=== PATIENT | female | born 1955 | race Caucasian/White ===

== ENCOUNTER 2016-08-08 16:02 | Inpatient (IN) | payer OTHER ==
[~2016-08-08] VITALS: Ht 152.4 cm; Wt 52.0 kg
[2016-08-08 16:06] VITALS: BP 138/76; PULSE 116; RESP 24; TEMP 97.9; O2SAT 95
--- NOTE | 2016-08-08 16:58 | PD ---
HPI Chief Complaint: Abdominal Pain Time Seen by Provider: 16:55 Travel History International Travel<30 days: No Contact w/Intl Traveler<30days: No Traveled to known affect area: No History of Present Illness HPI Patient is a 60-year-old female with a history of alcoholic cirrhosis presenting with worsening ascites. This began approximately one month ago she was seen in our ED previously. Outpatient order was given which her sister paid ashraf for the paracentesis. She has no insurance or PCP/GI and is working on outpatient assistance. She states she has some moderate discomfort on bilateral flanks. She is concerned because she's had shortness of breath as well which is worse with activity and lying flat. She denies any chest pain. She denies any cough or fevers. Denies history of CAD or CHF. She endorses pedal edema as well. She denies any fevers. She states she is not drinking or using Tylenol products. Endorses tobacco use. She has no other healthcare problems or complaints at this time. [facility] Past Medical History Cirrhosis: Yes Past Surgical History Other Surgery: Yes (PARACENTESIS) Social History Alcohol Use: No (stopped 3 months ago-occassional wine) Tobacco Use: Yes (2-3 cig day) Substance Use: No Allergies-Medications (Allergen,Severity, Reaction): Coded Allergies: No Known Allergies (Unverified , 08/08/16) Reported Meds & Prescriptions Reported Meds & Active Scripts Active No Active Prescriptions or Reported Medications Review of Systems Except as stated in HPI: all other systems reviewed are Neg Physical Exam Narrative GENERAL: Well-developed and well-nourished adult female in no acute distress. SKIN: Warm and dry. Good turgor without tenting. HEAD: Normocephalic and atraumatic. EYES: PERRL bilaterally, 5mm. EOMI bilaterally. No injection or icterus present. No proptosis. Lids without edema or erythema. ENT: Buccal mucosa pink and moist. Oropharynx free of erythema, tonsillar hypertrophy, masses, swelling, asymmetry and exudates. Uvula midline and airway patent. NECK: Supple, no midline tenderness, crepitus or step-offs. Trachea midline, no JVD. No cervical or facial lymphadenopathy. CARDIOVASCULAR: Regular rate and rhythm without murmurs, rubs, clicks or gallops. Radial and posterior tibial pulses 2+ bilaterally. 1+ pedal edema bilaterally. Negative bilateral Homans sign. RESPIRATORY: Fine crackles bilateral bases, otherwise clear to auscultation. No distress or use of accessory muscles. Speaks in full sentences. GASTROINTESTINAL: Distended abdomen with positive fluid wave. Caput medusae present. Non-tender.. Normal bowel sounds all 4 quadrants. No masses or organomegaly present. MUSCULOSKELETAL: Patient freely moving all four extremities spontaneously. Extremities without clubbing, cyanosis, or edema. No obvious deformities. NEUROLOGIC: CN II-XII grossly intact. Awake and alert. Motor grossly within normal limits. Normal speech. PSYCHIATRIC: Appropriate mood and affect; insight and judgment normal. Data Data Last Documented VS Vital Signs Date Time Temp Pulse Resp B/P Pulse Ox O2 Delivery O2 Flow Rate FiO2 08/08/16 18:51 103 16 111/66 96 Room Air 08/08/16 16:06 97.9 Orders Direct Bilirubin (08/08/16 16:50) Complete Blood Count With Diff (08/08/16 16:50) Comprehensive Metabolic Panel (08/08/16 16:50) Lipase (08/08/16 16:50) Prothrombin Time / Inr (Pt) (08/08/16 16:50) Act Partial Throm Time (Ptt) (08/08/16 16:50) Urinalysis - C+S If Indicated (08/08/16 16:50) Iv Access Insert/Monitor (08/08/16 16:50) Ecg Monitoring (08/08/16 16:50) Oximetry (08/08/16 16:50) Morphine Inj (Morphine Inj) (08/08/16 17:00) Sodium Chloride 0.9% Flush (Ns Flush) (08/08/16 17:00) Electrocardiogram (08/08/16 16:50) Chest, Single Ap (08/08/16 16:50) B-Type Natriuretic Peptide (08/08/16 16:50) Ammonia (08/08/16 16:50) Labs Laboratory Tests Test 08/08/16 17:10 White Blood Count 8.8 TH/MM3 Red Blood Count 3.98 MIL/MM3 Hemoglobin 13.4 GM/DL Hematocrit 40.1 % Mean Corpuscular Volume 100.7 FL Mean Corpuscular Hemoglobin 33.7 PG Mean Corpuscular Hemoglobin 33.4 % Concent Red Cell Distribution Width 16.1 % Platelet Count 111 TH/MM3 Mean Platelet Volume 9.1 FL Neutrophils (%) (Auto) 64.6 % Lymphocytes (%) (Auto) 17.2 % Monocytes (%) (Auto) 16.5 % Eosinophils (%) (Auto) 1.4 % Basophils (%) (Auto) 0.3 % Neutrophils # (Auto) 5.7 TH/MM3 Lymphocytes # (Auto) 1.5 TH/MM3 Monocytes # (Auto) 1.4 TH/MM3 Eosinophils # (Auto) 0.1 TH/MM3 Basophils # (Auto) 0.0 TH/MM3 CBC Comment DIFF FINAL Differential Comment Prothrombin Time 12.9 SEC Prothromb Time International 1.2 RATIO Ratio Activated Partial 27.1 SEC Thromboplast Time Sodium Level 131 MEQ/L Potassium Level 4.6 MEQ/L Chloride Level 101 MEQ/L Carbon Dioxide Level 16.3 MEQ/L Anion Gap 14 MEQ/L Blood Urea Nitrogen 32 MG/DL Creatinine 2.74 MG/DL Estimat Glomerular Filtration 18 ML/MIN Rate Random Glucose 91 MG/DL Calcium Level 7.7 MG/DL Total Bilirubin 1.6 MG/DL Direct Bilirubin 0.7 MG/DL Aspartate Amino Transf 39 U/L (AST/SGOT) Alanine Aminotransferase 15 U/L (ALT/SGPT) Alkaline Phosphatase 205 U/L Ammonia 55 MCMOL/L Total Protein 6.5 GM/DL Albumin 1.9 GM/DL Lipase 186 U/L [facility] Medical Decision Making Medical Screen Exam Complete: Yes Emergency Medical Condition: Yes Interpretation(s) Laboratory Tests Test 08/08/16 17:10 White Blood Count 8.8 TH/MM3 (4.0-11.0) Red Blood Count 3.98 MIL/MM3 (4.00-5.30) Hemoglobin 13.4 GM/DL (11.6-15.3) Hematocrit 40.1 % (35.0-46.0) Mean Corpuscular Volume 100.7 FL (80.0-100.0) Mean Corpuscular Hemoglobin 33.7 PG (27.0-34.0) Mean Corpuscular Hemoglobin 33.4 % Concent (32.0-36.0) Red Cell Distribution Width 16.1 % (11.6-17.2) Platelet Count 111 TH/MM3 (150-450) Mean Platelet Volume 9.1 FL (7.0-11.0) Neutrophils (%) (Auto) 64.6 % (16.0-70.0) Lymphocytes (%) (Auto) 17.2 % (9.0-44.0) Monocytes (%) (Auto) 16.5 % (0.0-8.0) Eosinophils (%) (Auto) 1.4 % (0.0-4.0) Basophils (%) (Auto) 0.3 % (0.0-2.0) Neutrophils # (Auto) 5.7 TH/MM3 (1.8-7.7) Lymphocytes # (Auto) 1.5 TH/MM3 (1.0-4.8) Monocytes # (Auto) 1.4 TH/MM3 (0-0.9) Eosinophils # (Auto) 0.1 TH/MM3 (0-0.4) Basophils # (Auto) 0.0 TH/MM3 (0-0.2) CBC Comment DIFF FINAL Differential Comment Prothrombin Time 12.9 SEC (9.8-11.6) Prothromb Time International 1.2 RATIO Ratio Activated Partial 27.1 SEC Thromboplast Time (24.3-30.1) Sodium Level 131 MEQ/L (136-145) Potassium Level 4.6 MEQ/L (3.5-5.1) Chloride Level 101 MEQ/L (98-107) Carbon Dioxide Level 16.3 MEQ/L (21.0-32.0) Anion Gap 14 MEQ/L (5-15) Blood Urea Nitrogen 32 MG/DL (7-18) Creatinine 2.74 MG/DL (0.50-1.00) Estimat Glomerular Filtration 18 ML/MIN (>89) Rate Random Glucose 91 MG/DL (74-106) Calcium Level 7.7 MG/DL (8.5-10.1) Total Bilirubin 1.6 MG/DL (0.2-1.0) Direct Bilirubin 0.7 MG/DL (0.0-0.2) Aspartate Amino Transf 39 U/L (15-37) (AST/SGOT) Alanine Aminotransferase 15 U/L (10-53) (ALT/SGPT) Alkaline Phosphatase 205 U/L (45-117) Ammonia 55 MCMOL/L (11-32) Total Protein 6.5 GM/DL (6.4-8.2) Albumin 1.9 GM/DL (3.4-5.0) Lipase 186 U/L (73-393) Last 24 hours Impressions Chest X-Ray 08/08/16 1650 Signed Impressions: Service Date/Time: Monday, August 08, 2016 17:03 - CONCLUSION: Unaerated otherwise negative. Hung Mendoza MD FACR Differential Diagnosis Ascites versus CHF versus cirrhosis versus SBP unlikely Narrative Course Patient is a 60-year-old female history of alcoholism and cirrhosis presenting with some ascites requesting paracentesis. This was recently diagnosed and June and she was able to get one as an outpatient but does not have any funds to pay for additional treatments and currently does not have insurance. This has been progressively worsening over the last 2 weeks. She also has some edema in the legs and dyspnea and MERINO and orthopnea. Mild tachycardia present on exam, find crackles in the bases and 1+ pedal edema bilaterally. Mildly tachypneic without respiratory distress or use of accessory muscles. Patient given morphine for pain and ordered chest x-ray, EKG and labs including BMP, direct bilirubin and ammonia. Chest x-rays under aerated likely due to increased intra-abdominal pressure. She shows platelets 111, MCV 100.7. INR 1.2. Metabolic panel shows bicarbonate 16.3, BUN 32, creatinine 2.74. Anion gap 14. Ammonia 55 about 1.9. Reviewed with Dr. Rubalcava who agrees that this patient has acute renal failure likely secondary to hepatorenal syndrome requiring admission at this time. He also evaluated the patient and agree she is not distress or emergent risk of respiratory failure. Report was given to Dr. Donis who accepted the admission. Diagnosis Primary Impression: Acute renal failure (ARF) Qualified Code: N17.9 - Acute renal failure, unspecified acute renal failure type Additional Impressions: Hepatorenal syndrome Ascites due to alcoholic cirrhosis Admitting Information Admitting Physician Requests: Admit Scripts No Active Prescriptions or Reported Meds Condition: Stable Jaden Rodriguez III Aug 08, 2016 16:58
[2016-08-08] MEDS ORDERED: MORPHINE SULFATE 4 MG/ML INJ IV PUSH ONE (17:00)
[2016-08-08] MEDS ORDERED: SODIUM CHLORIDE 0.9% FLUSH 5 ML FLUSH IVF PRN (17:00)
--- NOTE | 2016-08-08 17:11 | RADRPT ---
EXAM DATE/TIME: 08/08/2016 17:03 [place] COMPARISON: No previous studies available for comparison. INDICATIONS : Shortness of breath. Ascites. MEDICAL HISTORY : Cirrhosis. SURGICAL HISTORY : None. ENCOUNTER: Initial ACUITY: 1 week PAIN SCORE: 5/10 LOCATION: Bilateral chest FINDINGS: Lungs are markedly under aerated but clear. The heart and pulmonary vascularity are normal. The porti on of the bony skeleton visualized is unremarkable. CONCLUSION: Unaerated otherwise negative. Hung Mendoza MD FACR on August 08, 2016 at 17:09 Board Certified Radiologist. This report was verified electronically.
[2016-08-08 17:49] LABS: AUTOMATED NEUTROPHIL # 5.7 TH/MM3 (1.8-7.7); BASOPHIL % 0.3 % (0.0-2.0); EOSINOPHIL # 0.1 TH/MM3 (0-0.4); EOSINOPHIL % 1.4 % (0.0-4.0); HEMATOCRIT 40.1 % (35.0-46.0); HEMO FLAGS DIFF FINAL; LYMPH % 17.2 % (9.0-44.0); LYMPHOCYTE # 1.5 TH/MM3 (1.0-4.8); MEAN CELL VOLUME 100.7 FL (80.0-100.0); MEAN CORPUSCULAR HEMOGLOBIN 33.7 PG (27.0-34.0); MEAN CORPUSCULAR HGB CONC 33.4 % (32.0-36.0); MONO % 16.5 % (0.0-8.0); NEUT % 64.6 % (16.0-70.0); PLATELET COUNT 111 TH/MM3 (150-450); RED BLOOD COUNT 3.98 MIL/MM3 (4.00-5.30); RED CELL DISTRIBUTION WIDTH 16.1 % (11.6-17.2); WHITE BLOOD COUNT 8.8 TH/MM3 (4.0-11.0)
[2016-08-08 17:52] LABS: APTT (PATIENT) 27.1 SEC (24.3-30.1); INTERNATIONAL NORMALIZED RATIO 1.2 RATIO; PROTHROMBIN TIME - PATIENT 12.9 SEC (9.8-11.6)
[2016-08-08 18:03] LABS: ANION GAP 14 MEQ/L (5-15); AST (GOT) 39 U/L (15-37); BICARBONATE 16.3 MEQ/L (21.0-32.0); BLOOD UREA NITROGEN 32 MG/DL (7-18); CHLORIDE 101 MEQ/L (98-107); GLOMERULAR FILTRATION RATE 18 ML/MIN (>89); POTASSIUM 4.6 MEQ/L (3.5-5.1); SODIUM (NA) 131 MEQ/L (136-145)
[2016-08-08 18:05] LABS: ALKALINE PHOSPHATASE 205 U/L (45-117); ALT (GPT) 15 U/L (10-53); TOTAL BILIRUBIN ADULT 1.6 MG/DL (0.2-1.0)
[2016-08-08 18:51] VITALS: BP 111/66; PULSE 103; RESP 16; O2SAT 96
[2016-08-08 19:21] LABS: BACTERIA, URINE OCC /hpf; BLOOD, URINE MOD (NEG); COMMENT (UR) CULTURE INDICATED; CULTURE IF INDICATED CULTURE INDICATED; GLUCOSE,URINE TRACE mg/dL (NEG); KETONE, URINE NEG (NEG); MUCUS URINE FEW /lpf (OCC); NITRITE,URINE NEG (NEG); PH, URINE 5.5 (5.0-8.5); SQUAMOUS EPITHELIAL CELL URINE 1 /hpf (0-5); URINE COLOR YELLOW (YELLW/STRAW)
--- NOTE | 2016-08-08 22:26 | HHI.HP ---
HPI Service Family Medicine Primary Care Physician No Primary Care Physician Admission Diagnosis ARF, ASCITES, HEPATORENAL? Diagnoses: International Travel<30 Days: No Contact w/Intl Traveler<30days: No Known Affected Area: No History of Present Illness Ms. Parker is a 60 y/o F with a PMHx of cirrhosis presenting with ABD discomfort and dyspnea on exertion. She is accompanied by her son who assists with her interview. Patient was diagnosed with cirrhosis related to alcohol consumption in late 2015. She therapeutic paracentesis performed on 07/22/16 for abdominal discomfort due to ascites.Since that paracentesis her status did improve, however over the last week she began to notice her abdomen beginning to increase in size. She began to experience dyspnea on exertion approximately a week ago, however now due to the increased ascitic fluid is experiencing dyspnea at rest. Over this time from she also has experienced increased fatigue , balance issues, as well as decreased urination and bowel movements. She had a nontraumatic fall approximately 1 week ago due to loss of balance without injury. She reports that her baseline she urinates 3 times a day, but now only has trickles of urine. She states her last BM was 1 week ago and that it was nonbloody diarrhea. Of note patient has been taking Aleve up to 4 times per day to assist with pain due to increased abdominal distention. Otherwise she has no complaints and denies any fevers, chills, chest pain, nausea, vomiting, or calf tenderness. She reports that her last drink was approximately 2 months ago. ( Jesús Sharif MD R1) Review of Systems Constitutional: DENIES: Fever Eyes: DENIES: Blurred vision, Eye pain Ears, nose, mouth, throat: DENIES: Tinnitus, Hearing loss Respiratory: COMPLAINS OF: Shortness of breath, DENIES: Cough Cardiovascular: DENIES: Chest pain, Palpitations Gastrointestinal: COMPLAINS OF: Diarrhea, DENIES: Nausea, Vomiting Musculoskeletal: COMPLAINS OF: Stiffness (Leg stiffness) Integumentary: DENIES: Rash Hematologic/lymphatic: DENIES: Lymphadenopathy Immunologic/allergic: DENIES: Urticaria Neurologic: DENIES: Headache Psychiatric: DENIES: Mood changes (Jesús Sharif MD R1) Past Family Social History Past Medical History Alcoholic liver cirrhosis Past Surgical History ABD Paracentesis x1 (07/22/16) (Jesús Sharif MD R1) Allergies: Coded Allergies: No Known Allergies (Unverified , 08/08/16) Family History Mother - Atrial fibrillation, COPD, CHF, Renal Disease Social History Alcohol - no drinks for last 2 months, up to 4 per day at the most during her history Tobacco - pack per week Illicit drugs - none reported Lives in [facility] with her mother in a house. Currently unemployed. No PCP. No insurance currently, applied for patient assistance. (Jesús Sharif MD R1) Physical Exam Vital Signs Vital Signs Date Time Temp Pulse Resp B/P Pulse Ox O2 Delivery O2 Flow Rate FiO2 08/08/16 18:51 103 16 111/66 96 Room Air 08/08/16 16:15 25 08/08/16 16:06 97.9 116 24 138/76 95 Room Air Physical Exam GENERAL: 60 y/o F lying in bed in no acute distress SKIN: Warm and dry. Capillary refill <2 seconds. HEENT: Normocephalic, atraumatic with EOMI. MMM with clear oropharynx. No scleral icterus or injection. CARDIOVASCULAR: RRR with no MGR. Visible JVP. RESPIRATORY: Fine crackles throughout both lung dobson. No increased work of breathing. GASTROINTESTINAL: Nontender distended ABD with caput medusae. Fluid wave positive. Normal BS. No palpable masses. Rebound tenderness negative. Difficult to evaluate organomegaly at this time. MUSCULOSKELETAL: Extremities without cyanosis. Pedal edema 1+. 2+ pulses in all 4 extremities. No calf tenderness. NEUROLOGICAL: Awake and alert. Motor and sensory grossly within normal limits. Muscle strength WNL. Normal speech. Laboratory Laboratory Tests Test 08/08/16 08/08/16 17:10 19:00 White Blood Count 8.8 Red Blood Count 3.98 Hemoglobin 13.4 Hematocrit 40.1 Mean Corpuscular Volume 100.7 Mean Corpuscular Hemoglobin 33.7 Mean Corpuscular Hemoglobin 33.4 Concent Red Cell Distribution Width 16.1 Platelet Count 111 Mean Platelet Volume 9.1 Neutrophils (%) (Auto) 64.6 Lymphocytes (%) (Auto) 17.2 Monocytes (%) (Auto) 16.5 Eosinophils (%) (Auto) 1.4 Basophils (%) (Auto) 0.3 Neutrophils # (Auto) 5.7 Lymphocytes # (Auto) 1.5 Monocytes # (Auto) 1.4 Eosinophils # (Auto) 0.1 Basophils # (Auto) 0.0 CBC Comment DIFF FINAL Differential Comment Prothrombin Time 12.9 Prothromb Time International 1.2 Ratio Activated Partial 27.1 Thromboplast Time Sodium Level 131 Potassium Level 4.6 Chloride Level 101 Carbon Dioxide Level 16.3 Anion Gap 14 Blood Urea Nitrogen 32 Creatinine 2.74 Estimat Glomerular Filtration 18 Rate Random Glucose 91 Calcium Level 7.7 Total Bilirubin 1.6 Direct Bilirubin 0.7 Aspartate Amino Transf 39 (AST/SGOT) Alanine Aminotransferase 15 (ALT/SGPT) Alkaline Phosphatase 205 Ammonia 55 B-Type Natriuretic Peptide 83 Total Protein 6.5 Albumin 1.9 Lipase 186 Urine Color YELLOW Urine Turbidity CLOUDY Urine pH 5.5 Urine Specific [place] 1.017 Urine Protein 30 Urine Glucose (UA) TRACE Urine Ketones NEG Urine Occult Blood MOD Urine Nitrite NEG Urine Bilirubin NEG Urine Urobilinogen LESS THAN 2.0 Urine Leukocyte Esterase LARGE Urine RBC 17 Urine WBC Urine WBC Clumps MANY Urine Squamous Epithelial 1 Cells Urine Bacteria OCC Urine Mucus FEW Microscopic Urinalysis Comment CULTURE INDICATED Date/Time Procedure Status Source Growth 08/08/16 19:00 Urine Culture Received Urine Random Urine Pending (Jesús Sharif MD R1) Result Diagram: 08/08/16170908/08/16 171 Assessment and Plan Assessment and Plan Ms. Parker is a 60 y/o F with a PMHx of cirrhosis presenting with ABD discomfort and dyspnea on exertion. Code Status FULL Discussed Condition With Dr. Rodriguez, ER Physician Dr. Madrid (Jesús Sharif MD R1) Problem List: (1) Hepatorenal syndrome Status: Acute Plan: Patient with alcoholic cirrhosis presenting with increased abdominal distention and dyspnea found to have creatinine of 2.74 (baseline 0.4) likely causing hepatorenal syndrome CXR: Negative exam CBC: WBC 8.8, H/H13.4/40.1, platelets 111 CMP: Sodium 131, BUN 32, creatinine 2.74, GFR 18, calcium 7.7, T bili 1.6, AST 39, ALT 15, alkaline phosphatase 205: LDH 320 Coags: PT 12.9, INR 1.2, PTT 27.1 UA: Cloudy, 30 protein, moderate occult blood, large leukocyte esterase, many white blood cell clots, culture indicated Urine culture: Pending Ammonia: 55 BMP: 83 Albumin 1.9 Lipase: 186 Alcohol: Less than 3 Lasix 40 mg IVP once Monitor strict I/Os Multivitamin, thiamine, and folic acid daily Ultrasound-guided abdominal paracentesis: Pending with fluid evaluation to follow Consult nephrology (2) Acute renal failure (ARF) Status: Acute Plan: Patient with creatinine of 2.74 (baseline 0.4 per chart review) Please see plan as above for hepatorenal syndrome (3) Ascites due to alcoholic cirrhosis Status: Acute Plan: Patient diagnosed with alcoholic cirrhosis presenting with increased abdominal distention due to ascites Please see plan as above for hepatorenal syndrome (4) Nutrition, metabolism, and development symptoms Status: Acute Plan: Fluids: Deferred at this time Electrolytes: Monitor with daily labs Diet: Renal diet (5) No contraindication to deep vein thrombosis (DVT) prophylaxis Status: Acute Plan: Hold heparin prior to paracentesis procedure (Jesús Sharif MD R1) Physician Certification 2 Midnight Certification Type: Admission for Inpatient Services Order for Inpatient Services The services are ordered in accordance with Medicare regulations or non- Medicare payer requirements, as applicable. In the case of services not specified as inpatient-only, they are appropriately provided as inpatient services in accordance with the 2-midnight benchmark. Estimated LOS (days): 3 3 days is the estimated time the patient will need to remain in the hospital, assuming treatment plan goals are met and no additional complications. Post-Hospital Plan: Home (Jesús Sharif MD R1) 2 Midnight Certification Type: Admission for Inpatient Services Post-Hospital Plan: Home (Christiano Roman MD) Problem Qualifiers (1) Acute renal failure (ARF): Qualified Code: N17.9 - Acute renal failure, unspecified acute renal failure type Jesús Sharif MD R1 Aug 08, 2016 22:26 Christiano Roman MD Aug 09, 2016 16:15
[2016-08-08 23:00] VITALS: BP 115/71; PULSE 104; RESP 16; O2SAT 97
[2016-08-09] VITALS (11 sets, daily range): BP systolic 96–128; BP diastolic 54–79; PULSE 86–107; RESP 14–21; TEMP 96.6–98.3; O2SAT 91–100
[2016-08-09] MEDS ORDERED: HEPARIN SODIUM - SQ 10,000 UNITS/ML VIAL SQ SCH
[2016-08-09] MEDS ORDERED: FUROSEMIDE 40 MG/4 ML VIAL IV PUSH ONE
[2016-08-09] MEDS ORDERED: MORPHINE SULFATE 4 MG/ML INJ IV PUSH PRN
[2016-08-09] MEDS: SODIUM CHLORIDE 0.9% FLUSH 5 ML FLUSH FLUSH SCH ×3 (01:07→21:01)
[2016-08-09 01:12] LABS: LDH SERUM 320 U/L (84-246)
[2016-08-09] MEDS ORDERED: NALOXONE HCL 0.4 MG/ML AMP IV PRN ×2 (07:15)
[2016-08-09] MEDS: cefTRIAXone INJ 1,000 MG in SODIUM CHLORIDE 0.9% INJ 100 ML IV SCH ×3 (09:00→21:02)
[2016-08-09] MEDS: FOLIC ACID 1 MG TAB PO SCH (09:03)
[2016-08-09] MEDS: MULTIVITAMIN TAB PO SCH (09:03)
[2016-08-09] MEDS: THIAMINE HCL 100 MG TAB PO SCH (09:03)
[2016-08-09] MEDS: LACTULOSE SYRUP 20 GM/30 ML CUP PO SCH (09:04)
--- NOTE | 2016-08-09 10:07 | EKG ---
Date Performed: 08/08/2016 Time Performed: 17:48:05 PTAGE: 60 years EKG: SINUS TACHYCARDIA LOW QRS VOLTAGE IN PRECORDIAL LEADS ABNORMAL RHYTHM ECG NO PREVIOUS TRACING DOCTOR: Mo Oneal Interpretating Date/Time 08/09/2016 10:03:38
--- NOTE | 2016-08-09 11:30 | PD.RAD ---
Post US Procedure Prog Note Pre Procedure Diagnosis: (1) Hepatorenal syndrome (2) Ascites due to alcoholic cirrhosis Post Procedure Diagnosis: (1) Hepatorenal syndrome (2) Ascites due to alcoholic cirrhosis Procedure Date: Aug 09, 2016 Supervising Radiologist: Yaakov Salomon Anesthesia: Local Plan of Activity Patient to Unit: Nursing Unit Patient Condition: Fair See PACS Report for procedural detail/treatment Drainage Procedure Procedure 1 Imaging Guidance: Ultrasound Side: Right Procedure Type: Paracentesis Procedure: Removal Drainage: Suction Fluid Description: Cloudy, Yellow Yaakov Salomon MD Aug 09, 2016 11:30
--- NOTE | 2016-08-09 11:54 | PD.CONS ---
HPI Service Nephrology Consult Requested By Dr. Sharif Reason for Consult Acute renal failure Primary Care Physician No Primary Care Physician History of Present Illness Patient is a 60-year-old female with history of cirrhosis of the liver, she has previous paracenteses, she was told her cirrhosis due to alcoholism and she admitted to drinking 4 drinks a day along period of time, she has not noticed decreased urine output increasing abdominal girth and decrease in stool and her appetite. Her creatinine is 2.74, this is change her June 2016 labs showed creatinine of 0.4. She was taking Aleve daily bases. Review of Systems Constitutional: COMPLAINS OF: Fatigue Cardiovascular: COMPLAINS OF: Lower Extremity Edema Gastrointestinal: COMPLAINS OF: Abdominal pain, Anorexia Genitourinary: COMPLAINS OF: Urinary frequency Past Family Social History Allergies: Coded Allergies: No Known Allergies (Unverified , 08/08/16) Past Medical History Alcoholic cirrhosis Past Surgical History Paracenteses done Reported Medications Reported Meds & Active Scripts Active No Active Prescriptions or Reported Medications Active Ordered Medications Current Medications Medications (Trade) Dose Ordered Sig/Cosme Route Start Time Stop Time Status Last Admin (NS Flush) 2 ml UNSCH PRN FLUSH 08/09/16 00:00 (NS Flush) 2 ml BID FLUSH 08/09/16 00:00 08/09/16 01:07 (Narcan Inj) 0.4 mg UNSCH PRN IV 08/09/16 00:00 (Morphine Inj) 2 mg Q4HR PRN IV PUSH 08/09/16 00:00 08/09/16 01:50 (Roxicodone) 10 mg Q4H PRN PO 08/09/16 07:15 (Roxicodone) 5 mg Q4H PRN PO 08/09/16 07:15 08/09/16 09:07 (Theragran) 1 tab DAILY PO 08/09/16 09:00 08/09/16 09:03 (Vitamin B1) 100 mg DAILY PO 08/09/16 09:00 08/09/16 09:03 (Folate) 1 mg DAILY PO 08/09/16 09:00 08/09/16 09:03 Lactulose 15 ml 15 ml DAILY PO 08/09/16 09:00 08/09/16 09:04 (Rocephin Inj/NS Inj) 100 ml @ 200 mls/hr Q24H IV 08/09/16 09:00 08/09/16 09:04 Family History Mother has history of heart disease, and renal disease Social History She has history of 4 drinks per day and quit about 2 months ago Smokes cigarettes one pack per week Physical Exam Vital Signs Vital Signs Date Time Temp Pulse Resp B/P Pulse Ox O2 Delivery O2 Flow Rate FiO2 08/09/16 11:25 97.0 93 16 107/63 91 08/09/16 11:12 97.0 93 14 104/58 97 08/09/16 10:09 92 21 08/09/16 09:41 97.0 103 18 119/78 95 08/09/16 08:46 98.3 104 21 114/79 97 08/09/16 05:14 97.8 105 20 108/69 95 08/09/16 01:57 97.8 107 20 128/72 95 08/09/16 01:00 96 08/08/16 23:00 104 16 115/71 97 Room Air 08/08/16 18:51 103 16 111/66 96 Room Air 08/08/16 16:15 25 08/08/16 16:06 97.9 116 24 138/76 95 Room Air Physical Exam GENERAL: Well-nourished, well-developed patient. SKIN: Warm and dry. HEAD: Normocephalic. EYES: No scleral icterus. No injection or drainage. NECK: Supple, trachea midline. No JVD or lymphadenopathy. CARDIOVASCULAR: Regular rate and rhythm without murmurs, gallops, or rubs. RESPIRATORY: Breath sounds equal bilaterally. No accessory muscle use. GASTROINTESTINAL: Abdomen distended. EXTREMITIES: No cyanosis, 1+ edema. NEUROLOGICAL: Awake, alert, and oriented x 3. Non-focal. Laboratory Laboratory Tests Test 08/08/16 08/08/16 08/09/16 17:10 19:00 09:00 White Blood Count 8.8 Red Blood Count 3.98 Hemoglobin 13.4 Hematocrit 40.1 Mean Corpuscular Volume 100.7 Mean Corpuscular Hemoglobin 33.7 Mean Corpuscular Hemoglobin 33.4 Concent Red Cell Distribution Width 16.1 Platelet Count 111 Mean Platelet Volume 9.1 Neutrophils (%) (Auto) 64.6 Lymphocytes (%) (Auto) 17.2 Monocytes (%) (Auto) 16.5 Eosinophils (%) (Auto) 1.4 Basophils (%) (Auto) 0.3 Neutrophils # (Auto) 5.7 Lymphocytes # (Auto) 1.5 Monocytes # (Auto) 1.4 Eosinophils # (Auto) 0.1 Basophils # (Auto) 0.0 CBC Comment DIFF FINAL Differential Comment Prothrombin Time 12.9 Prothromb Time International 1.2 Ratio Activated Partial 27.1 Thromboplast Time Sodium Level 131 Potassium Level 4.6 Chloride Level 101 Carbon Dioxide Level 16.3 Anion Gap 14 Blood Urea Nitrogen 32 Creatinine 2.74 Estimat Glomerular Filtration 18 Rate Random Glucose 91 Calcium Level 7.7 Total Bilirubin 1.6 Direct Bilirubin 0.7 Aspartate Amino Transf 39 (AST/SGOT) Alanine Aminotransferase 15 (ALT/SGPT) Alkaline Phosphatase 205 Ammonia 55 B-Type Natriuretic Peptide 83 Total Protein 6.5 Albumin 1.9 Lipase 186 Lactate Dehydrogenase 320 Ethyl Alcohol Level LESS THAN 3 Urine Color YELLOW Urine Turbidity CLOUDY Urine pH 5.5 Urine Specific [place] 1.017 Urine Protein 30 Urine Glucose (UA) TRACE Urine Ketones NEG Urine Occult Blood MOD Urine Nitrite NEG Urine Bilirubin NEG Urine Urobilinogen LESS THAN 2.0 Urine Leukocyte Esterase LARGE Urine RBC 17 Urine WBC Urine WBC Clumps MANY Urine Squamous Epithelial 1 Cells Urine Bacteria OCC Urine Mucus FEW Microscopic Urinalysis Comment CULTURE INDICATED Salicylates Level LESS THAN 1.7 Date/Time Procedure Status Source Growth 08/08/16 19:00 Urine Culture Received Urine Random Urine Pending Result Diagram: 08/08/16 1710 08/08/16 1710 Imaging Last Impressions Chest X-Ray 08/08/16 1650 Signed Impressions: Service Date/Time: Monday, August 08, 2016 17:03 - CONCLUSION: Unaerated otherwise negative. Hung Mendoza MD FACR Assessment and Plan Problem List: (1) Acute renal failure (ARF) Plan: This is likely due to hepatorenal failure and we will check a urine sodium and creatinine, continue to monitor output use albumin Avoid nephrotoxins/NSAID'S She has large volume paracenteses done replaced with albumin Follow CMP (2) Hepatorenal syndrome Plan: Likely due to advanced cirrhosis (3) Ascites due to alcoholic cirrhosis Plan: Continue to monitor Problem Qualifiers (1) Acute renal failure (ARF): Qualified Code: N17.9 - Acute renal failure, unspecified acute renal failure type Sandro Larios MD Aug 09, 2016 11:54
[2016-08-09] MEDS ORDERED: ALBUMIN HUMAN 25% 75 GM IV ONE (12:00)
--- NOTE | 2016-08-09 12:09 | RADRPT ---
EXAM DATE/TIME: 08/09/2016 09:15 [facility] COMPARISON: US GUIDED ABD PARACENTESIS, July 22, 2016, 10:14. INDICATIONS : Ascites. MEDICAL HISTORY : Ascites. Dyspnea. Cirrhosis. ETOH abuse. Muscle stiffness. SURGICAL HISTORY : Paracentesis. ENCOUNTER: Initial ACUITY: 2 weeks PAIN SCORE: 10/10 LOCATION: Right lower quadrant TECHNIQUE: 1. Ultrasound guidance for abdominal paracentesis. 2. Paracentesis. 36416 cc of clear yellow fluid removed. The risks, benefits, and alternatives to ultrasound guided paracentesis were explained to the patient in detail including the risk of bleeding and infection. Written and verbal informed consent was obt ained. With the patient on the ultrasound table, ultrasound imaging was used to select the most appropriate approach for paracentesis. Overlying skin was prepped and draped in the usual sterile fashion and wi th a local anesthetic, a dermatotomy was made with an 11 blade scalpel. A 6 Iranian [id number] ca theter was introduced into the peritoneal cavity and fluid was collected. The patient tolerated the procedure well and left the ultrasound suite in stable condition. CONCLUSION: Uncomplicated ultrasound guided paracentesis. Yaakov Salomon MD on August 09, 2016 at 12:06 Board Certified Radiologist. This report was verified electronically.
--- NOTE | 2016-08-09 12:59 | RADRPT ---
EXAM DATE/TIME: 08/09/2016 11:53 [facility] COMPARISON: No previous studies available for comparison. INDICATIONS : Hematuria. MEDICAL HISTORY : Ascites. Dyspnea. Cirrhosis. ETOH. Muscle stiffness. SURGICAL HISTORY : Paracentesis. ENCOUNTER: Initial ACUITY: 1 day PAIN SCORE: 4/10 LOCATION: Bilateral flank MEASUREMENTS: RIGHT KIDNEY: 12.2 x 6.2 x 5.8 cm LEFT KIDNEY: 10.9 x 5.1 x 5.2 cm FINDINGS: RIGHT KIDNEY: Renal cortex is normal in thickness and echotexture. No hydronephrosis, stone, or mass. LEFT KIDNEY: Renal cortex is normal in thickness and echotexture. No hydronephrosis, stone, or mass. BLADDER: There is a Reynolds catheter in place. OTHERS: Ascites is seen. CONCLUSION: 1. Normal appearance the kidneys. 2. Reynolds catheter in place. 3. Mild ascites seen. Jaden Simpson MD on August 09, 2016 at 12:55 Board Certified Radiologist. This report was verified electronically.
[2016-08-09] MEDS ORDERED: ALBUMIN HUMAN 25% 25 GM/100 ML BAGP IV SCH (13:00)
--- NOTE | 2016-08-09 14:16 | HHI.FPPN ---
Subjective Remarks No events overnight. Afebrile, vitals are stable. 300 mL of UOP. 13151 cc clear yellow fluid removed via paracentesis this morning. Patient did not have any specific complaints or concerns this morning. Denies fevers, chills, abdominal pain or discomfort, N/V. Objective Vitals Vital Signs Date Time Temp Pulse Resp B/P Pulse Ox O2 Delivery O2 Flow Rate FiO2 08/09/16 11:25 97.0 93 16 107/63 91 08/09/16 11:12 97.0 93 14 104/58 97 08/09/16 10:09 92 21 08/09/16 09:41 97.0 103 18 119/78 95 08/09/16 08:46 98.3 104 21 114/79 97 08/09/16 05:14 97.8 105 20 108/69 95 08/09/16 01:57 97.8 107 20 128/72 95 08/09/16 01:00 96 08/08/16 23:00 104 16 115/71 97 Room Air 08/08/16 18:51 103 16 111/66 96 Room Air 08/08/16 16:15 25 08/08/16 16:06 97.9 116 24 138/76 95 Room Air I/O 08/08/16 08/08/16 08/08/16 08/09/16 08/09/16 08/09/16 07:00 15:00 23:00 07:00 15:00 23:00 Intake Total 120 ml Output Total 300 ml Balance -180 ml Intake IV Total 120 ml Output Urine Total 300 ml # Bowel Movements 0 Result Diagram: 08/08/16170908/08/161709 Objective Remarks GENERAL: Lying in bed in NAD SKIN: Warm and dry. HEENT: Normocephalic, atraumatic. EOMI. MMM with clear oropharynx. No scleral icterus or injection. CARDIOVASCULAR: RRR with no MGR. RESPIRATORY: Fine crackles throughout both lung dobson. No increased work of breathing. GASTROINTESTINAL: Abdomen soft, nontender. Normal BS. No palpable masses. No rebound tenderness. MUSCULOSKELETAL: Extremities without cyanosis. Pedal edema 1+. 2+ pulses in all 4 extremities. No calf tenderness. NEUROLOGICAL: Awake and alert. chemistry quality control technician grossly intact. Motor and sensory grossly within normal limits. Normal speech. A/P Assessment and Plan 60 year old female with h/o cirrhosis presenting with abdominal discomfort and MERINO. Problem List: (1) Hepatorenal syndrome Status: Acute Plan: Patient with alcoholic cirrhosis presenting with increased abdominal distention and dyspnea found to have creatinine of 2.74 (baseline 0.4) likely causing hepatorenal syndrome - Consulted nephrology - Monitor strict I/Os - Abdominal paracentesis removed 36542 cc this morning. Fluid analysis consistent with transudate, likely etiology is cirrhosis - Albumin 25 gm IV q12h - Obtain urine sodium and creatinine - Monitor vital signs closely - Avoid nephrotoxins and NSAIDs - Multivitamin, thiamine, and folic acid daily (2) Acute renal failure (ARF) Status: Acute Plan: Creatinine of 2.74 on admission (baseline 0.4 per chart review) - Plan as above (3) Ascites due to alcoholic cirrhosis Status: Acute Plan: Patient diagnosed with alcoholic cirrhosis presenting with increased abdominal distention due to ascites - Plan as above (4) Abnormal urinalysis Status: Acute Plan: UA showing large LE, negative nitrite, moderate occult blood, many WBC clumps, 1 squamous cell Follow urine culture Will treat with Rocephin 1 gm IV q24h (5) No contraindication to deep vein thrombosis (DVT) prophylaxis Status: Acute Plan: Continue heparin 5000 units subq q12h (6) Nutrition, metabolism, and development symptoms Status: Acute Plan: Fluids: none Electrolytes: continue to monitor Renal diet DVT PPX: Heparin Problem Qualifiers (1) Acute renal failure (ARF): Qualified Code: N17.9 - Acute renal failure, unspecified acute renal failure type Gatito Bejarano MD R1 Aug 09, 2016 14:16
[2016-08-09 15:47] LABS: PERITONEAL HISTIOCYTES 9 %; PERITONEAL LYMPHS 31 %; PERITONEAL MONOS 10 %; PERITONEAL POLYS(SEGS) 50 %; PERITONEAL WBC 145 /MM3 (0-10)
[2016-08-09 16:03] LABS: POTASSIUM 4.1 MEQ/L (3.5-5.1)
--- NOTE | 2016-08-09 16:20 | HHI.FPPN ---
Subjective Remarks Attending note: 60-year-old woman admitted with increasing abdominal girth and discomfort with a history of cirrhosis and ascites presumed to be of an alcohol origin by history. Recently the patient did have a therapeutic paracentesis which has afforded some relief early on. She is specifically requesting to have consideration of the paracentesis for comfort. Please refer to resident history and physical for complete discussion of present illness, past medical history, family history, social history and review of systems. Objective Vitals Vital Signs Date Time Temp Pulse Resp B/P Pulse Ox O2 Delivery O2 Flow Rate FiO2 08/09/16 12:00 96.6 91 18 110/57 100 08/09/16 11:25 97.0 93 16 107/63 91 08/09/16 11:12 97.0 93 14 104/58 97 08/09/16 10:09 92 21 08/09/16 09:41 97.0 103 18 119/78 95 08/09/16 08:46 98.3 104 21 114/79 97 08/09/16 05:14 97.8 105 20 108/69 95 08/09/16 01:57 97.8 107 20 128/72 95 08/09/16 01:00 96 08/08/16 23:00 104 16 115/71 97 Room Air 08/08/16 18:51 103 16 111/66 96 Room Air I/O 08/08/16 08/08/16 08/08/16 08/09/16 08/09/16 08/09/16 07:00 15:00 23:00 07:00 15:00 23:00 Intake Total 120 ml 240 ml Output Total 300 ml Balance -180 ml 240 ml Intake Oral 240 ml IV Total 120 ml Output Urine Total 300 ml # Bowel Movements 0 Result Diagram: 08/08/16 1710 08/09/16 1519 Objective Remarks Vital signs noted, afebrile is status post paracentesis at the time of visit. Gen. appearance: Older than her chronologic age appearing woman with evidence of facial musculature loss, alert, oriented, pleasant in conversation. HEENT: Grossly nonlocalizing, refer to the resident's description. Lungs: Hyperresonant to percussion and diminished breath sounds at the right base otherwise clear Cardiac: S1-S2, no definite S3 or murmurs. Abdomen: Active bowel sounds, surgical bandage right lateral abdomen, some mild nonspecific discomfort on deep palpation in all quadrants, no organomegaly evident no masses Extremities: Evidence of weight loss and atrophy. Neurologic: No asterixis mental status is alert and oriented. Reynolds catheter at bedside notably to be evidence of probable blood with clots and discoloration of urine A/P Assessment and Plan Clinical assessment: 60-year-old woman admitted with increasing abdominal girth, previously diagnosed ascites probably on the basis of alcoholic liver disease who has undergone a therapeutic paracentesis. Significant concern regarding elevated creatinine and possible pending hepatorenal syndrome. Renal consultation. As noted patient was seen and examined. Case reviewed and discussed with resident team. Agree with the plan as discussed with me and documented in the resident note. Evaluation of hematuria in Reynolds catheter, urine culture pending, para Antibiotics Problem List: (1) Hepatorenal syndrome Status: Acute Plan: Patient with alcoholic cirrhosis presenting with increased abdominal distention and dyspnea found to have creatinine of 2.74 (baseline 0.4) likely causing hepatorenal syndrome - Consulted nephrology - Monitor strict I/Os - Abdominal paracentesis removed 67130 cc this morning. Fluid analysis consistent with transudate, likely etiology is cirrhosis - Albumin 25 gm IV q12h - Obtain urine sodium and creatinine - Monitor vital signs closely - Avoid nephrotoxins and NSAIDs - Multivitamin, thiamine, and folic acid daily (2) Acute renal failure (ARF) Status: Acute Plan: Creatinine of 2.74 on admission (baseline 0.4 per chart review) - Plan as above (3) Ascites due to alcoholic cirrhosis Status: Acute Plan: Patient diagnosed with alcoholic cirrhosis presenting with increased abdominal distention due to ascites - Plan as above (4) Abnormal urinalysis Status: Acute Plan: UA showing large LE, negative nitrite, moderate occult blood, many WBC clumps, 1 squamous cell Follow urine culture Will treat with Rocephin 1 gm IV q24h (5) No contraindication to deep vein thrombosis (DVT) prophylaxis Status: Acute Plan: Continue heparin 5000 units subq q12h (6) Nutrition, metabolism, and development symptoms Status: Acute Plan: Fluids: none Electrolytes: continue to monitor Renal diet DVT PPX: Heparin Problem Qualifiers (1) Acute renal failure (ARF): Qualified Code: N17.9 - Acute renal failure, unspecified acute renal failure type Christiano Roman MD Aug 09, 2016 16:20
[2016-08-09] MEDS: HEPARIN SODIUM - SQ 10,000 UNITS/ML VIAL SQ SCH (20:56)
[2016-08-10] VITALS (10 sets, daily range): BP systolic 82–102; BP diastolic 45–62; PULSE 60–97; RESP 16–20; TEMP 97–98.5; O2SAT 94–99
[2016-08-10] MEDS: ALBUMIN HUMAN 25% 25 GM/100 ML BAGP IV SCH ×3 (00:16→23:54)
[2016-08-10 06:04] LABS: HEMATOCRIT 32.6 % (35.0-46.0); MEAN CORPUSCULAR HEMOGLOBIN 33.7 PG (27.0-34.0); MEAN CORPUSCULAR HGB CONC 34.4 % (32.0-36.0); PLATELET COUNT 95 TH/MM3 (150-450); RED BLOOD COUNT 3.33 MIL/MM3 (4.00-5.30); RED CELL DISTRIBUTION WIDTH 15.3 % (11.6-17.2); WHITE BLOOD COUNT 7.4 TH/MM3 (4.0-11.0)
[2016-08-10 06:09] LABS: HEMO FLAGS AUTO DIFF
[2016-08-10 06:44] LABS: BICARBONATE 19.7 MEQ/L (21.0-32.0); CALCIUM-PROTEIN CORRECTED 8.3 MG/DL (8.5-10.1); TOTAL BILIRUBIN ADULT 1.3 MG/DL (0.2-1.0)
[2016-08-10 07:34] LABS: EOSINOPHILS 4 % (0-4); NEUTROPHIL # MANUAL DIFF 5.5 TH/MM3 (1.8-7.7); POLYS (SEG NEUTROPHILS) 74 % (16-70); SCAN/DIFF FINAL DIFF MANUAL; WBC DIFF SAMPLE 100
[2016-08-10 07:35] LABS: BURR CELLS 1+ (NORMAL); PLATELET ESTIMATE SMEAR LOW (NORMAL); PLATELET MORPHOLOGY NORMAL (NORMAL)
[2016-08-10 07:36] LABS: ACANTHOCYTES OCC (NORMAL)
[2016-08-10] MEDS: FOLIC ACID 1 MG TAB PO SCH (08:30)
[2016-08-10] MEDS: SODIUM CHLORIDE 0.9% FLUSH 5 ML FLUSH FLUSH SCH ×2 (08:30→21:00)
[2016-08-10] MEDS: LACTULOSE SYRUP 20 GM/30 ML CUP PO SCH (08:31)
[2016-08-10] MEDS: THIAMINE HCL 100 MG TAB PO SCH (08:31)
[2016-08-10] MEDS: MULTIVITAMIN TAB PO SCH (08:31)
[2016-08-10] MEDS: HEPARIN SODIUM - SQ 10,000 UNITS/ML VIAL SQ SCH (09:00)
--- NOTE | 2016-08-10 11:25 | HHI.FPPN ---
Subjective Remarks No events overnight. BP has ranged 80s-110s/50s-60s over past 24 hours. Patient has been afebrile. This morning she reports a slight increase in abdominal distension. Denies fevers, chills, abdominal pain. Denies dizziness or lightheadedness. Objective Vitals Vital Signs Date Time Temp Pulse Resp B/P Pulse Ox O2 Delivery O2 Flow Rate FiO2 08/10/16 08:05 98.1 89 18 100/49 98 08/10/16 04:25 95/52 08/10/16 04:13 98.1 97 20 83/54 94 08/10/16 00:16 16 08/10/16 00:15 92/58 08/10/16 00:00 97.1 93 20 82/51 96 08/09/16 21:06 16 08/09/16 19:34 97.9 86 20 96/54 96 08/09/16 16:00 97.1 98 18 97/56 97 08/09/16 12:00 96.6 91 18 110/57 100 08/09/16 11:25 97.0 93 16 107/63 91 08/09/16 11:12 97.0 93 14 104/58 97 I/O 08/09/16 08/09/16 08/09/16 08/10/16 08/10/16 08/10/16 07:00 15:00 23:00 07:00 15:00 23:00 Intake Total 120 ml 240 ml Output Total 300 ml 300 ml 450 ml 350 ml Balance -180 ml -60 ml -450 ml -350 ml Intake Oral 240 ml IV Total 120 ml Output Urine Total 300 ml 300 ml 450 ml 350 ml # Bowel Movements 0 Result Diagram: 08/10/16 0541 08/10/16 0541 Objective Remarks GENERAL: Lying in bed in NAD SKIN: Warm and dry. HEENT: Normocephalic, atraumatic. EOMI. MMM with clear oropharynx. No scleral icterus or injection. CARDIOVASCULAR: RRR with no MGR. RESPIRATORY: Bibasilar crackles. No increased work of breathing. GASTROINTESTINAL: Abdomen soft, nontender, slightly increased distension compared to yesterday s/p paracentesis. Normal BS. No palpable masses. No rebound tenderness. MUSCULOSKELETAL: Extremities without cyanosis. Pedal edema 1+. 2+ pulses in all 4 extremities. No calf tenderness. NEUROLOGICAL: Awake and alert. sleeve turner grossly intact. Motor and sensory grossly within normal limits. Normal speech. A/P Assessment and Plan 60 year old female with h/o cirrhosis presenting with abdominal discomfort and MERINO. Admitted with: Problem List: (1) Hepatorenal syndrome Status: Acute Plan: Patient with alcoholic cirrhosis presenting with increased abdominal distension and dyspnea found to have creatinine of 2.74 (baseline 0.4) likely causing hepatorenal syndrome - Consulted nephrology - Monitor strict I/Os - Abdominal paracentesis removed 37800 cc 08/09. Fluid analysis consistent with transudate, likely etiology is cirrhosis - Albumin 25 gm IV q12h - Monitor vital signs closely for worsening hypotension - Avoid nephrotoxins and NSAIDs - Multivitamin, thiamine, and folic acid daily - OOB with assistance (2) Acute renal failure (ARF) Status: Acute Plan: Creatinine of 2.74 on admission (baseline 0.4 per chart review) - Discontinue Reynolds, monitor intake and output - Plan as above (3) Ascites due to alcoholic cirrhosis Status: Acute Plan: Patient diagnosed with alcoholic cirrhosis presenting with increased abdominal distension due to ascites - Plan as above (4) UTI (urinary tract infection) Status: Acute Plan: Urine culture growing Klebsiella pneumoniae > 100,000 cfus Continue Rocephin 1 gm IV q24h Urine appearing clear today in Reynolds bag Discontinue Reynolds (5) No contraindication to deep vein thrombosis (DVT) prophylaxis Status: Acute Plan: Continue heparin 5000 units subq q12h schedule to begin this evening (6) Nutrition, metabolism, and development symptoms Status: Acute Plan: Fluids: none Electrolytes: continue to monitor Renal diet DVT PPX: Heparin Problem Qualifiers (1) Acute renal failure (ARF): Qualified Code: N17.9 - Acute renal failure, unspecified acute renal failure type Gatito Bejarano MD R1 Aug 10, 2016 11:25
[2016-08-10] MEDS: SODIUM CHLORIDE 0.9% FLUSH 5 ML FLUSH FLUSH PRN (13:28)
[2016-08-10] MEDS ORDERED: LACT10SO PO (16:11)
--- NOTE | 2016-08-10 16:11 | HHI.DCPOC ---
Discharge Care Plan Diagnosis: (1) Hepatorenal syndrome (2) Acute renal failure (ARF) (3) Ascites due to alcoholic cirrhosis (4) UTI (urinary tract infection) Goals to Promote Your Health * To prevent worsening of your condition and complications * To maintain your health at the optimal level Directions to Meet Your Goals Take your medications as prescribed Follow your dietary instruction Follow activity as directed Keep your appointments as scheduled Take your immunizations and boosters as scheduled If your symptoms worsen call your PCP, if no PCP go to Urgent Care Center or Emergency Room Smoking is Dangerous to Your Health. Avoid second hand smoke Call the 24-hour hour crisis hotline for domestic abuse at Mihaela Madrid MD R2 Aug 10, 2016 16:11
[2016-08-10] MEDS: cefTRIAXone INJ 1,000 MG in SODIUM CHLORIDE 0.9% INJ 100 ML IV SCH (17:04)
[2016-08-11 03:47] VITALS: BP 109/55; PULSE 87; RESP 18; TEMP 97.6; O2SAT 95
[2016-08-11 07:16] VITALS: BP 97/55; PULSE 88; RESP 18; TEMP 98.2; O2SAT 98
[2016-08-11 07:47] LABS: HEMATOCRIT 29.3 % (35.0-46.0); MEAN CELL VOLUME 98.5 FL (80.0-100.0); MEAN CORPUSCULAR HEMOGLOBIN 33.8 PG (27.0-34.0); MEAN CORPUSCULAR HGB CONC 34.3 % (32.0-36.0); PLATELET COUNT 98 TH/MM3 (150-450); RED BLOOD COUNT 2.98 MIL/MM3 (4.00-5.30); RED CELL DISTRIBUTION WIDTH 15.6 % (11.6-17.2); WHITE BLOOD COUNT 6.9 TH/MM3 (4.0-11.0)
[2016-08-11 07:53] LABS: HEMO FLAGS AUTO DIFF
[2016-08-11] MEDS: SODIUM CHLORIDE 0.9% FLUSH 5 ML FLUSH FLUSH SCH ×2 (08:10→20:39)
[2016-08-11] MEDS: LACTULOSE SYRUP 20 GM/30 ML CUP PO SCH (08:11)
[2016-08-11] MEDS: MULTIVITAMIN TAB PO SCH (08:11)
[2016-08-11] MEDS: FOLIC ACID 1 MG TAB PO SCH (08:11)
[2016-08-11] MEDS: THIAMINE HCL 100 MG TAB PO SCH (08:11)
[2016-08-11 08:13] LABS: BICARBONATE 18.8 MEQ/L (21.0-32.0); CALCIUM-PROTEIN CORRECTED 8.5 MG/DL (8.5-10.1); POTASSIUM 3.3 MEQ/L (3.5-5.1); TOTAL BILIRUBIN ADULT 1.3 MG/DL (0.2-1.0)
[2016-08-11] MEDS ORDERED: HEPARIN SODIUM - SQ 10,000 UNITS/ML VIAL SQ SCH (09:00)
--- NOTE | 2016-08-11 09:13 | PD.CONS ---
HPI History of Present Illness This is a 60 year old female patient who was told that she had liver cirrhosis a few weeks ago, when she came in for worsening abdominal distention and found to have ascites which required a paracentesis. She reports that she was told this was related to ETOH, but has never actually seen a GI physician and has never had any workup for her cirrhosis. She reports that she was drinking 4 beers per day, but stopped in May. She was hospitalized in [place], [place] for abdominal pain back in May, but states her liver cirrhosis was not mentioned at that time. She does not have a primary care physician that she follows with. She states that her abdomen started swelling a few months ago, but got real bad this month to the point that it was causing her abdominal discomfort, described as pressure that radiates to her side and back. She had a paracentesis on 08/09 and reports that this helped her pain. She denies any fever or chills, nausea, vomiting. She does have intermittent constipation and has been taking Ex-Lax at home. She states that this is better now. She has had some black stools at times, but then states she is unsure if it is just dark brown or black. She has not had any Pepto-Bismol. She has been taking Aleve and Ibuprofen for her abdominal pain. She is unable to quantify the amount, although she states she has been "eating as much as I could to get rid of the pain." She reports that her weight is usually 115 and she is currently 114.4. (Nelly Estes) [facility] Past Medical History Denies Past Surgical History Denies (Nelly Estes) Coded Allergies: No Known Allergies (Unverified , 08/08/16) Medications Allergies Coded Allergies Type Severity Reaction Last Updated Verified No Known Allergies 08/08/16 No Active Scripts Medications Dose Route/Sig Days Date Category Aleve and ibuprofen Family History Brother had liver disease/cirrhosis, he did drink ETOH Does not know any other family history Social History She smokes 3-4 cigarettes a day for many years Was drinking 4 beers per day, quit in May No illicit drugs. (Nelly Estes) Review of Systems Constitutional: COMPLAINS OF: Fatigue, DENIES: Fever, Chills Respiratory: DENIES: Cough Cardiovascular: COMPLAINS OF: Lower Extremity Edema, DENIES: Chest pain Gastrointestinal: COMPLAINS OF: Abdominal pain, Constipation, Swelling of Abdomen, DENIES: Black stools, Bloody stools, Diarrhea, Nausea, Vomiting Integumentary: DENIES: Abnormal pigmentation, Rash, Jaundice Hematologic/lymphatic: COMPLAINS OF: Bruising Neurologic: DENIES: Headache Psychiatric: DENIES: Confusion (Nelly Estes) GI Exam Vitals I&O Vital Signs Date Time Temp Pulse Resp B/P Pulse Ox O2 Delivery O2 Flow Rate FiO2 08/11/16 07:16 98.2 88 18 97/55 98 08/11/16 03:47 97.6 87 18 109/55 95 08/10/16 23:48 97.0 84 16 95/58 99 08/10/16 20:30 90/48 08/10/16 19:26 97.3 60 18 86/45 96 08/10/16 17:52 18 08/10/16 15:41 98.5 92 18 102/53 97 08/10/16 11:37 98.4 84 18 94/62 98 I/O 08/10/16 08/10/16 08/10/16 08/11/16 08/11/16 08/11/16 07:00 15:00 23:00 07:00 15:00 23:00 Output Total 350 ml 175 ml 500 ml Balance -350 ml -175 ml -500 ml Output Urine Total 350 ml 175 ml 500 ml # Voids 1 # Bowel Movements 1 Imaging Last Impressions Renal Ultrasound 08/09/16 0000 Signed Impressions: Service Date/Time: Tuesday, August 09, 2016 11:53 - CONCLUSION: 1. Normal appearance the kidneys. 2. Reynolds catheter in place. 3. Mild ascites seen. Jaden Simpson MD Cyst Biopsy Asp-Paracentesis US 08/09/16 0000 Signed Impressions: Service Date/Time: Tuesday, August 09, 2016 09:15 - CONCLUSION: Uncomplicated ultrasound guided paracentesis. Yaakov Salomon MD Chest X-Ray 08/08/16 1650 Signed Impressions: Service Date/Time: Monday, August 08, 2016 17:03 - CONCLUSION: Unaerated otherwise negative. Hung Mendoza MD FACR Laboratory Test 08/11/16 08/11/16 07:20 07:30 Sodium Level 127 MEQ/L Potassium Level 3.3 MEQ/L Chloride Level 96 MEQ/L Carbon Dioxide Level 18.8 MEQ/L Anion Gap 12 MEQ/L Blood Urea Nitrogen 48 MG/DL Creatinine 2.35 MG/DL Estimat Glomerular Filtration 21 ML/MIN Rate Random Glucose 124 MG/DL Calcium Level 7.4 MG/DL Protein Corrected Calcium 8.5 MG/DL Total Bilirubin 1.3 MG/DL Aspartate Amino Transf 20 U/L (AST/SGOT) Alanine Aminotransferase 10 U/L (ALT/SGPT) Alkaline Phosphatase 132 U/L Total Protein 5.1 GM/DL Albumin 2.9 GM/DL White Blood Count 6.9 TH/MM3 Red Blood Count 2.98 MIL/MM3 Hemoglobin 10.1 GM/DL Hematocrit 29.3 % Mean Corpuscular Volume 98.5 FL Mean Corpuscular Hemoglobin 33.8 PG Mean Corpuscular Hemoglobin 34.3 % Concent Red Cell Distribution Width 15.6 % Platelet Count 98 TH/MM3 Mean Platelet Volume 8.7 FL Neutrophils (%) (Auto) % Lymphocytes (%) (Auto) % Monocytes (%) (Auto) % Eosinophils (%) (Auto) % Basophils (%) (Auto) % Neutrophils # (Auto) TH/MM3 Lymphocytes # (Auto) TH/MM3 Monocytes # (Auto) TH/MM3 Eosinophils # (Auto) TH/MM3 Basophils # (Auto) TH/MM3 CBC Comment AUTO DIFF Date/Time Procedure Status Source Growth 08/08/16 19:00 Urine Culture - Final Complete Urine Random Urine Klebsiella Pneumoniae Physical Examination HEENT: Normocephalic; atraumatic; no jaundice. CHEST: CTA CARDIAC: RRR ABDOMEN: Soft, distended with ascites, mild diffuse tenderness; hepatosplenomegaly; bowel sounds are present in all four quadrants. EXTREMITIES: No clubbing, cyanosis, or edema. SKIN: Normal; no rash; no jaundice. SOLVENT RECOVERER: No focal deficits; alert and oriented times three. (Nelly Estes) Assessment and Plan Plan ASSESSMENT: - Liver cirrhosis, new diagnosis. Pt has hx of drinking 4 beers per day, but stopped in May and has never had any liver workup. She denies Any history of hepatitis. She does report that her brother has liver cirrhosis (he does drink ETOH). Meld score 44. She needs liver workup And will need referral to tertiary as outpatient for liver transplant evaluation. She will need to be alcohol free 6 months prior to consideration for transplant - New onset ascites. Status post paracentesis (08/09/16). If she has another paracentesis, she needs to have a cell count, fluid sent for C&S, Cytology for new onset ascites. Albumin, Ceftriaxone. - Melena. Patient reports that she's had black stools for quite some time. She denies any history of known varices or peptic ulcer disease but has never had an EGD. Her hemoglobin has been trending down from 13.4-10.1/29.3 today. Of note she takes ibuprofen/Aleve at home. She is unable to quantify the amount but states that she eats something like candy. Will add PPI and schedule for an EGD with possible band ligation in the am. Recommend holding heparin. - Anemia secondary to acute blood loss. H&H 10.29.3. EGD in a.m. - Coagulopathy/thrombocytopenia. Plt 98,000, PT 12.9, INR 1.2. - Acute renal failure, likely hepatorenal. Per nephrology - Hyponatremia, hypokalemia. Per primary - Hepatic encephalopathy. Ammonia is 55. Patient is alert and oriented however she does have difficulty concentrating. Increase lactulose to 30 mg twice a day PLAN: - Plan for EGD with possible band ligation in a.m. - Obtain consents - 2 g sodium diet - Nothing by mouth after midnight - Recommend holding heparin - Add Protonix 40 mg IV twice a day - Add lactulose 30 L by mouth twice a day - Hepatitis profile - AFP level - DENISE, ASMA, AMA - Ferritin, iron saturation - Ceruloplasmin, Alpha 1 Antitrypsin - CBC, CMP, PT/INR in am - Continue albumin - Defer all diuretics to renal - Complete alcohol cessation - Patient will need referral to tertiary as outpatient for liver transplant evaluation - Supportive care - If repeat paracentesis, make sure fluid is sent for cell count, cytology, and C/S with gram stain - Further recommendations to follow based on results of above - Pt seen and examined by Dr. Serna and myself and this note is written on his behalf (Nelly Estes) Physician Comments Seen and examined with Ms. Meera JORGENSEN, liver butler ordered. Egd planned for tomorrow. ETOH cessation discussed with pt. Will follow, thank you (Loi Serna MD) Nelly Estes Aug 11, 2016 09:13 Loi Serna MD Aug 11, 2016 16:30
[2016-08-11 09:59] LABS: EOSINOPHILS 1 % (0-4); NEUTROPHIL # MANUAL DIFF 5.6 TH/MM3 (1.8-7.7); POLYS (SEG NEUTROPHILS) 81 % (16-70); SCAN/DIFF FINAL DIFF MANUAL; WBC DIFF SAMPLE 100
[2016-08-11 10:00] LABS: PLATELET ESTIMATE SMEAR LOW (NORMAL); PLATELET MORPHOLOGY NORMAL (NORMAL)
--- NOTE | 2016-08-11 10:53 | HHI.FPPN ---
Subjective Remarks No acute events overnight. Vital signs continues to low BP. Patient is otherwise stable and has no complaints. She has been up walking around in the room without issues. She does feel like the fluid is coming back and her abdomen but is better than when she first presented. She is otherwise eating well, having a normal bowel movement and urinating without issues. (Mihaela Padilla MD R2) Objective Vitals Vital Signs Date Time Temp Pulse Resp B/P Pulse Ox O2 Delivery O2 Flow Rate FiO2 08/11/16 07:16 98.2 88 18 97/55 98 08/11/16 03:47 97.6 87 18 109/55 95 08/10/16 23:48 97.0 84 16 95/58 99 08/10/16 20:30 90/48 08/10/16 19:26 97.3 60 18 86/45 96 08/10/16 17:52 18 08/10/16 15:41 98.5 92 18 102/53 97 08/10/16 11:37 98.4 84 18 94/62 98 I/O 08/10/16 08/10/16 08/10/16 08/11/16 08/11/16 08/11/16 07:00 15:00 23:00 07:00 15:00 23:00 Output Total 350 ml 175 ml 500 ml Balance -350 ml -175 ml -500 ml Output Urine Total 350 ml 175 ml 500 ml # Voids 1 # Bowel Movements 1 (Mihaela Madrid MD R2) Result Diagram: 08/11/16 0730 08/11/16 0720 Objective Remarks GENERAL: Lying in bed in NAD SKIN: Warm and dry. CARDIOVASCULAR: RRR with no MGR. RESPIRATORY: Clear to auscultation bilaterally. Good air movement.. No increased work of breathing. GASTROINTESTINAL: Abdomen soft, nontender. No palpable masses. No rebound tenderness. NEUROLOGICAL: Awake and alert. Motor and sensory grossly within normal limits. Normal speech. (Mihaela Madrid MD R2) A/P Assessment and Plan 60 year old female with h/o cirrhosis presenting with abdominal discomfort and MERINO. Admitted with: Discharge Planning Pending clearance from GI sdw Dr. Ashley and Dr. Roman (Mihaela Madrid MD R2) Assessment and Plan 08/11/16 Attending note: Attending note: Patient seen and examined with the resident team. Case reviewed and discussed length with the resident team. I agree with the plan of care as discussed with me and documented in the resident note. (Christiano Roman MD) Problem List: (1) Hepatorenal syndrome Status: Acute Plan: Patient with alcoholic cirrhosis presenting with increased abdominal distension and dyspnea found to have creatinine of 2.74 (baseline previously was 0.4) likely causing hepatorenal syndrome - Consulted nephrology * albumin IV 25 gm IV q12h * okay to discharge with follow up in 2wks as outpatient - Monitor strict I/Os Procedure: Abdominal paracentesis removed 55559 cc 08/09. Fluid analysis consistent with transudate, likely etiology is cirrhosis (2) Ascites due to alcoholic cirrhosis Status: Acute Plan: Patient diagnosed with alcoholic cirrhosis presenting with increased abdominal distension due to ascites -Hepatitis profile ordered GI consulted: * If repeat paracentesis is performed, will need C&S plus cytology for new onset ascites * increased lactulose to 30mg BID * EGD in AM for possible band ligation * Liver work up ordered: AFP, DENISE, ASMA, AMA, ferritin, iron saturation, ceruloplasmin, alpha antitrpsin * Will need referral to tertiary as outpatient for liver transplant evaluation Called lab about specimen, specimens had been saved and they can be used for cell count, cytology and C&S (3) UTI (urinary tract infection) Status: Acute Plan: Urine culture growing Klebsiella pneumoniae, mendoza sensitive Continue Rocephin 1 gm IV q24h (4) Nutrition, metabolism, and development symptoms Status: Acute Plan: Fluids: none Electrolytes: continue to monitor Renal diet DVT PPX: SCDs, will refrain from chemical anticoagulation at this time (Mihaela Madrid MD R2) Mihaela Madrid MD R2 Aug 11, 2016 10:53 Christiano Roman MD Aug 11, 2016 23:22
[2016-08-11] MEDS ORDERED: POTASSIUM CHLORIDE 10 MEQ CAP PO ONE (11:00)
[2016-08-11 11:07] VITALS: BP 99/49; PULSE 81; RESP 18; TEMP 98; O2SAT 99
[2016-08-11] MEDS: PANTOPRAZOLE SODIUM 40 MG VIAL IV PUSH SCH ×2 (11:22→22:16)
[2016-08-11] MEDS: SODIUM CHLORIDE 0.9% FLUSH 5 ML FLUSH FLUSH PRN (11:23)
[2016-08-11 12:08] VITALS: BP_SYST 102; BP_SYST 92; BP_SYST 99; BP_DIAS 47; BP_DIAS 51; PULSE 83
[2016-08-11 12:27] LABS: FERRITIN 215 NG/ML (8-252); TRANSFERRIN IRON PROFILE 55 MG/DL (200-360)
[2016-08-11] MEDS: ALBUMIN HUMAN 25% 25 GM/100 ML BAGP IV SCH (14:01)
[2016-08-11 15:25] VITALS: BP 91/52; PULSE 93; RESP 18; TEMP 98.2; O2SAT 100
[2016-08-11] MEDS: cefTRIAXone INJ 1,000 MG in SODIUM CHLORIDE 0.9% INJ 100 ML IV SCH (16:39)
--- NOTE | 2016-08-11 18:05 | HHI.NPPN ---
Subjective History of Present Illness 60 year old with Ascites, ARF, Cirrhosis UTI Review of Systems General Constitutional: Fatigue Objective Data Data 08/10/16 08/11/16 19:00 07:00 Output Total 175 ml Balance -175 ml Output Urine Total 175 ml # Voids 1 # Bowel Movements 1 Vital Signs Date Time Temp Pulse Resp B/P Pulse Ox O2 Delivery O2 Flow Rate FiO2 08/11/16 15:25 98.2 93 18 91/52 100 08/11/16 12:08 83 92/47 99/51 102/51 08/11/16 11:07 98.0 81 18 99/49 99 08/11/16 07:16 98.2 88 18 97/55 98 08/11/16 03:47 97.6 87 18 109/55 95 08/10/16 23:48 97.0 84 16 95/58 99 08/10/16 20:30 90/48 08/10/16 19:26 97.3 60 18 86/45 96 -: 08/11/16 0730 08/11/16 0720 Physical Exam General Appearance: Pale Neck Neck Exam: Neck Supple Pulmonary Resp Exam: Clear Bilaterally Cardiology CV Exam: Regular, Normal Sinus Rhythm Gastrointestinal/Abdomen GI Exam: Soft, Distended Extremeties Extremities Exam: No Edema Neurologic Neuro Exam: Alert Assessment/Plan Problem List: (1) Acute renal failure (ARF) Plan: The RUSTY improved pre renal factors not hepatorenal syndrome now passing urine UTI treated Klebsiella (2) Ascites due to alcoholic cirrhosis Plan: Continue to monitor (3) UTI (urinary tract infection) Plan: On Ceftriaxone (4) Hyponatremia Plan: due to cirrhosis of liver Problem Qualifiers (1) Acute renal failure (ARF): Qualified Code: N17.9 - Acute renal failure, unspecified acute renal failure type Sandro Larios MD Aug 11, 2016 18:05
[2016-08-11 20:00] VITALS: BP 97/64; PULSE 84; RESP 17; TEMP 96.6; O2SAT 100
[2016-08-11] MEDS ORDERED: LACTULOSE SYRUP 20 GM/30 ML CUP PO SCH (21:00)
[2016-08-12] VITALS (8 sets, daily range): BP systolic 91–100; BP diastolic 46–59; PULSE 77–83; RESP 16–19; TEMP 97–98.7; O2SAT 95–100
[2016-08-12] MEDS: ALBUMIN HUMAN 25% 25 GM/100 ML BAGP IV SCH ×2 (01:24→12:59)
[2016-08-12 05:32] LABS: INTERNATIONAL NORMALIZED RATIO 1.4 RATIO; PROTHROMBIN TIME - PATIENT 15.4 SEC (9.8-11.6)
[2016-08-12 05:47] LABS: AUTOMATED NEUTROPHIL # 2.7 TH/MM3 (1.8-7.7); BASOPHIL % 0.2 % (0.0-2.0); EOSINOPHIL # 0.2 TH/MM3 (0-0.4); EOSINOPHIL % 3.5 % (0.0-4.0); HEMATOCRIT 27.7 % (35.0-46.0); LYMPH % 22.4 % (9.0-44.0); LYMPHOCYTE # 1.1 TH/MM3 (1.0-4.8); MEAN CELL VOLUME 96.7 FL (80.0-100.0); MEAN CORPUSCULAR HGB CONC 35.1 % (32.0-36.0); MONO % 17.2 % (0.0-8.0); NEUT % 56.7 % (16.0-70.0); PLATELET COUNT 94 TH/MM3 (150-450); RED BLOOD COUNT 2.86 MIL/MM3 (4.00-5.30); RED CELL DISTRIBUTION WIDTH 15.7 % (11.6-17.2); WHITE BLOOD COUNT 4.8 TH/MM3 (4.0-11.0)
[2016-08-12 05:52] LABS: ALKALINE PHOSPHATASE 128 U/L (45-117); ALT (GPT) 12 U/L (10-53); ANION GAP 11 MEQ/L (5-15); AST (GOT) 26 U/L (15-37); BICARBONATE 20.1 MEQ/L (21.0-32.0); BLOOD UREA NITROGEN 41 MG/DL (7-18); CHLORIDE 99 MEQ/L (98-107); GLOMERULAR FILTRATION RATE 31 ML/MIN (>89); HEMO FLAGS AUTO DIFF; POTASSIUM 3.3 MEQ/L (3.5-5.1); SODIUM (NA) 130 MEQ/L (136-145); TOTAL BILIRUBIN ADULT 1.6 MG/DL (0.2-1.0)
--- NOTE | 2016-08-12 07:46 | HHI.FPPN ---
Subjective Remarks No acute events overnight. VS continue to show low BP but patient is otherwise asymptomatic. This morning she was complaining of bad diarrhea from the lactulose. Urinating without issue. Is complaining of increasing distention of her abdomen but it is not as bad as when she first presented. Objective Vitals Vital Signs Date Time Temp Pulse Resp B/P Pulse Ox O2 Delivery O2 Flow Rate FiO2 08/12/16 01:46 95 08/12/16 00:00 97.0 80 17 95/52 100 08/11/16 20:00 96.6 84 17 97/64 100 08/11/16 18:00 18 08/11/16 15:25 98.2 93 18 91/52 100 08/11/16 12:08 83 92/47 99/51 102/51 08/11/16 11:07 98.0 81 18 99/49 99 I/O 08/11/16 08/11/16 08/11/16 08/12/16 08/12/16 08/12/16 07:00 15:00 23:00 07:00 15:00 23:00 Intake Total 360 ml 240 ml 0 ml Output Total 500 ml 300 ml Balance -140 ml -60 ml 0 ml Intake Oral 360 ml 240 ml 0 ml IV Total 0 ml 0 ml Output Urine Total 500 ml 300 ml # Voids 1 1 3 # Bowel Movements 1 Result Diagram: 08/12/164 08/12/16423 Objective Remarks GENERAL: Lying in bed in NAD SKIN: Warm and dry. CARDIOVASCULAR: RRR with no MGR. RESPIRATORY: Left basilar fine crackles but good air movement bilaterally. No increased work of breathing. GASTROINTESTINAL: Abdomen soft, nontender. Slightly increased distention since yesterday. No rebound tenderness. NEUROLOGICAL: Awake and alert. Motor and sensory grossly within normal limits. Normal speech. A/P Assessment and Plan 60 year old female with h/o cirrhosis presenting with abdominal discomfort and MERINO. Admitted with: Discharge Planning Pending clearance from GI sdw Dr. Gabi hernandezw Dr. Roman Problem List: (1) Ascites due to alcoholic cirrhosis Status: Acute Plan: Patient diagnosed with alcoholic cirrhosis presenting with increased abdominal distension due to ascites. -MELD score 29, around 20% 3mth mortality risk -INR increasing to 1.4 with low platelets stable around 90s. -Hepatitis profile negative -Will likely need repeat paracentesis tomorrow. -Peritoneal fluid: suggestive of transudative. Cytology C&S pending GI consulted: * increased lactulose to 30mg BID * EGD in AM for possible band ligation * Liver work up ordered: AFP, DENISE, ASMA, AMA, ferritin, iron saturation, ceruloplasmin, alpha antitrpsin * Will need referral to tertiary as outpatient for liver transplant evaluation Medications: * decreased lactulose to 30mg daily, may need to decreased back down to 15ml daily (2) Acute renal failure (ARF) Status: Acute Plan: Patient with alcoholic cirrhosis presenting with increased abdominal distension and dyspnea found to have creatinine of 2.74 (baseline previously was 0.4). Initially thought to be due to hepatorenal syndrome but urine output has improved significantly as well as Cr. Could be related to ascites/third spacing. - Consulted nephrology: * albumin IV 25 gm IV q12h * do not think symptoms are due to hepatorenal syndrome - Monitor strict I/Os Procedure: Abdominal paracentesis removed [id number] cc 08/09. Fluid analysis consistent with transudate, likely etiology is cirrhosis (3) UTI (urinary tract infection) Status: Acute Plan: Urine culture growing Klebsiella pneumoniae, mendoza sensitive Continue Rocephin 1 gm IV q24h (08/09- * Will continue for a total of 5days for possible SBP even though suspicion is low at this time but pt is at high risk (4) Nutrition, metabolism, and development symptoms Status: Acute Plan: Fluids: none Electrolytes: continue to monitor Renal diet DVT PPX: SCDs, will refrain from chemical anticoagulation at this time Problem Qualifiers (1) Acute renal failure (ARF): Qualified Code: N17.9 - Acute renal failure, unspecified acute renal failure type Mihaela Madrid MD R2 Aug 12, 2016 07:46
[2016-08-12] MEDS: SODIUM CHLORIDE 0.9% FLUSH 5 ML FLUSH FLUSH SCH ×2 (07:59→21:02)
[2016-08-12] MEDS: LACTULOSE SYRUP 20 GM/30 ML CUP PO SCH (07:59)
[2016-08-12] MEDS: MULTIVITAMIN TAB PO SCH (07:59)
[2016-08-12] MEDS: THIAMINE HCL 100 MG TAB PO SCH (07:59)
[2016-08-12] MEDS: FOLIC ACID 1 MG TAB PO SCH (07:59)
[2016-08-12 09:11] LABS: BANDS 2 % (0-6); EOSINOPHILS 2 % (0-4); POLYS (SEG NEUTROPHILS) 60 % (16-70); WBC DIFF SAMPLE 100
[2016-08-12 09:12] LABS: PLATELET ESTIMATE SMEAR LOW (NORMAL); PLATELET MORPHOLOGY NORMAL (NORMAL); SCAN/DIFF FINAL DIFF MANUAL
[2016-08-12] MEDS: PANTOPRAZOLE SODIUM 40 MG VIAL IV PUSH SCH ×3 (11:00→22:21)
[2016-08-12] MEDS ORDERED: PROPOFOL 200 MG/20 ML AMP IV ONE (11:58)
--- NOTE | 2016-08-12 13:48 | HHI.NPPN ---
Subjective History of Present Illness 60 year old with Ascites, ARF, Cirrhosis UTI Review of Systems General Constitutional: Fatigue Objective Data Data 08/11/16 08/12/16 19:00 07:00 Intake Total 360 ml 240 ml Output Total 500 ml 300 ml Balance -140 ml -60 ml Intake Oral 360 ml 240 ml IV Total 0 ml Output Urine Total 500 ml 300 ml # Voids 1 3 Vital Signs Date Time Temp Pulse Resp B/P Pulse Ox O2 Delivery O2 Flow Rate FiO2 08/12/16 11:45 98.0 80 17 91/53 96 08/12/16 11:07 97.9 83 19 100/46 97 08/12/16 08:00 97.9 83 19 100/46 97 08/12/16 01:46 95 08/12/16 00:00 97.0 80 17 95/52 100 08/11/16 20:00 96.6 84 17 97/64 100 08/11/16 18:00 18 08/11/16 15:25 98.2 93 18 91/52 100 -: 08/12/16 0424 08/12/16 0424 Physical Exam General Appearance: Pale Neck Neck Exam: Neck Supple Pulmonary Resp Exam: Clear Bilaterally Cardiology CV Exam: Regular, Normal Sinus Rhythm Gastrointestinal/Abdomen GI Exam: Soft, Distended Extremeties Extremities Exam: No Edema Neurologic Neuro Exam: Alert Assessment/Plan Problem List: (1) Acute renal failure (ARF) Plan: The RUSTY improved cr 1.7 k low replace pre renal factors not hepatorenal syndrome now passing urine UTI treated Klebsiella (2) Ascites due to alcoholic cirrhosis Plan: Continue to monitor (3) UTI (urinary tract infection) Plan: On Ceftriaxone (4) Hyponatremia Plan: due to cirrhosis of liver Problem Qualifiers (1) Acute renal failure (ARF): Qualified Code: N17.9 - Acute renal failure, unspecified acute renal failure type Sandro Larios MD Aug 12, 2016 13:48
[2016-08-12] MEDS: cefTRIAXone INJ 1,000 MG in SODIUM CHLORIDE 0.9% INJ 100 ML IV SCH (15:31)
[2016-08-12] MEDS ORDERED: POTASSIUM CHLORIDE 10 MEQ CAP PO ONE (21:00)
[2016-08-13] VITALS: BP 94/49; PULSE 90; RESP 18; TEMP 97.6; O2SAT 100
[2016-08-13] MEDS: ALBUMIN HUMAN 25% 25 GM/100 ML BAGP IV SCH ×2 (01:48→11:30)
[2016-08-13 05:49] LABS: ANION GAP 10 MEQ/L (5-15); AST (GOT) 35 U/L (15-37); BICARBONATE 22.5 MEQ/L (21.0-32.0); BLOOD UREA NITROGEN 31 MG/DL (7-18); CHLORIDE 100 MEQ/L (98-107); GLOMERULAR FILTRATION RATE 44 ML/MIN (>89); POTASSIUM 3.7 MEQ/L (3.5-5.1); SODIUM (NA) 132 MEQ/L (136-145)
[2016-08-13 05:51] LABS: HEMATOCRIT 27.7 % (35.0-46.0); MEAN CELL VOLUME 97.6 FL (80.0-100.0); MEAN CORPUSCULAR HEMOGLOBIN 33.6 PG (27.0-34.0); MEAN CORPUSCULAR HGB CONC 34.4 % (32.0-36.0); PLATELET COUNT 106 TH/MM3 (150-450); RED BLOOD COUNT 2.84 MIL/MM3 (4.00-5.30); REVIEW FLAG FINAL; WHITE BLOOD COUNT 4.2 TH/MM3 (4.0-11.0)
[2016-08-13 05:52] LABS: ALKALINE PHOSPHATASE 118 U/L (45-117); ALT (GPT) 13 U/L (10-53)
[2016-08-13 08:00] VITALS: BP 96/54; PULSE 76; RESP 17; TEMP 96.6; O2SAT 100
[2016-08-13] MEDS: FOLIC ACID 1 MG TAB PO SCH (08:39)
[2016-08-13] MEDS: MULTIVITAMIN TAB PO SCH (08:39)
[2016-08-13] MEDS: THIAMINE HCL 100 MG TAB PO SCH (08:39)
[2016-08-13] MEDS: LACTULOSE SYRUP 20 GM/30 ML CUP PO SCH (08:40)
[2016-08-13] MEDS: SODIUM CHLORIDE 0.9% FLUSH 5 ML FLUSH FLUSH SCH ×2 (08:40→21:23)
[2016-08-13] MEDS: PANTOPRAZOLE SODIUM 40 MG VIAL IV PUSH SCH ×2 (11:29→21:23)
[2016-08-13 12:00] VITALS: BP 103/56; PULSE 83; RESP 18; TEMP 96.4; O2SAT 100
[2016-08-13] MEDS: POTASSIUM CHLORIDE 20 MEQ CONTROLLED RELEASE TAB PO SCH (12:42)
[2016-08-13] MEDS: FUROSEMIDE 40 MG TAB PO SCH (12:42)
--- NOTE | 2016-08-13 12:42 | HHI.FPPN ---
Subjective Remarks No events overnight. Afebrile, vitals are stable. BPs remaining 90s-100s/50s. Patient denies any fevers or chills, denies abdominal pain. Reports she has some abdominal discomfort due to her ascites. Denies any chest pain. Objective Vitals Vital Signs Date Time Temp Pulse Resp B/P Pulse Ox O2 Delivery O2 Flow Rate FiO2 08/13/16 12:00 96.4 83 18 103/56 100 08/13/16 08:15 16 08/13/16 08:00 96.6 76 17 96/54 100 08/13/16 00:00 97.6 90 18 94/49 100 08/12/16 20:00 97.9 77 18 100/59 100 08/12/16 16:03 98.7 79 19 96/51 99 08/12/16 15:50 97.9 83 16 100/46 97 I/O 08/12/16 08/12/16 08/12/16 08/13/16 08/13/16 08/13/16 07:00 15:00 23:00 07:00 15:00 23:00 Intake Total 0 ml 830 ml 480 ml 960 ml Output Total 200 ml 300 ml 1300 ml Balance 0 ml 630 ml 180 ml -340 ml Intake Oral 0 ml 480 ml 480 ml 960 ml IV Total 0 ml 250 ml 0 ml 0 ml Albumin 100 ml Output Urine Total 200 ml 300 ml 1300 ml # Voids 3 # Bowel Movements 0 Result Diagram: 08/13/16 0406 08/13/16 0406 Objective Remarks GENERAL: Lying in bed in NAD SKIN: Warm and dry. CARDIOVASCULAR: RRR with no MGR. RESPIRATORY: Left basilar fine crackles but good air movement bilaterally. No increased work of breathing. GASTROINTESTINAL: Abdomen soft, nontender. Increased distention compared to prior examination. No rebound tenderness. NEUROLOGICAL: Awake and alert. Motor and sensory grossly within normal limits. Normal speech. A/P Assessment and Plan 60 year old female with h/o cirrhosis presenting with abdominal discomfort and MERINO. Admitted with: Discharge Planning Pending clearance from GI Problem List: (1) Ascites due to alcoholic cirrhosis Status: Acute Plan: Patient diagnosed with alcoholic cirrhosis presenting with increased abdominal distension due to ascites. -MELD score 29, around 20% 3mth mortality risk -INR increased to 1.4 with low platelets stable around 90s. -Hepatitis profile negative -Peritoneal fluid: suggestive of transudative. Culture no growth GI consulted: * Lactulose 30mg daily * EGD showing gastritis, gastroparesis * Liver work up ordered: AFP, DENISE, ASMA, AMA, ferritin, iron saturation, ceruloplasmin, alpha antitrpsin * Will need referral to tertiary as outpatient for liver transplant evaluation (2) Acute renal failure (ARF) Status: Acute Plan: Patient with alcoholic cirrhosis presenting with increased abdominal distension and dyspnea found to have creatinine of 2.74 (baseline previously was 0.4). Initially thought to be due to hepatorenal syndrome but urine output has improved significantly as well as Creatinine. Could be related to ascites/ third spacing. - Consulted nephrology: * albumin IV 25 gm IV q12h * do not think symptoms are due to hepatorenal syndrome - Monitor strict I/Os Procedure: Abdominal paracentesis removed [id number] cc 08/09. Fluid analysis consistent with transudate, likely etiology is cirrhosis Creatinine continuing to improve, 1.24 today from 1.70 K+ within normal limits (3) UTI (urinary tract infection) Status: Acute Plan: Urine culture growing Klebsiella pneumoniae, mendoza sensitive Continue Rocephin 1 gm IV q24h (08/09- * Will continue for a total of 5days for possible SBP even though suspicion is low at this time but pt is at high risk (4) Nutrition, metabolism, and development symptoms Status: Acute Plan: Fluids: none Electrolytes: continue to monitor Renal diet DVT PPX: SCDs, will refrain from chemical anticoagulation at this time Problem Qualifiers (1) Acute renal failure (ARF): Qualified Code: N17.9 - Acute renal failure, unspecified acute renal failure type Gatito Bejarano MD R1 Aug 13, 2016 12:42
--- NOTE | 2016-08-13 15:32 | HHI.NPPN ---
Subjective History of Present Illness 60 year old with Ascites, ARF, Cirrhosis UTI Additional Remarks No acute complaints Review of Systems General Constitutional: Fatigue Objective Data Data 08/12/16 08/13/16 19:00 07:00 Intake Total 830 ml 1440 ml Output Total 200 ml 1600 ml Balance 630 ml -160 ml Intake Oral 480 ml 1440 ml IV Total 250 ml 0 ml Albumin 100 ml Output Urine Total 200 ml 1600 ml # Bowel Movements 0 Vital Signs Date Time Temp Pulse Resp B/P Pulse Ox O2 Delivery O2 Flow Rate FiO2 08/13/16 12:00 96.4 83 18 103/56 100 08/13/16 08:15 16 08/13/16 08:00 96.6 76 17 96/54 100 08/13/16 00:00 97.6 90 18 94/49 100 08/12/16 20:00 97.9 77 18 100/59 100 08/12/16 16:03 98.7 79 19 96/51 99 08/12/16 15:50 97.9 83 16 100/46 97 -: 08/13/16 0406 08/13/16 0406 Physical Exam General Appearance: Pale Neck Neck Exam: Neck Supple Pulmonary Resp Exam: Clear Bilaterally Cardiology CV Exam: Regular, Normal Sinus Rhythm Gastrointestinal/Abdomen GI Exam: Soft, Distended Extremeties Extremities Exam: No Edema Neurologic Neuro Exam: Alert Assessment/Plan Problem List: (1) Acute renal failure (ARF) Plan: The RUSTY improved: cr 1.7 -> 1.2 Good UOP, RUSTY apparently pre-renal and not hepatorenal syndrome now passing urine, on lasix 40mg PO daily and supplemental postassium PO daily UTI treated Klebsiella Renal function continues to improve. On albumin IV (2) Ascites due to alcoholic cirrhosis Plan: Continue to monitor - plan for referral for transplant evaluation (3) UTI (urinary tract infection) Plan: On Ceftriaxone (4) Hyponatremia Plan: due to cirrhosis of liver Problem Qualifiers (1) Acute renal failure (ARF): Qualified Code: N17.9 - Acute renal failure, unspecified acute renal failure type (2) UTI (urinary tract infection): Sylvester Pandya MD Aug 13, 2016 15:32
[2016-08-13 16:00] VITALS: BP 98/54; PULSE 87; RESP 17; TEMP 96; O2SAT 100
[2016-08-13] MEDS: cefTRIAXone INJ 1,000 MG in SODIUM CHLORIDE 0.9% INJ 100 ML IV SCH (17:30)
[2016-08-13 20:00] VITALS: BP 92/59; PULSE 90; RESP 20; TEMP 98.5; O2SAT 100
[2016-08-14] VITALS: BP 100/49; PULSE 86; RESP 20; TEMP 97.9; O2SAT 99
[2016-08-14] MEDS: ALBUMIN HUMAN 25% 25 GM/100 ML BAGP IV SCH ×2 (00:39→10:39)
[2016-08-14 04:53] LABS: POTASSIUM 3.6 MEQ/L (3.5-5.1)
[2016-08-14] MEDS: POTASSIUM CHLORIDE 20 MEQ CONTROLLED RELEASE TAB PO SCH (07:14)
[2016-08-14] MEDS: FOLIC ACID 1 MG TAB PO SCH (07:15)
[2016-08-14] MEDS: THIAMINE HCL 100 MG TAB PO SCH (07:15)
[2016-08-14] MEDS: LACTULOSE SYRUP 20 GM/30 ML CUP PO SCH (07:15)
[2016-08-14] MEDS: FUROSEMIDE 40 MG TAB PO SCH (07:15)
[2016-08-14] MEDS: MULTIVITAMIN TAB PO SCH (07:15)
[2016-08-14] MEDS: SODIUM CHLORIDE 0.9% FLUSH 5 ML FLUSH FLUSH SCH ×2 (07:20→23:47)
[2016-08-14 08:00] VITALS: BP 92/50; PULSE 81; RESP 16; TEMP 97.6; O2SAT 100
[2016-08-14] MEDS: PANTOPRAZOLE SODIUM 40 MG VIAL IV PUSH SCH ×2 (10:39→23:47)
[2016-08-14] MEDS ORDERED: IBUPROFEN 400 MG TAB PO SCH (11:15)
[2016-08-14 12:00] VITALS: BP 100/46; PULSE 80; RESP 17; TEMP 97.3; O2SAT 100
--- NOTE | 2016-08-14 13:27 | HHI.NPPN ---
Subjective History of Present Illness 60 year old with Ascites, ARF, Cirrhosis UTI Additional Remarks No acute complaints Review of Systems General Constitutional: Fatigue Objective Data Data 08/13/16 08/14/16 19:00 07:00 Intake Total 720 ml 1540 ml Output Total 600 ml 1200 ml Balance 120 ml 340 ml Intake Oral 720 ml 1440 ml IV Total 100 ml Output Urine Total 600 ml 1200 ml # Bowel Movements 1 Vital Signs Date Time Temp Pulse Resp B/P Pulse Ox O2 Delivery O2 Flow Rate FiO2 08/14/16 12:00 97.3 80 17 100/46 100 08/14/16 08:00 97.6 81 16 92/50 100 08/14/16 00:00 97.9 86 20 100/49 99 08/13/16 23:14 16 08/13/16 20:00 98.5 90 20 92/59 100 08/13/16 16:00 96.0 87 17 98/54 100 -: 08/13/16 0406 08/14/16 0425 Physical Exam General Appearance: Pale Neck Neck Exam: Neck Supple Pulmonary Resp Exam: Clear Bilaterally Cardiology CV Exam: Regular, Normal Sinus Rhythm Gastrointestinal/Abdomen GI Exam: Soft, Distended Extremeties Extremities Exam: No Edema Neurologic Neuro Exam: Alert Assessment/Plan Problem List: (1) Acute renal failure (ARF) Plan: The RUSTY improved: cr 1.7 -> 1.2 -> 1.1 Good UOP, RUSTY apparently pre-renal and not hepatorenal syndrome 1.8L UOP/ 24 hours, on lasix 40mg PO daily and supplemental potassium PO daily UTI treated Klebsiella Renal function continues to improve. On albumin IV RUSTY resolved, will sign off for now. If questions next week, may contact Dr. Larios (2) Ascites due to alcoholic cirrhosis Plan: Continue to monitor - plan for referral for transplant evaluation (3) UTI (urinary tract infection) Plan: On Ceftriaxone (4) Hyponatremia Plan: due to cirrhosis of liver Problem Qualifiers (1) Acute renal failure (ARF): Qualified Code: N17.9 - Acute renal failure, unspecified acute renal failure type (2) UTI (urinary tract infection): Sylvester Pandya MD Aug 14, 2016 13:27
[2016-08-14] MEDS: cefTRIAXone INJ 1,000 MG in SODIUM CHLORIDE 0.9% INJ 100 ML IV SCH (15:33)
--- NOTE | 2016-08-14 15:37 | HHI.FPPN ---
Subjective Remarks No acute events overnight. Vital signs unchanged. This morning patient reports that she continues to get diarrhea from the lactulose. She also complained of increasing abdominal distention but otherwise has no complaints. Objective Vitals Vital Signs Date Time Temp Pulse Resp B/P Pulse Ox O2 Delivery O2 Flow Rate FiO2 08/14/16 12:00 97.3 80 17 100/46 100 08/14/16 08:00 97.6 81 16 92/50 100 08/14/16 00:00 97.9 86 20 100/49 99 08/13/16 23:14 16 08/13/16 20:00 98.5 90 20 92/59 100 08/13/16 16:00 96.0 87 17 98/54 100 I/O 08/13/16 08/13/16 08/13/16 08/14/16 08/14/16 08/14/16 07:00 15:00 23:00 07:00 15:00 23:00 Intake Total 960 ml 720 ml 960 ml 580 ml 480 ml Output Total 1300 ml 600 ml 900 ml 300 ml 500 ml Balance -340 ml 120 ml 60 ml 280 ml -20 ml Intake Oral 960 ml 720 ml 960 ml 480 ml 480 ml IV Total 0 ml 0 ml 100 ml Output Urine Total 1300 ml 600 ml 900 ml 300 ml 500 ml # Bowel Movements 1 0 Result Diagram: 08/13/16 0406 08/14/16 0425 Objective Remarks GEN: Thin lady laying in bed. No acute distress. CV: Regular rate and rhythm without obvious murmurs LUNGS: Clear to auscultation bilaterally. Normal respiratory effort. No wheezes , rales, rhonchi. GI: Significant abdominal distention but nontender to palpation. EXT: No edema. No calf tenderness. NEURO/PSYCH: Awake, alert. Appropriate insight and judgment. Normal speech A/P Assessment and Plan 60 year old female with h/o cirrhosis presenting with abdominal discomfort and MERINO. Admitted with RUSTY and abdominal distention due to ascites Discharge Planning Tomorrow after paracentesis dw Dr. Roman Problem List: (1) Ascites due to alcoholic cirrhosis Status: Acute Plan: Patient diagnosed with alcoholic cirrhosis presenting with increased abdominal distension due to ascites. -MELD score 29, around 20% 3mth mortality risk -INR increased to 1.4 with low platelets stable around 90s. * Repeat coags tomorrow -Hepatitis profile negative -Peritoneal fluid: suggestive of transudative. Culture no growth * 13 L removed on 08/09 * Repeat paracentesis 08/15 GI consulted: * EGD showing gastritis, gastroparesis * Liver work up ordered: AFP, DENISE, ASMA, AMA, ferritin, iron saturation, ceruloplasmin, alpha antitrpsin: Negative * Will need referral to tertiary as outpatient for liver transplant evaluation * Cytology pending * Peritoneal fluid culture, negative (2) Acute renal failure (ARF) Status: Resolved Plan: Patient with alcoholic cirrhosis presenting with increased abdominal distension and dyspnea found to have creatinine of 2.74 (baseline previously was 0.4). Initially thought to be due to hepatorenal syndrome but urine output has improved significantly as well as Creatinine. Could be related to ascites/ third spacing. - Consulted nephrology: * albumin IV 25 gm IV q12h * do not think symptoms are due to hepatorenal syndrome * Signed off 08/14 - Monitor strict I/Os -Creatinine continuing to improve (3) UTI (urinary tract infection) Status: Resolved Plan: Urine culture growing Klebsiella pneumoniae, mendoza sensitive Continue Rocephin 1 gm IV q24h (08/09-08/14) * Continued for a total of 5days for possible SBP even though suspicion is low at this time but pt is at high risk (4) Nutrition, metabolism, and development symptoms Status: Acute Plan: Fluids: none Electrolytes: Unremarkable, continue to monitor Renal diet DVT PPX: SCDs, will refrain from chemical anticoagulation at this time Problem Qualifiers (1) Acute renal failure (ARF): Qualified Code: N17.9 - Acute renal failure, unspecified acute renal failure type (2) UTI (urinary tract infection): Mihaela Madrid MD R2 Aug 14, 2016 15:37
[2016-08-14 15:53] LABS: MITOCHONDRIAL ABS LESS THAN 20.0 U (())
[2016-08-14 16:00] VITALS: BP 89/46; PULSE 79; RESP 17; TEMP 96.2; O2SAT 100
[2016-08-15] VITALS: BP 90/52; PULSE 84; RESP 20; TEMP 97.8; O2SAT 100
[2016-08-15] MEDS: ALBUMIN HUMAN 25% 25 GM/100 ML BAGP IV SCH ×2 (00:44→11:26)
[2016-08-15 04:00] VITALS: BP 91/54; PULSE 83; RESP 20; TEMP 97.9; O2SAT 97
[2016-08-15 05:51] LABS: HEMATOCRIT 28.9 % (35.0-46.0); MEAN CELL VOLUME 97.9 FL (80.0-100.0); MEAN CORPUSCULAR HEMOGLOBIN 33.5 PG (27.0-34.0); MEAN CORPUSCULAR HGB CONC 34.3 % (32.0-36.0); PLATELET COUNT 142 TH/MM3 (150-450); RED BLOOD COUNT 2.95 MIL/MM3 (4.00-5.30); RED CELL DISTRIBUTION WIDTH 16.1 % (11.6-17.2); REVIEW FLAG FINAL; WHITE BLOOD COUNT 6.7 TH/MM3 (4.0-11.0)
[2016-08-15 06:00] LABS: INTERNATIONAL NORMALIZED RATIO 1.3 RATIO; PROTHROMBIN TIME - PATIENT 14.9 SEC (9.8-11.6)
[2016-08-15 06:17] LABS: BICARBONATE 22.7 MEQ/L (21.0-32.0); POTASSIUM 4.1 MEQ/L (3.5-5.1)
[2016-08-15 08:00] VITALS: BP 99/38; PULSE 88; RESP 18; TEMP 97.4; O2SAT 95
[2016-08-15] MEDS: MULTIVITAMIN TAB PO SCH (08:02)
[2016-08-15] MEDS: FUROSEMIDE 40 MG TAB PO SCH (08:02)
[2016-08-15] MEDS: FOLIC ACID 1 MG TAB PO SCH (08:02)
[2016-08-15] MEDS: THIAMINE HCL 100 MG TAB PO SCH (08:03)
[2016-08-15] MEDS: POTASSIUM CHLORIDE 20 MEQ CONTROLLED RELEASE TAB PO SCH (08:03)
[2016-08-15] MEDS: SODIUM CHLORIDE 0.9% FLUSH 5 ML FLUSH FLUSH SCH (08:03)
[2016-08-15] MEDS ORDERED: LACTULOSE SYRUP 20 GM/30 ML CUP PO SCH (09:00)
[2016-08-15] MEDS ORDERED: FURO1TAB60 PO (10:51)
[2016-08-15] MEDS ORDERED: POTA20TA5 PO (10:51)
[2016-08-15] MEDS: PANTOPRAZOLE SODIUM 40 MG VIAL IV PUSH SCH (11:26)
[2016-08-15 12:00] VITALS: BP 100/49; PULSE 85; RESP 20; TEMP 96.7; O2SAT 92
--- NOTE | 2016-08-15 12:03 | HHI.GIFU ---
Subjective Remarks Resting in bed. Going home today. Feeling well. No complaints (Nelly Estes) Objective Vitals I&O Vital Signs Date Time Temp Pulse Resp B/P Pulse Ox O2 Delivery O2 Flow Rate FiO2 08/15/16 08:00 97.4 88 18 99/38 95 08/15/16 04:00 97.9 83 20 91/54 97 08/15/16 02:22 16 08/15/16 00:00 97.8 84 20 90/52 100 08/14/16 16:00 96.2 79 17 89/46 100 08/14/16 12:00 97.3 80 17 100/46 100 I/O 08/14/16 08/14/16 08/14/16 08/15/16 08/15/16 08/15/16 07:00 15:00 23:00 07:00 15:00 23:00 Intake Total 580 ml 480 ml 240 ml 240 ml Output Total 300 ml 500 ml Balance 280 ml -20 ml 240 ml 240 ml Intake Oral 480 ml 480 ml 240 ml 240 ml IV Total 100 ml 0 ml Output Urine Total 300 ml 500 ml # Voids 1 2 # Bowel Movements 0 Laboratory Laboratory Tests Test 08/15/16 05:06 White Blood Count 6.7 Red Blood Count 2.95 Hemoglobin 9.9 Hematocrit 28.9 Mean Corpuscular Volume 97.9 Mean Corpuscular Hemoglobin 33.5 Mean Corpuscular Hemoglobin 34.3 Concent Red Cell Distribution Width 16.1 Platelet Count 142 Mean Platelet Volume 8.2 Prothrombin Time 14.9 Prothromb Time International 1.3 Ratio Sodium Level 135 Potassium Level 4.1 Chloride Level 103 Carbon Dioxide Level 22.7 Anion Gap 9 Blood Urea Nitrogen 19 Creatinine 1.01 Estimat Glomerular Filtration 56 Rate Random Glucose 88 Calcium Level 8.6 Imaging Last Impressions Renal Ultrasound 08/09/16 0000 Signed Impressions: Service Date/Time: Tuesday, August 09, 2016 11:53 - CONCLUSION: 1. Normal appearance the kidneys. 2. Reynolds catheter in place. 3. Mild ascites seen. Jaden Simpson MD Cyst Biopsy Asp-Paracentesis US 08/09/16 0000 Signed Impressions: Service Date/Time: Tuesday, August 09, 2016 09:15 - CONCLUSION: Uncomplicated ultrasound guided paracentesis. Yaakvo Salomon MD Chest X-Ray 08/08/16 1650 Signed Impressions: Service Date/Time: Monday, August 08, 2016 17:03 - CONCLUSION: Unaerated otherwise negative. Hung Mendoza MD FACR Physical Exam HEENT: Normocephalic; atraumatic; no jaundice. CHEST: CTA CARDIAC: RRR ABDOMEN: Soft, distended with ascites, mild diffuse tenderness; hepatosplenomegaly; bowel sounds are present in all four quadrants. EXTREMITIES: No clubbing, cyanosis, or edema. SKIN: Normal; no rash; no jaundice. ASSISTANT REAL ESTATE MANAGER: No focal deficits; alert and oriented times three. (Nelly Estes) Assessment and Plan Plan ASSESSMENT: - Liver cirrhosis, new diagnosis. Pt has hx of drinking 4 beers per day, but stopped in May and has never had any liver workup. She denies Any history of hepatitis. She does report that her brother has liver cirrhosis (he does drink ETOH). Meld score 44. Hepatitis negative, DENISE negative, AMA < 20.0, ASMA negative, Ceruloplasmin 16, Alpha 1 Antitrypsin 173. AFP 2.2. She will need to be alcohol free 6 months prior to consideration for transplant. Will refer as outpatient. - New onset ascites. Status post paracentesis (08/09/16). Lasix, Albumin - Melena. S/P EGD (08/12/16)---> portal hypertensive gastropathy in gastric fundus, erythematous gastritis in gastric antrum, retroflexion views without any abnormalities. - Anemia secondary to acute blood loss. H&H stable, 9.9/28.9. - Coagulopathy/thrombocytopenia. Stable. - Acute renal failure, improving. - Hepatic encephalopathy. Lactulose. A/Ox3. PLAN: - 2 g sodium diet- D/W patient, verbalizes understanding. - 2L fluid restriction- D/W patient, verbalizes understanding - No ETOH- D/W patient verbalizes understanding - Cont. Lasix - Cont. Lactulose - Cont. PPI - Okay to d/c home - FU RAJESH 2 weeks - Will need outpt referral to tertiary for liver transplant- once she has abstained from ETOH x 6 months - Pt seen and examined by Dr. Terry and myself and this note is written on her behalf (Nelly Estes) Nelly Estes Aug 15, 2016 12:03 Sharyn Terry MD Aug 15, 2016 19:28
--- NOTE | 2016-08-15 12:20 | HHI.FPPN ---
Subjective Remarks No events overnight. Remains afebrile. Vitals are stable. Denies any fevers or chills, or abdominal pain. She has been OOB within room to restroom and denies any dizziness or lightheadedness. Denies chest pain or shortness of breath. ( Gatito Bejarano MD R1) Objective Vitals Vital Signs Date Time Temp Pulse Resp B/P Pulse Ox O2 Delivery O2 Flow Rate FiO2 08/15/16 08:00 97.4 88 18 99/38 95 08/15/16 04:00 97.9 83 20 91/54 97 08/15/16 02:22 16 08/15/16 00:00 97.8 84 20 90/52 100 08/14/16 16:00 96.2 79 17 89/46 100 I/O 08/14/16 08/14/16 08/14/16 08/15/16 08/15/16 08/15/16 07:00 15:00 23:00 07:00 15:00 23:00 Intake Total 580 ml 480 ml 240 ml 240 ml Output Total 300 ml 500 ml Balance 280 ml -20 ml 240 ml 240 ml Intake Oral 480 ml 480 ml 240 ml 240 ml IV Total 100 ml 0 ml Output Urine Total 300 ml 500 ml # Voids 1 2 # Bowel Movements 0 (Gatito Bejarano MD R1) Result Diagram: 08/15/16 0506 08/15/16 0506 Objective Remarks GEN: Thin lady lying in bed. No acute distress. CV: Regular rate and rhythm without obvious murmurs LUNGS: Clear to auscultation bilaterally. Normal respiratory effort. No wheezes , rales, rhonchi. GI: Significant abdominal distention but nontender to palpation. EXT: No edema. No calf tenderness. NEURO/PSYCH: Awake, alert. Appropriate insight and judgment. Normal speech ( Gatito Bejarano MD R1) A/P Assessment and Plan 60 year old female with h/o cirrhosis presenting with abdominal discomfort and MERINO. Admitted with RUSTY and abdominal distention due to ascites Discharge Planning Stable for discharge today. Patient has met with CM and has been given a blue card and been counseled extensively to follow up with Dr. Vergara for continued care as an outpatient. She has a support system in place consisting of her mother and daughter. sdw Dr. Roman (Gatito Bejarano MD R1) Assessment and Plan Patient was seen and examined with resident team. Case was discussed and reviewed with the resident team. Physician agrees with plan of care is discussed with me and documented in the resident note. (Christiano Roman MD) Problem List: (1) Ascites due to alcoholic cirrhosis Status: Acute Plan: Patient diagnosed with alcoholic cirrhosis presenting with increased abdominal distension due to ascites. -MELD score 29, around 20% 3mth mortality risk -INR slightly improved to 1.3; plts up to 142,000 -Hepatitis profile negative -Peritoneal fluid: suggestive of transudative. Culture no growth * 13 L removed on 08/09 GI consulted: * EGD showing gastritis, gastroparesis * Liver work up ordered: AFP, DENISE, ASMA, AMA, ferritin, iron saturation, ceruloplasmin, alpha antitrpsin: Negative * Will need referral to tertiary as outpatient for liver transplant evaluation * Cytology pending * Peritoneal fluid culture, negative -Continue Lasix 40 mg po daily with KCl 20 mEq po daily (2) Acute renal failure (ARF) Status: Resolved Plan: Patient with alcoholic cirrhosis presenting with increased abdominal distension and dyspnea found to have creatinine of 2.74 (baseline previously was 0.4). Initially thought to be due to hepatorenal syndrome but urine output has improved significantly as well as Creatinine. Could be related to ascites/ third spacing. - Consulted nephrology: * albumin IV 25 gm IV q12h while inpatient * do not think symptoms are due to hepatorenal syndrome * Signed off 08/14 - Monitor strict I/Os -Creatinine continuing to improve, near normal today (3) UTI (urinary tract infection) Status: Resolved Plan: Urine culture growing Klebsiella pneumoniae, mendoza sensitive Continue Rocephin 1 gm IV q24h (08/09-08/14) * Continued for a total of 5days for possible SBP even though suspicion is low at this time but pt is at high risk (4) Nutrition, metabolism, and development symptoms Status: Acute Plan: Fluids: none Electrolytes: Unremarkable. Will obtain repeat BMP within 1 week as outpatient Renal high-protein diet DVT PPX: SCDs, will refrain from chemical anticoagulation at this time (Gatito Bejarano MD R1) Problem Qualifiers (1) Acute renal failure (ARF): Qualified Code: N17.9 - Acute renal failure, unspecified acute renal failure type (2) UTI (urinary tract infection): Gatito Bejarano MD R1 Aug 15, 2016 12:20 Christiano Roman MD Aug 16, 2016 13:32
--- NOTE | 2016-08-15 16:00 | HHI.DS ---
Discharge Summary Admission Date Aug 08, 2016 at 18:58 Discharge Date: Aug 15, 2016 Admitting Diagnosis ARF, ASCITES, HEPATORENAL? (1) Ascites due to alcoholic cirrhosis Diagnosis: Principal Plan: Patient diagnosed with alcoholic cirrhosis presenting with increased abdominal distension due to ascites. -MELD score 29, around 20% 3mth mortality risk -INR slightly improved to 1.3; plts up to 142,000 -Hepatitis profile negative -Peritoneal fluid: suggestive of transudative. Culture no growth * 13 L removed on 08/09 GI consulted: * EGD showing gastritis, gastroparesis * Liver work up ordered: AFP, DENISE, ASMA, AMA, ferritin, iron saturation, ceruloplasmin, alpha antitrpsin: Negative * Will need referral to tertiary as outpatient for liver transplant evaluation * Cytology pending * Peritoneal fluid culture, negative -Continue Lasix 40 mg po daily with KCl 20 mEq po daily (2) Acute renal failure (ARF) Diagnosis: Principal Plan: Patient with alcoholic cirrhosis presenting with increased abdominal distension and dyspnea found to have creatinine of 2.74 (baseline previously was 0.4). Initially thought to be due to hepatorenal syndrome but urine output has improved significantly as well as Creatinine. Could be related to ascites/ third spacing. - Consulted nephrology: * albumin IV 25 gm IV q12h while inpatient * do not think symptoms are due to hepatorenal syndrome * Signed off 08/14 - Monitor strict I/Os -Creatinine continuing to improve, near normal today (3) UTI (urinary tract infection) Diagnosis: Principal Plan: Urine culture growing Klebsiella pneumoniae, mendoza sensitive Continue Rocephin 1 gm IV q24h (08/09-08/14) * Continued for a total of 5days for possible SBP even though suspicion is low at this time but pt is at high risk (4) Nutrition, metabolism, and development symptoms Diagnosis: Secondary Plan: Fluids: none Electrolytes: Unremarkable. Will obtain repeat BMP within 1 week as outpatient Renal high-protein diet DVT PPX: SCDs, will refrain from chemical anticoagulation at this time Consultants Gastroenterology, nephrology Procedures Ultrasound guided paracentesis Brief History Ms. Parker is a 60 y/o F with a PMHx of cirrhosis presenting with ABD discomfort and dyspnea on exertion. She is accompanied by her son who assists with her interview. Patient was diagnosed with cirrhosis related to alcohol consumption in late 2015. She therapeutic paracentesis performed on 07/22/16 for abdominal discomfort due to ascites.Since that paracentesis her status did improve, however over the last week she began to notice her abdomen beginning to increase in size. She began to experience dyspnea on exertion approximately a week ago, however now due to the increased ascitic fluid is experiencing dyspnea at rest. Over this time from she also has experienced increased fatigue , balance issues, as well as decreased urination and bowel movements. She had a nontraumatic fall approximately 1 week ago due to loss of balance without injury. She reports that her baseline she urinates 3 times a day, but now only has trickles of urine. She states her last BM was 1 week ago and that it was nonbloody diarrhea. Of note patient has been taking Aleve up to 4 times per day to assist with pain due to increased abdominal distention. Otherwise she has no complaints and denies any fevers, chills, chest pain, nausea, vomiting, or calf tenderness. She reports that her last drink was approximately 2 months ago. CBC/BMP: 08/15/16 0506 08/15/16 0506 Significant Findings Laboratory Tests Test 08/13/16 08/14/16 08/15/16 04:06 04:25 05:06 Red Blood Count 2.84 MIL/MM3 2.95 MIL/MM3 (4.00-5.30) (4.00-5.30) Hemoglobin 9.5 GM/DL 9.9 GM/DL (11.6-15.3) (11.6-15.3) Hematocrit 27.7 % 28.9 % (35.0-46.0) (35.0-46.0) Platelet Count 106 TH/MM3 142 TH/MM3 (150-450) (150-450) Sodium Level 132 MEQ/L 135 MEQ/L (136-145) (136-145) Blood Urea Nitrogen 31 MG/DL (7-18) 26 MG/DL (7-18) 19 MG/DL (7-18) Creatinine 1.24 MG/DL 1.12 MG/DL 1.01 MG/DL (0.50-1.00) (0.50-1.00) (0.50-1.00) Estimat Glomerular Filtration 44 ML/MIN (>89) 50 ML/MIN (>89) 56 ML/MIN (>89) Rate Random Glucose 73 MG/DL (74-106) Total Bilirubin 2.0 MG/DL (0.2-1.0) Alkaline Phosphatase 118 U/L (45-117) Total Protein 5.9 GM/DL (6.4-8.2) Carbon Dioxide Level 20.0 MEQ/L (21.0-32.0) Calcium Level 8.3 MG/DL (8.5-10.1) Prothrombin Time 14.9 SEC (9.8-11.6) Imaging Renal US: normal appearance of the kidneys CXR: Underaerated, otherwise negative PE at Discharge GEN: Thin lady lying in bed. No acute distress. CV: Regular rate and rhythm without obvious murmurs LUNGS: Clear to auscultation bilaterally. Normal respiratory effort. No wheezes , rales, rhonchi. GI: Significant abdominal distention but nontender to palpation. EXT: No edema. No calf tenderness. NEURO/PSYCH: Awake, alert. Appropriate insight and judgment. Normal speech Hospital Course Patient underwent abdominal paracentesis, removing 13,000 mL of fluid. Gastroenterology was consulted given patient with new onset ascites, cirrhosis, and with acute renal failure. Hepatitis panel was negative. DENISE negative. Anti- smooth muscle antibody negative. Nephrology was consulted, deemed that patient did not have hepatorenal syndrome. She was given IV albumin to help with diuresis. Her blood pressure was able to tolerate diuresis with Lasix 40 mg po daily. Her creatinine did improve to near normal range by time of discharge. She remained afebrile and without abdominal pain or signs/concerns for SBP throughout hospitalization. She will be able to follow-up with Dr. Vergara in community clinic and follow up with gastroenterology and nephrology. Pt Condition on Discharge: Stable Discharge Disposition: Discharge Home Discharge Instructions DIET: Follow Instructions for: High Protein Diet Activities you can perform: Weight Bearing as Cheryl Follow up Referrals: Gastroenterology - 2 Weeks with Loi Serna MD GI/CRS Colonoscopy - 2 Weeks Nephrology - 2 Weeks with Sandro Larios MD PCP Follow-up - 1 Week with Dianne Vergara MD New Orders: BASIC METABOLIC PROF - 1 Week New Medications: Furosemide (Lasix) 40 Mg Tab 40 MG PO DAILY #30 Ref 1 TAB Lactulose Liq (Lactulose Liq) 10 Gm/15 Ml Soln 15 ML PO DAILY Days 30 ML Potassium Chloride Microencaps (Potassium Chloride Microencaps) 20 Meq Tab 20 MEQ PO DAILY #30 Ref 1 TAB Gatito Bejarano MD R1 Aug 15, 2016 16:00
== END 2016-08-15 15:44 | disposition home or self-care (01) | DRG 433 ==
LOC: NEPA 16:02 → NEDA 18:58 → NEDH 22:59 → NEPHCDU 08-09 01:28 → N07B 08-11 17:56
PROVIDERS: ADMIT Family Medicine; ATTEND Family Medicine
PROC: 0W9G3ZX Drainage of Peritoneal Cavity, Percutaneous Approach, Diagnostic (ICD-10-PCS; principal; 2016-08-09)
PROC: 0DB68ZX Excision of Stomach, Via Natural or Artificial Opening Endoscopic, Diagnostic (ICD-10-PCS; 2016-08-12)
DX: K70.31 Alcoholic cirrhosis of liver with ascites (principal); N17.9 Acute kidney failure, unspecified; D68.9 Coagulation defect, unspecified; K76.6 Portal hypertension; E87.1 Hypo-osmolality and hyponatremia; D62 Acute posthemorrhagic anemia; D69.6 Thrombocytopenia, unspecified; N39.0 Urinary tract infection, site not specified; K92.1 Melena; K72.90 Hepatic failure, unspecified without coma; F10.21 Alcohol dependence, in remission; E87.6 Hypokalemia; K31.89 Other diseases of stomach and duodenum; K29.70 Gastritis, unspecified, without bleeding; B96.1 Klebsiella pneumoniae [K. pneumoniae] as the cause of diseases classified elsewhere; F17.210 Nicotine dependence, cigarettes, uncomplicated
CPT/HCPCS: 49083; 71010; 76775; 80048; 80053; 80074; 80320; 80329; 81001; 82042; 82103; 82105; 82140; 82150; 82248; 82390; 82570; 82728; 82945; 83520; 83540; 83550; 83615; 83690; 83880; 84155; 84157; 84300; 85007; 85025; 85027; 85610; 85730; 86038; 86256; 87070; 87077; 87086; 87186; 87205; 88305; 88312; 89051; 93005; 96374; C1729; C9113; G0480; J0696; J1644; J1940; J2270; P9047

== ENCOUNTER 2016-09-09 07:56 | Day surgery (SDC) | payer MEDICAID, OTHER ==
[~2016-09-09 07:56] MED LIST: FURO1TAB60 PO; LACT10SO PO; POTA20TA5 PO
[2016-09-09 08:14] VITALS: BP 114/68; PULSE 82; RESP 16; TEMP 98; O2SAT 97
[2016-09-09] MEDS ORDERED: ALBUMIN HUMAN 25% 25 GM/100 ML BAGP IV ONE (08:30)
[2016-09-09 10:05] VITALS: BP 95/64; PULSE 81; RESP 16; TEMP 98.6; O2SAT 94
[2016-09-09 10:30] VITALS: BP 98/55; PULSE 87; RESP 16; O2SAT 96
--- NOTE | 2016-09-09 12:26 | RADRPT ---
EXAM DATE/TIME: 09/09/2016 08:20 CORRECTION Corrected on: September 15, 2016; added missing exam form information [facility] COMPARISON: US GUIDED ABD PARACENTESIS, August 09, 2016, 9:15. INDICATIONS : Ascites. MEDICAL HISTORY : Ascites. Dyspnea. Cirrhosis. ETOH. Muscle stiffness. SURGICAL HISTORY : Paracentesis. ENCOUNTER: Subsequent ACUITY: 2 weeks PAIN SCORE: 10/10 LOCATION: Right lower quadrant [place]UID: [place] [address] cc of clear, yellow fluid was removed. Fluid was discarded. Paracentesis was therapeutic only. Post procedure scanning reveals no hematoma or other complication. TECHNIQUE: 1. Ultrasound guidance for abdominal paracentesis. 2. Paracentesis. The risks, benefits, and alternatives to ultrasound guided paracentesis were explained to the patient in detail including the risk of bleeding and infection. Written and verbal informed consent was obt ained. With the patient on the ultrasound table, ultrasound imaging was used to select the most appropriate approach for paracentesis. Overlying skin was prepped and draped in the usual sterile fashion and wi th a local anesthetic, a dermatotomy was made with an 11 blade scalpel. A 6 [place] [id number] ca theter was introduced into the peritoneal cavity and fluid was collected. The patient tolerated the procedure well and left the ultrasound suite in stable condition. CONCLUSION: Uncomplicated ultrasound guided paracentesis. Patient received albumin per protocol. Hung Mendoza MD FACR on September 09, 2016 at 12:24 Board Certified Radiologist. This report was verified electronically. DR Riddle on September 15, 2016 at 13:51 Board Certified Radiologist. This report was verified electronically.
== END 2016-09-09 11:30 | disposition home or self-care (01) ==
LOC: HRAD 07:56 → HRIP 07:57 → HRAD 11:30
PROVIDERS: ATTEND Hospitalist
DX: R18.8 Other ascites (principal)
CPT/HCPCS: 49083; C1729; P9047

== ENCOUNTER → 2016-10-10 | Outpatient (CLI) | payer MEDICAID ==
[2016-10-10 11:33] LABS: HEMATOCRIT 37.5 % (35.0-46.0); MEAN CELL VOLUME 96.6 FL (80.0-100.0); MEAN CORPUSCULAR HEMOGLOBIN 32.8 PG (27.0-34.0); PLATELET COUNT 227 TH/MM3 (150-450); RED BLOOD COUNT 3.88 MIL/MM3 (4.00-5.30); RED CELL DISTRIBUTION WIDTH 16.4 % (11.6-17.2); REVIEW FLAG FINAL; WHITE BLOOD COUNT 6.4 TH/MM3 (4.0-11.0)
[2016-10-10 11:43] LABS: APTT (PATIENT) 28.8 SEC (24.3-30.1); INTERNATIONAL NORMALIZED RATIO 1.1 RATIO; PROTHROMBIN TIME - PATIENT 12.6 SEC (9.8-11.6)
== END ==
LOC: CLAB 11:13
DX: D18.03 Hemangioma of intra-abdominal structures (principal)
CPT/HCPCS: 36415; 85027; 85610; 85730

== ENCOUNTER 2016-10-11 09:46 | Day surgery (SDC) | payer MEDICAID ==
[2016-10-11 10:34] VITALS: BP 120/74; PULSE 75; RESP 18; TEMP 96.8; O2SAT 100
[2016-10-11] MEDS ORDERED: LIDOCAINE HCL 1% PF 30 ML VIAL ONE (11:23)
[2016-10-11 12:40] VITALS: BP 95/53; PULSE 83; RESP 16; TEMP 98.5; O2SAT 100
[2016-10-11] MEDS ORDERED: ALBUMIN HUMAN 25% 75 GM IV ONE (13:00)
[2016-10-11 13:25] VITALS: BP 118/62; PULSE 76; RESP 16; O2SAT 100
--- NOTE | 2016-10-11 13:26 | RADRPT ---
EXAM DATE/TIME: 10/11/2016 10:29 [facility] COMPARISON: US GUIDED ABD PARACENTESIS, September 09, 2016, 8:20. INDICATIONS : Ascites. MEDICAL HISTORY : Ascites. Dyspnea. Cirrhosis. ETOH. Muscle stiffness. SURGICAL HISTORY : Paracentesis. ENCOUNTER: [facility]ela ACUITY: 1 month PAIN SCORE: 4/10 LOCATION: Right lower quadrant [place]UID: [place] [address] cc of clear, yellow fluid was removed. Fluid was discarded. Paracentesis was therapeutic only. Post procedure scanning reveals no hematoma or other complication. TECHNIQUE: 1. Ultrasound guidance for abdominal paracentesis. 2. Paracentesis. The risks, benefits, and alternatives to ultrasound guided paracentesis were explained to the patient in detail including the risk of bleeding and infection. Written and verbal informed consent was obt ained. With the patient on the ultrasound table, ultrasound imaging was used to select the most appropriate approach for paracentesis. Overlying skin was prepped and draped in the usual sterile fashion and wi th a local anesthetic, a dermatotomy was made with an 11 blade scalpel. A 6 Malay [id number] ca theter was introduced into the peritoneal cavity and fluid was collected. The patient tolerated the procedure well and left the ultrasound suite in stable condition. CONCLUSION: Uncomplicated ultrasound guided paracentesis. Akshat Xiong MD on October 11, 2016 at 13:24 Board Certified Radiologist. This report was verified electronically.
== END 2016-10-11 13:30 | disposition home or self-care (01) ==
LOC: HRIP 09:46 → HRAD 09:46
DX: R18.8 Other ascites (principal)
CPT/HCPCS: 49083; 96365; C1729; P9047

== ENCOUNTER 2016-11-04 10:00 | Day surgery (SDC) | payer MEDICAID ==
[2016-11-04 12:10] VITALS: BP 101/58; PULSE 84; RESP 20; TEMP 98.3; O2SAT 100
--- NOTE | 2016-11-04 12:16 | RADRPT ---
EXAM DATE/TIME: 11/04/2016 10:41 [facility] COMPARISON: US GUIDED ABD PARACENTESIS, October 11, 2016, 10:29. INDICATIONS : Ascites. MEDICAL HISTORY : Cirrhosis. Ascites. Dyspnea. ETOH. SURGICAL HISTORY : Paracentesis. ENCOUNTER: Sequela ACUITY: 2 weeks PAIN SCORE: 1/10 LOCATION: Right lower quadrant FLUID: Total volume of 13,400 cc of clear, yellow fluid was removed. Fluid was discarded. Paracentesis was therapeutic only. Post procedure scanning reveals no hematoma or other complication. TECHNIQUE: 1. Ultrasound guidance for abdominal paracentesis. 2. Paracentesis. The risks, benefits, and alternatives to ultrasound guided paracentesis were explained to the patient in detail including the risk of bleeding and infection. Written and verbal informed consent was obt ained. With the patient on the ultrasound table, ultrasound imaging was used to select the most appropriate approach for paracentesis. Overlying skin was prepped and draped in the usual sterile fashion and wi th a local anesthetic, a dermatotomy was made with an 11 blade scalpel. A 6 Wolof Pah-S-drchuazv ca theter was introduced into the peritoneal cavity and fluid was collected. The patient tolerated the procedure well and left the ultrasound suite in stable condition. CONCLUSION: Uncomplicated ultrasound guided paracentesis. Jaden Lozoya MD on November 04, 2016 at 12:14 Board Certified Radiologist. This report was verified electronically.
[2016-11-04 12:25] VITALS: BP 100/58; PULSE 89; RESP 20; O2SAT 100
[2016-11-04 12:49] VITALS: BP 93/53; PULSE 85; RESP 18; O2SAT 100
[2016-11-04] MEDS ORDERED: ALBUMIN HUMAN 25% 75 GM IV ONE (13:00)
== END 2016-11-04 13:05 | disposition home or self-care (01) ==
LOC: HRAD 10:00 → HRIP 10:01 → HRAD 13:05
DX: R18.8 Other ascites (principal)
CPT/HCPCS: 49083; 96365; C1729

== ENCOUNTER 2016-11-24 07:09 | Day surgery (SDC) | payer MEDICAID ==
[2016-11-24 08:06] LABS: BASOPHIL % 0.6 % (0.0-2.0); EOSINOPHIL # 0.1 TH/MM3 (0-0.4); EOSINOPHIL % 3.3 % (0.0-4.0); HEMATOCRIT 34.2 % (35.0-46.0); HEMO FLAGS DIFF FINAL; LYMPH % 19.8 % (9.0-44.0); LYMPHOCYTE # 0.9 TH/MM3 (1.0-4.8); MEAN CELL VOLUME 92.8 FL (80.0-100.0); MEAN CORPUSCULAR HEMOGLOBIN 31.2 PG (27.0-34.0); MEAN CORPUSCULAR HGB CONC 33.6 % (32.0-36.0); MONO % 9.6 % (0.0-8.0); NEUT % 66.7 % (16.0-70.0); PLATELET COUNT 191 TH/MM3 (150-450); RED BLOOD COUNT 3.68 MIL/MM3 (4.00-5.30); RED CELL DISTRIBUTION WIDTH 16.8 % (11.6-17.2); WHITE BLOOD COUNT 4.4 TH/MM3 (4.0-11.0)
[2016-11-24 08:13] LABS: APTT (PATIENT) 28.8 SEC (24.3-30.1); PROTHROMBIN TIME - PATIENT 11.3 SEC (9.8-11.6)
[2016-11-24 08:57] VITALS: BP 108/65; PULSE 66; RESP 18; TEMP 97; O2SAT 94
[2016-11-24 11:11] VITALS: BP 95/52; PULSE 70; RESP 18; TEMP 98; O2SAT 95
[2016-11-24] MEDS ORDERED: ALBUMIN HUMAN 25% 75 GM IV ONE (11:15)
[2016-11-24 11:26] VITALS: BP 103/54; PULSE 73; RESP 17; O2SAT 97
--- NOTE | 2016-11-24 16:37 | RADRPT ---
EXAM DATE/TIME: 11/24/2016 09:02 [facility] COMPARISON: US GUIDED ABD PARACENTESIS, November 04, 2016, 10:41. INDICATIONS : Ascites. MEDICAL HISTORY : Cirrhosis. Ascites. Dyspnea. ETOH abuse. SURGICAL HISTORY : Paracentesis ENCOUNTER: Sequela ACUITY: 2 weeks PAIN SCORE: 0/10 LOCATION: Left lower quadrant [place]: [place] [address] cc of clear, yellow fluid was removed. Fluid was discarded. Paracentesis was therapeutic only. Post procedure scanning reveals no hematoma or other complication. TECHNIQUE: 1. Ultrasound guidance for abdominal paracentesis. 2. Paracentesis. The risks, benefits, and alternatives to ultrasound guided paracentesis were explained to the patient in detail including the risk of bleeding and infection. Written and verbal informed consent was obt ained. With the patient on the ultrasound table, ultrasound imaging was used to select the most appropriate approach for paracentesis. Overlying skin was prepped and draped in the usual sterile fashion and wi th a local anesthetic, a dermatotomy was made with an 11 blade scalpel. A 6 Angolan Kga-E-lytplsno ca theter was introduced into the peritoneal cavity and fluid was collected. The patient tolerated the procedure well and left the ultrasound suite in stable condition. CONCLUSION: Uncomplicated ultrasound guided paracentesis. Jaden Lozoya MD on November 24, 2016 at 16:35 Board Certified Radiologist. This report was verified electronically.
== END 2016-11-24 12:31 | disposition home or self-care (01) ==
LOC: HRAD 07:09 → HRIP 07:44 → HRAD 12:31
DX: R18.8 Other ascites (principal); K74.60 Unspecified cirrhosis of liver; F10.20 Alcohol dependence, uncomplicated; Z79.01 Long term (current) use of anticoagulants; Z01.810 Encounter for preprocedural cardiovascular examination; Z01.818 Encounter for other preprocedural examination
CPT/HCPCS: 36415; 49083; 85025; 85610; 85730; 96365; C1729; P9047; 96366

== ENCOUNTER 2016-12-12 07:25 | Day surgery (SDC) | payer MEDICAID ==
[2016-12-12 08:28] VITALS: BP 132/77; PULSE 71; RESP 14; TEMP 97.8; O2SAT 97
--- NOTE | 2016-12-12 10:19 | RADRPT ---
EXAM DATE/TIME: 12/12/2016 08:27 [facility] COMPARISON: US GUIDED ABD PARACENTESIS, November 24, 2016, 9:02. INDICATIONS : Ascites. MEDICAL HISTORY : Cirrhosis. Ascites. Dyspnea. ETOH abuse. SURGICAL HISTORY : Paracentesis. ENCOUNTER: Sequela ACUITY: 2 weeks PAIN SCORE: 1/10 LOCATION: Left lower quadrant FLUID: Total volume of 8000 cc of clear, yellow fluid was removed. Fluid was discarded. Paracentesis was therapeutic only. Post procedure scanning reveals no hematoma or other complication. TECHNIQUE: 1. Ultrasound guidance for abdominal paracentesis. 2. Paracentesis. The risks, benefits, and alternatives to ultrasound guided paracentesis were explained to the patient in detail including the risk of bleeding and infection. Written and verbal informed consent was obt ained. With the patient on the ultrasound table, ultrasound imaging was used to select the most appropriate approach for paracentesis. Overlying skin was prepped and draped in the usual sterile fashion and wi th a local anesthetic, a dermatotomy was made with an 11 blade scalpel. A 6 Spanish Wnc-U-yaisvedh ca theter was introduced into the peritoneal cavity and fluid was collected. The patient tolerated the procedure well and left the ultrasound suite in stable condition. CONCLUSION: Uncomplicated ultrasound guided paracentesis. Jaden Lozoya MD on December 12, 2016 at 10:17 Board Certified Radiologist. This report was verified electronically.
[2016-12-12 10:20] VITALS: BP 112/71; PULSE 75; RESP 18; TEMP 98.4; O2SAT 98
[2016-12-12 10:30] VITALS: BP 110/59; PULSE 83; RESP 18; O2SAT 98
[2016-12-12] MEDS ORDERED: ALBUMIN HUMAN 25% 50 GM IV ONE (10:30)
[2016-12-12 10:45] VITALS: BP 110/62; PULSE 78; RESP 18; O2SAT 98
== END 2016-12-12 11:15 | disposition home or self-care (01) ==
LOC: HRAD 07:25 → HRIP 07:26 → HRAD 11:15
DX: R18.8 Other ascites (principal)
CPT/HCPCS: 49083; 96365; C1729; P9047

== ENCOUNTER 2016-12-30 08:51 | Day surgery (SDC) | payer MEDICAID ==
[2016-12-30 08:59] LABS: AUTOMATED NEUTROPHIL # 3.3 TH/MM3 (1.8-7.7); BASOPHIL % 0.6 % (0.0-2.0); EOSINOPHIL # 0.1 TH/MM3 (0-0.4); EOSINOPHIL % 1.8 % (0.0-4.0); HEMATOCRIT 36.4 % (35.0-46.0); HEMO FLAGS DIFF FINAL; LYMPH % 20.9 % (9.0-44.0); LYMPHOCYTE # 1.1 TH/MM3 (1.0-4.8); MEAN CELL VOLUME 94.1 FL (80.0-100.0); MEAN CORPUSCULAR HEMOGLOBIN 32.6 PG (27.0-34.0); MEAN CORPUSCULAR HGB CONC 34.7 % (32.0-36.0); MONO % 12.5 % (0.0-8.0); NEUT % 64.2 % (16.0-70.0); PLATELET COUNT 157 TH/MM3 (150-450); RED BLOOD COUNT 3.87 MIL/MM3 (4.00-5.30); RED CELL DISTRIBUTION WIDTH 18.3 % (11.6-17.2); WHITE BLOOD COUNT 5.2 TH/MM3 (4.0-11.0)
[2016-12-30 09:08] LABS: APTT (PATIENT) 27.9 SEC (24.3-30.1); PROTHROMBIN TIME - PATIENT 11.5 SEC (9.8-11.6)
[2016-12-30 10:49] VITALS: BP 126/70; PULSE 67; RESP 18; TEMP 98; O2SAT 100
[2016-12-30] MEDS ORDERED: LIDOCAINE HCL 1% PF 30 ML VIAL ONE (11:42)
[2016-12-30 12:25] VITALS: BP 111/56; PULSE 74; RESP 16; TEMP 98.7; O2SAT 100
[2016-12-30 12:40] VITALS: BP 124/61; PULSE 74; RESP 16; O2SAT 98
[2016-12-30] MEDS ORDERED: ALBUMIN HUMAN 25% 12.5GM-W/25GM FOR 37.5GM IV ONE (12:45)
[2016-12-30] MEDS ORDERED: ALBUMIN HUMAN 25% 25GM-W/12.5GM FOR 37.5GM IV ONE (12:45)
--- NOTE | 2016-12-30 12:50 | RADRPT ---
EXAM DATE/TIME: 12/30/2016 11:10 [facility] COMPARISON: US GUIDED ABD PARACENTESIS, December 12, 2016, 8:27. INDICATIONS : Ascites. MEDICAL HISTORY : Cirrhosis. Ascites. Dyspnea. ETOH abuse. SURGICAL HISTORY : Paracentesis. ENCOUNTER: Sequela ACUITY: 3 weeks PAIN SCORE: 1/10 LOCATION: Right lower quadrant FLUID: Total volume of 5,900 cc of clear, yellow fluid was removed. Fluid was discarded. Paracentesis was therapeutic only. Post procedure scanning reveals no hematoma or other complication. TECHNIQUE: 1. Ultrasound guidance for abdominal paracentesis. 2. Paracentesis. The risks, benefits, and alternatives to ultrasound guided paracentesis were explained to the patient in detail including the risk of bleeding and infection. Written and verbal informed consent was obt ained. With the patient on the ultrasound table, ultrasound imaging was used to select the most appropriate approach for paracentesis. Overlying skin was prepped and draped in the usual sterile fashion and wi th a local anesthetic, a dermatotomy was made with an 11 blade scalpel. A 6 Greek Tkv-R-jibtnnfr ca theter was introduced into the peritoneal cavity and fluid was collected. The patient tolerated the procedure well and left the ultrasound suite in stable condition. CONCLUSION: Uncomplicated ultrasound guided paracentesis. Akshat Xiong MD on December 30, 2016 at 12:48 Board Certified Radiologist. This report was verified electronically.
== END 2016-12-30 13:10 | disposition home or self-care (01) ==
LOC: HRAD 08:51 → HRIP 08:55 → HRAD 13:10
DX: R18.8 Other ascites (principal); K74.60 Unspecified cirrhosis of liver; R06.00 Dyspnea, unspecified; Z01.818 Encounter for other preprocedural examination
CPT/HCPCS: 36415; 49083; 85025; 85610; 85730; 96365; C1729; P9047

== ENCOUNTER 2017-01-18 09:48 | Day surgery (SDC) | payer MEDICAID ==
[2017-01-18 12:10] VITALS: BP 141/75; PULSE 80; RESP 20; TEMP 97.8; O2SAT 99
[2017-01-18] MEDS ORDERED: ALBUMIN HUMAN 25% 25 GM/100 ML BAGP IV ONE (12:25)
[2017-01-18 12:40] VITALS: BP 122/63; PULSE 79; RESP 20; O2SAT 100
[2017-01-18] MEDS ORDERED: ALBUMIN HUMAN 25% 12.5GM-W/25GM FOR 37.5GM IV ONE (12:45)
[2017-01-18] MEDS ORDERED: ALBUMIN HUMAN 25% 25GM-W/12.5GM FOR 37.5GM IV ONE (12:45)
[2017-01-18 13:00] VITALS: BP 122/63; PULSE 81; RESP 20; O2SAT 99
--- NOTE | 2017-01-18 13:58 | RADRPT ---
EXAM DATE/TIME: 01/18/2017 10:39 [facility] COMPARISON: US GUIDED ABD PARACENTESIS, December 30, 2016, 11:10. INDICATIONS : Ascites. MEDICAL HISTORY : Cirrhosis. Ascites. Dyspnea. ETOH abuse. SURGICAL HISTORY : Paracentesis. ENCOUNTER: Subsequent ACUITY: 4 - 6 days PAIN SCORE: 3/10 LOCATION: Right lower quadrant FLUID: Total volume of 5000 cc of clear, yellow fluid was removed. Fluid was discarded. Paracentesis was therapeutic only. Post procedure scanning reveals no hematoma or other complication. TECHNIQUE: 1. Ultrasound guidance for abdominal paracentesis. 2. Paracentesis. The risks, benefits, and alternatives to ultrasound guided paracentesis were explained to the patient in detail including the risk of bleeding and infection. Written and verbal informed consent was obt ained. With the patient on the ultrasound table, ultrasound imaging was used to select the most appropriate approach for paracentesis. Overlying skin was prepped and draped in the usual sterile fashion and wi th a local anesthetic, a dermatotomy was made with an 11 blade scalpel. A 6 Croatian Qpa-Y-bvukqslh ca theter was introduced into the peritoneal cavity and fluid was collected. The patient tolerated the procedure well and left the ultrasound suite in stable condition. CONCLUSION: Uncomplicated ultrasound guided paracentesis. Pj Kirk MD on January 18, 2017 at 13:55 Board Certified Radiologist. This report was verified electronically.
== END 2017-01-18 13:20 | disposition home or self-care (01) ==
LOC: HRAD 09:48
DX: R18.8 Other ascites (principal); K74.60 Unspecified cirrhosis of liver; F10.10 Alcohol abuse, uncomplicated
CPT/HCPCS: 49083; 96365; 96366; C1729; P9047

== ENCOUNTER 2017-02-15 08:42 | Day surgery (SDC) | payer MEDICAID ==
[2017-02-15 08:58] LABS: AUTOMATED NEUTROPHIL # 2.1 TH/MM3 (1.8-7.7); BASOPHIL % 1.1 % (0.0-2.0); EOSINOPHIL # 0.1 TH/MM3 (0-0.4); EOSINOPHIL % 2.9 % (0.0-4.0); HEMATOCRIT 36.5 % (35.0-46.0); LYMPH % 26.1 % (9.0-44.0); LYMPHOCYTE # 0.9 TH/MM3 (1.0-4.8); MEAN CELL VOLUME 99.9 FL (80.0-100.0); MEAN CORPUSCULAR HEMOGLOBIN 33.2 PG (27.0-34.0); MEAN CORPUSCULAR HGB CONC 33.2 % (32.0-36.0); MONO % 12.1 % (0.0-8.0); NEUT % 57.8 % (16.0-70.0); PLATELET COUNT 85 TH/MM3 (150-450); RED BLOOD COUNT 3.66 MIL/MM3 (4.00-5.30); RED CELL DISTRIBUTION WIDTH 15.2 % (11.6-17.2); WHITE BLOOD COUNT 3.6 TH/MM3 (4.0-11.0)
[2017-02-15 09:03] LABS: APTT (PATIENT) 27.9 SEC (24.3-30.1); PROTHROMBIN TIME - PATIENT 11.3 SEC (9.8-11.6)
[2017-02-15 09:08] LABS: HEMO FLAGS AUTO DIFF
[2017-02-15 09:29] VITALS: BP 138/77; PULSE 74; RESP 16; TEMP 98.8; O2SAT 99
[2017-02-15 09:56] LABS: PLATELET ESTIMATE SMEAR LOW (NORMAL); PLATELET MORPHOLOGY NORMAL (NORMAL); SCAN/DIFF AUTO DIFF CONFIRMED
[2017-02-15 10:45] VITALS: BP 125/72; PULSE 76; RESP 16; TEMP 98.6; O2SAT 99
[2017-02-15 11:00] VITALS: BP 123/69; PULSE 72; RESP 16; O2SAT 99
[2017-02-15] MEDS ORDERED: ALBUMIN HUMAN 25% 25 GM/100 ML BAGP IV ONE (11:00)
--- NOTE | 2017-02-15 11:03 | RADRPT ---
EXAM DATE/TIME: 02/15/2017 09:26 [facility] COMPARISON: US GUIDED ABD PARACENTESIS, January 18, 2017, 10:39. INDICATIONS : Ascites. MEDICAL HISTORY : Cirrhosis. Ascites. Dyspnea. ETOH abuse. Renal failure. SURGICAL HISTORY : Paracentesis. ENCOUNTER: Sequela ACUITY: 1 month PAIN SCORE: 0/10 LOCATION: Left lower quadrant FLUID: Total volume of 4,800 cc of clear, yellow fluid was removed. Fluid was discarded. Paracentesis was therapeutic only. Post procedure scanning reveals no hematoma or other complication. TECHNIQUE: 1. Ultrasound guidance for abdominal paracentesis. 2. Paracentesis. The risks, benefits, and alternatives to ultrasound guided paracentesis were explained to the patient in detail including the risk of bleeding and infection. Written and verbal informed consent was obt ained. With the patient on the ultrasound table, ultrasound imaging was used to select the most appropriate approach for paracentesis. Overlying skin was prepped and draped in the usual sterile fashion and wi th a local anesthetic, a dermatotomy was made with an 11 blade scalpel. A 6 Kazakh Zso-V-exdunzfr ca theter was introduced into the peritoneal cavity and fluid was collected. The patient tolerated the procedure well and left the ultrasound suite in stable condition. CONCLUSION: Uncomplicated ultrasound guided paracentesis. Hung Mendoza MD FACR on February 15, 2017 at 11:00 Board Certified Radiologist. This report was verified electronically.
[2017-02-15 11:15] VITALS: BP 122/67; PULSE 75; RESP 16; O2SAT 99
== END 2017-02-15 11:20 | disposition home or self-care (01) ==
LOC: HRAD 08:42 → HRIP 08:58 → HRAD 11:20
DX: R18.8 Other ascites (principal); K74.60 Unspecified cirrhosis of liver; F10.10 Alcohol abuse, uncomplicated; R06.00 Dyspnea, unspecified
CPT/HCPCS: 36415; 49083; 85025; 85610; 85730; C1729

== ENCOUNTER 2017-03-14 09:37 | Day surgery (SDC) | payer MEDICAID ==
[2017-03-14 10:23] VITALS: BP 123/73; PULSE 81; RESP 14; TEMP 98.8; O2SAT 100
[2017-03-14 11:00] VITALS: BP 139/70; PULSE 83; RESP 18; TEMP 99.3; O2SAT 97
[2017-03-14] MEDS ORDERED: LIDOCAINE HCL 1% PF 30 ML VIAL ONE (11:14)
[2017-03-14 11:15] VITALS: BP 124/65; PULSE 84; RESP 18; O2SAT 96
--- NOTE | 2017-03-14 11:51 | RADRPT ---
EXAM DATE/TIME: 03/14/2017 09:57 [facility] COMPARISON: US GUIDED ABD PARACENTESIS, February 15, 2017, 9:26. INDICATIONS : Ascites. MEDICAL HISTORY : Cirrhosis. Renal failure. ETOH abuse. SURGICAL HISTORY : Paracentesis. ENCOUNTER: Sequela ACUITY: 3 weeks PAIN SCORE: 2/10 LOCATION: Right lower quadrant FLUID: Total volume of 4150 cc of clear, yellow fluid was removed. Fluid was discarded. Paracentesis was therapeutic only. Post procedure scanning reveals no hematoma or other complication. TECHNIQUE: 1. Ultrasound guidance for abdominal paracentesis. 2. Paracentesis. The risks, benefits, and alternatives to ultrasound guided paracentesis were explained to the patient in detail including the risk of bleeding and infection. Written and verbal informed consent was obt ained. With the patient on the ultrasound table, ultrasound imaging was used to select the most appropriate approach for paracentesis. Overlying skin was prepped and draped in the usual sterile fashion and wi th a local anesthetic, a dermatotomy was made with an 11 blade scalpel. A 6 Saudi Arabian Vvq-O-ijwzkwtq ca theter was introduced into the peritoneal cavity and fluid was collected. The patient tolerated the procedure well and left the ultrasound suite in stable condition. CONCLUSION: Uncomplicated ultrasound guided paracentesis. Pito Hammond MD on March 14, 2017 at 11:49 Board Certified Radiologist. This report was verified electronically.
== END 2017-03-14 11:40 | disposition home or self-care (01) ==
LOC: HRAD 09:37 → HRIP 09:39 → HRAD 11:40
DX: R18.8 Other ascites (principal); K74.60 Unspecified cirrhosis of liver; N19 Unspecified kidney failure; F10.10 Alcohol abuse, uncomplicated
CPT/HCPCS: 49083; C1729

== ENCOUNTER 2017-04-18 08:25 | Day surgery (SDC) | payer MEDICAID ==
[2017-04-18 08:54] LABS: AUTOMATED NEUTROPHIL # 2.3 TH/MM3 (1.8-7.7); BASOPHIL % 0.6 % (0.0-2.0); EOSINOPHIL # 0.1 TH/MM3 (0-0.4); HEMATOCRIT 41.3 % (35.0-46.0); LYMPH % 22.2 % (9.0-44.0); LYMPHOCYTE # 0.8 TH/MM3 (1.0-4.8); MEAN CELL VOLUME 102.8 FL (80.0-100.0); MEAN CORPUSCULAR HEMOGLOBIN 34.4 PG (27.0-34.0); MEAN CORPUSCULAR HGB CONC 33.4 % (32.0-36.0); MONO % 13.9 % (0.0-8.0); NEUT % 60.3 % (16.0-70.0); PLATELET COUNT 81 TH/MM3 (150-450); RED BLOOD COUNT 4.01 MIL/MM3 (4.00-5.30); RED CELL DISTRIBUTION WIDTH 15.7 % (11.6-17.2); WHITE BLOOD COUNT 3.8 TH/MM3 (4.0-11.0)
[2017-04-18 09:06] LABS: APTT (PATIENT) 27.5 SEC (24.3-30.1); INTERNATIONAL NORMALIZED RATIO 1.1 RATIO; PROTHROMBIN TIME - PATIENT 12.4 SEC (9.8-11.6)
[2017-04-18 09:20] LABS: HEMO FLAGS AUTO DIFF
[2017-04-18 09:46] LABS: SCAN/DIFF AUTO DIFF CONFIRMED
[2017-04-18 11:06] VITALS: BP 130/70; PULSE 69; RESP 17; TEMP 98.4; O2SAT 100
[2017-04-18] MEDS ORDERED: LIDOCAINE HCL 1% 20 ML VIAL ONE (11:17)
[2017-04-18 11:22] VITALS: BP 141/72; PULSE 72; RESP 18; O2SAT 100
--- NOTE | 2017-04-18 13:40 | RADRPT ---
EXAM DATE/TIME: 04/18/2017 10:04 [facility] COMPARISON: US GUIDED ABD PARACENTESIS, March 14, 2017, 9:57. INDICATIONS : Ascites. MEDICAL HISTORY : Cirrhosis. Renal failure. ETOH abuse. SURGICAL HISTORY : Paracentesis ENCOUNTER: Sequela ACUITY: 1 month PAIN SCORE: LOCATION: Left lower quadrant FLUID: Total volume of 3800 cc of clear, yellow fluid was removed. Fluid was discarded. Paracentesis was therapeutic only. Post procedure scanning reveals no hematoma or other complication. TECHNIQUE: 1. Ultrasound guidance for abdominal paracentesis. 2. Paracentesis. The risks, benefits, and alternatives to ultrasound guided paracentesis were explained to the patient in detail including the risk of bleeding and infection. Written and verbal informed consent was obt ained. With the patient on the ultrasound table, ultrasound imaging was used to select the most appropriate approach for paracentesis. Overlying skin was prepped and draped in the usual sterile fashion and wi th a local anesthetic, a dermatotomy was made with an 11 blade scalpel. A 6 Turkmen Vyo-H-qoqhjwpt ca theter was introduced into the peritoneal cavity and fluid was collected. The patient tolerated the procedure well and left the ultrasound suite in stable condition. CONCLUSION: Uncomplicated ultrasound guided paracentesis. Pito Hammond MD on April 18, 2017 at 13:38 Board Certified Radiologist. This report was verified electronically.
== END 2017-04-18 11:40 | disposition home or self-care (01) ==
LOC: HRAD 08:25 → HRIP 08:28 → HRAD 11:40
DX: K70.31 Alcoholic cirrhosis of liver with ascites (principal); F10.10 Alcohol abuse, uncomplicated; N18.9 Chronic kidney disease, unspecified
CPT/HCPCS: 36415; 49083; 85025; 85610; 85730; C1729

== ENCOUNTER 2017-05-17 07:44 | Day surgery (SDC) | payer MEDICAID ==
[2017-05-17 08:08] VITALS: BP 123/66; PULSE 79; RESP 14; TEMP 98.7; O2SAT 96
[2017-05-17 09:00] VITALS: BP 133/71; PULSE 76; PULSE 78; RESP 20; TEMP 98.7; O2SAT 98
[2017-05-17] MEDS ORDERED: LIDOCAINE HCL 1% 20 ML VIAL ONE (09:03)
[2017-05-17 09:15] VITALS: BP 133/70; PULSE 75; RESP 20; TEMP 98.7; O2SAT 98
--- NOTE | 2017-05-17 09:16 | RADRPT ---
EXAM DATE/TIME: 05/17/2017 08:07 [facility] COMPARISON: US GUIDED ABD PARACENTESIS, April 18, 2017, 10:04. INDICATIONS : Ascites. MEDICAL HISTORY : Cirrhosis. Renal failure. ETOH abuse. SURGICAL HISTORY : Paracentesis. ENCOUNTER: Sequela ACUITY: 1 month PAIN SCORE: 0/10 LOCATION: Right lower quadrant FLUID: Total volume of 3,100 cc of clear, yellow fluid was removed. Fluid was discarded. Paracentesis was therapeutic only. Post procedure scanning reveals no hematoma or other complication. TECHNIQUE: 1. Ultrasound guidance for abdominal paracentesis. 2. Paracentesis. The risks, benefits, and alternatives to ultrasound guided paracentesis were explained to the patient in detail including the risk of bleeding and infection. Written and verbal informed consent was obt ained. With the patient on the ultrasound table, ultrasound imaging was used to select the most appropriate approach for paracentesis. Overlying skin was prepped and draped in the usual sterile fashion and wi th a local anesthetic, a dermatotomy was made with an 11 blade scalpel. A 6 Grenadian Soz-Z-pwqllree ca theter was introduced into the peritoneal cavity and fluid was collected. The patient tolerated the procedure well and left the ultrasound suite in stable condition. CONCLUSION: Uncomplicated ultrasound guided paracentesis. Pito Hammond MD on May 17, 2017 at 9:14 Board Certified Radiologist. This report was verified electronically.
== END 2017-05-17 09:25 | disposition home or self-care (01) ==
LOC: HRAD 07:44 → HRIP 07:45 → HRAD 09:25
DX: R18.8 Other ascites (principal)
CPT/HCPCS: 49083; C1729

== ENCOUNTER 2017-08-29 08:54 | Day surgery (SDC) | payer MEDICAID ==
[2017-08-29 09:20] LABS: HEMATOCRIT 32.1 % (35.0-46.0); HEMOGLOBIN 11.1 GM/DL (11.6-15.3); MEAN CELL VOLUME 107.2 FL (80.0-100.0); MEAN CORPUSCULAR HGB CONC 34.6 % (32.0-36.0); MEAN PLATELET VOLUME 8.2 FL (7.0-11.0); PLATELET COUNT 66 TH/MM3 (150-450); RED CELL DISTRIBUTION WIDTH 14.7 % (11.6-17.2); WHITE BLOOD COUNT 4.3 TH/MM3 (4.0-11.0)
[2017-08-29 09:23] LABS: INTERNATIONAL NORMALIZED RATIO 1.1 RATIO; PROTHROMBIN TIME - PATIENT 10.9 SEC (9.8-11.6)
--- NOTE | 2017-08-29 11:04 | RADRPT ---
EXAM DATE/TIME: 08/29/2017 09:55 [facility] COMPARISON: US GUIDED ABD PARACENTESIS, May 17, 2017, 8:07. INDICATIONS : Ascites. MEDICAL HISTORY : Cirrhosis. Renal failure. ETOH abuse. Ascites. SURGICAL HISTORY : Paracentesis. ENCOUNTER: Sequela ACUITY: 1 day PAIN SCORE: 0/10 LOCATION: Left lower quadrant FLUID: Total volume of cc of fluid was removed. Fluid was discarded. Paracentesis was therapeutic only. Post procedure scanning reveals no hematoma or other complication. TECHNIQUE: 1. Ultrasound guidance for abdominal paracentesis. 2. Paracentesis. The risks, benefits, and alternatives to ultrasound guided paracentesis were explained to the patient in detail including the risk of bleeding and infection. Written and verbal informed consent was obt ained. With the patient on the ultrasound table, ultrasound imaging was used to select the most appropriate approach for paracentesis. Overlying skin was prepped and draped in the usual sterile fashion and wi th a local anesthetic, a dermatotomy was made with an 11 blade scalpel. A 6 [place]ine[place] Bbt-G-icjecwjn ca theter was introduced into the peritoneal cavity and fluid was collected. The patient tolerated the procedure well and left the ultrasound suite in stable condition. CONCLUSION: Uncomplicated ultrasound guided paracentesis. Pito Hammond MD on August 29, 2017 at 11:02 Board Certified Radiologist. This report was verified electronically.
[2017-08-29 11:05] VITALS: BP 153/80; PULSE 85; RESP 18; TEMP 98.9; O2SAT 99
[2017-08-29] MEDS ORDERED: LIDOCAINE HCL 1% 20 ML VIAL ONE (11:05)
[2017-08-29 11:20] VITALS: BP 160/79; PULSE 76; RESP 18; O2SAT 99
== END 2017-08-29 11:37 | disposition home or self-care (01) ==
LOC: HRAD 08:54 → HRIP 09:02 → HRAD 11:37
DX: R18.8 Other ascites (principal); K74.60 Unspecified cirrhosis of liver; N19 Unspecified kidney failure; F10.10 Alcohol abuse, uncomplicated
CPT/HCPCS: 36415; 49083; 85027; 85610; 85730; C1729

== ENCOUNTER 2017-09-15 09:25 | Day surgery (SDC) | payer MEDICAID ==
[2017-09-15 09:50] VITALS: BP 143/85; PULSE 87; RESP 18; TEMP 98; O2SAT 99
[2017-09-15 11:05] VITALS: BP 109/62; PULSE 68; RESP 16; TEMP 97.6; O2SAT 96
[2017-09-15 11:20] VITALS: BP 111/60; PULSE 63; RESP 16; O2SAT 96
[2017-09-15] MEDS ORDERED: LIDOCAINE HCL 1% 20 ML VIAL ONE (12:48)
--- NOTE | 2017-09-15 14:17 | RADRPT ---
EXAM DATE/TIME: 09/15/2017 09:55 [facility] COMPARISON: US GUIDED ABD PARACENTESIS, August 29, 2017, 9:55. INDICATIONS : Ascites. MEDICAL HISTORY : Cirrhosis. Renal failure. ETOH abuse. Ascites. SURGICAL HISTORY : Paracentesis. ENCOUNTER: Subsequent ACUITY: 2 weeks PAIN SCORE: 0/10 LOCATION: Left lower quadrant FLUID: Total volume of 2,500 cc of cloudy, red fluid was removed. Fluid was discarded. Paracentesis was therapeutic only. Post procedure scanning reveals no hematoma or other complication. TECHNIQUE: 1. Ultrasound guidance for abdominal paracentesis. 2. Paracentesis. The risks, benefits, and alternatives to ultrasound guided paracentesis were explained to the patient in detail including the risk of bleeding and infection. Written and verbal informed consent was obt ained. With the patient on the ultrasound table, ultrasound imaging was used to select the most appropriate approach for paracentesis. Overlying skin was prepped and draped in the usual sterile fashion and wi th a local anesthetic, a dermatotomy was made with an 11 blade scalpel. A 6 Occitan Blq-J-cxnjzejw ca theter was introduced into the peritoneal cavity and fluid was collected. The patient tolerated the procedure well and left the ultrasound suite in stable condition. CONCLUSION: Uncomplicated ultrasound guided paracentesis. Sylvester Mendoza MD on September 15, 2017 at 14:15 Board Certified Radiologist. This report was verified electronically.
== END 2017-09-15 12:30 | disposition home or self-care (01) ==
LOC: HRAD 09:25 → HRIP 09:30 → HRAD 12:30
DX: R18.8 Other ascites (principal); K74.60 Unspecified cirrhosis of liver; F10.10 Alcohol abuse, uncomplicated; N19 Unspecified kidney failure
CPT/HCPCS: 49083; C1729

== ENCOUNTER 2018-07-06 19:31 | Observation (INO) ==
[2018-07-06 20:34] LABS: Baso # (Auto) 0.1 th/mm3 (0.0-0.2); Baso % (Auto) 2.2 % (0.0-2.0); Eos # (Auto) 0.1 th/mm3 (0.0-0.4); Eos % (Auto) 2.9 % (0.0-4.0); Hematocrit 32.2 % (35.0-46.0); Mean Corpuscular Hemoglobin 36.3 pg (27.0-34.0); Mean Corpuscular Volume 106.6 fL (80.0-100.0); Mean Platelet Volume 8.6 fL (7.0-11.0); Mono # (Auto) 0.5 th/mm3 (0.0-0.9); Mono % (Auto) 13.4 % (0.0-8.0); Neut # (Auto) 2.1 th/mm3 (1.8-7.7); Neut % (Auto) 56.5 % (16.0-70.0); Platelet Count 39 th/mm3 (150-450); Red Blood Count 3.02 mil/mm3 (4.00-5.30); White Blood Count 3.8 th/mm3 (4.0-11.0)
--- NOTE | 2018-07-06 20:40 | CT ---
EXAM DATE: 07/06/2018 8:37 PM EST AGE/SEX: 62 years / Female INDICATIONS: Fall yesterday, Laceration left forehead CLINICAL DATA: This is the patient's initial encounter. Patient reports that signs and symptoms have been present for 1 day and indicates a pain score of 4/10. MEDICAL/SURGICAL HISTORY: . Liver Failure None. RADIATION DOSE: 48.40 CTDI (mGy) COMPARISON: No prior exams available for comparison. TECHNIQUE: CT of the head without contrast. Using automated exposure control and adjustment of the mA and/or kV according to patient size, radiation dose was kept as low as reasonably achievable to ob tain optimal diagnostic quality images. DICOM format image data is available electronically for revi ew and comparison. FINDINGS: Cerebrum: Mild diffuse cerebral atrophy. The ventricles are normal for degree of atrophy. No evidenc e of midline shift, mass lesion, hemorrhage or acute infarction. No extraaxial fluid collections are seen. Posterior Fossa: The cerebellum and brainstem are intact. The 4th ventricle is midline. The cerebe llopontine angle is unremarkable. Extracranial: The visualized portion of the orbits is intact. Very small soft tissue hematoma in the left anterior scalp region. Skull: The calvaria is intact. No evidence of skull fracture. CONCLUSION: 1. No acute intracranial abnormality. . Electronically signed by: Pito Hammond MD Board Certified Radiologist 07/06/2018 8:39 PM [facility]
[2018-07-06 20:43] LABS: INR 1.1 Ratio; Prothrombin Time 11.3 sec (9.8-11.6)
[2018-07-06 20:46] LABS: Bacteria,Urine Many /hpf; Bilirubin,Urine Negative (Negative); Clarity,Urine Hazy (Clear); Glucose,Urine (UA) Negative (Negative); Hyaline Casts,Urine 1 /lpf (0-3); Leukocyte Esterase,Urine Negative (Negative); Mucus,Urine Few /lpf (Occasional); Nitrite,Urine Positive (Negative); Specific Gravity,Urine 1.019 (1.002-1.035); Squamous Epithelial Cell,Urine 2 /hpf (0-5)
[2018-07-06 20:52] LABS: Color,Urine Yellow (Yellw/Straw)
[2018-07-06 20:59] LABS: Albumin 2.9 g/dL (3.4-5.0); Anion Gap 9 meq/L (5-15); Aspartate Aminotransferase 90 U/L (15-37); Blood Urea Nitrogen 14 mg/dL (7-18); Calcium 8.4 mg/dL (8.5-10.1); Carbon Dioxide 24.5 meq/L (21.0-32.0); Chloride 113 meq/L (98-107); Glomerular Filtration Rate Greater Than 89 mL/min (>89); Glucose,Random 117 mg/dL (74-106); Magnesium 1.9 mg/dL (1.5-2.5); Potassium 3.6 meq/L (3.5-5.1); Sodium 146 meq/L (136-145)
[2018-07-06 21:02] LABS: Alanine Aminotransferase 24 U/L (10-53); Alkaline Phosphatase 318 U/L (45-117); Total Protein 7.6 g/dL (6.4-8.2)
[2018-07-06 21:10] LABS: Platelet Morphology Normal (Normal)
--- NOTE | 2018-07-06 21:24 | ED ---
HPI General Chief complaint: Weakness Stated complaint: Weakness Time Seen by Provider: 07/06/18 19:43 Source: patient Mode of arrival: ambulatory Limitations: no limitations History of Present Illness HPI Narrative: 62 yo F c/o weakness with fall today with forehead contusion. Generalized weakness over past few days reported. Pt denies EtOH tonight however has a hx of cirrhosis. No LOC reported. No CP/SOB reported. Weakness is constant. Forehead cephalgia contusion, mild, worse with palpation. Related Data Home Medications Medication Instructions Recorded Confirmed No Known Home Medications 07/06/18 07/06/18 Allergies Allergy/AdvReac Type Severity Reaction Status Date / Time No Known Allergies Allergy Uncoded 01/18/17 12:32 Review of Systems ROS: all other systems reviewed are negative Constitutional Denies fever(s) [facility] Medical History Medical History Liver failure (Acute) Surgical History Surgical History No history of previous surgery (Acute) Social History Social History Smoking Status: Current some day smoker Tobacco Type: Cigarettes How Often Do You Have a Drink Containing Alcohol: Never Recent Travel in [facility] within the Last 8 Weeks: No Recent Out of Country Travel within the Last 8 Weeks: No Immunization History Tetanus Immunization: Unsure Exam Narrative Exam Narrative: GENERAL: 62-year-old female thin no acute distress SKIN: Focused skin assessment warm/dry. HEAD: Forehead contusion present on left with dried blood/superficial linear abrasion. EYES: Pupils equal and round. No scleral icterus. No injection or drainage. There is ecchymosis about the lower right eye. ENT: No nasal bleeding or discharge. Mucous membranes pink and moist. NECK: Trachea midline. No JVD. CARDIOVASCULAR: Regular rate and rhythm. No murmur appreciated. RESPIRATORY: No accessory muscle use. Clear to auscultation. Breath sounds equal bilaterally. GASTROINTESTINAL: Abdomen soft, non-tender, nondistended. Hepatic and splenic margins not palpable. MUSCULOSKELETAL: Proximal atrophy noted in the arms and legs bilaterally. NEUROLOGICAL: Awake and alert. No obvious cranial nerve deficits. Motor grossly within normal limits. Normal speech. PSYCHIATRIC: EtOH on breath Course Initial Documented Vital Signs Temperature 98.7 F 07/06/18 19:44 Pulse Rate 81 07/06/18 19:44 Respiratory Rate 16 07/06/18 19:44 Blood Pressure 126/74 07/06/18 19:44 Pulse Oximetry 97 12/14/18 19:44 Last Documented Vital Signs Temperature 98.7 F 07/06/18 19:44 Pulse Rate 81 07/06/18 19:44 Respiratory Rate 16 07/06/18 19:44 Blood Pressure 126/74 07/06/18 19:44 Pulse Oximetry 97 07/06/18 19:44 Medical Decision Making MDM Narrative Medical decision making narrative: UA: UTI present Head CT shows no ICH Platelet 39,000 Pt with head trauma, thrombocytopenia. Platelet transfusion started in ED Rocephin started d/w Dr [place] for [facility] Medical Screen Exam Complete: Yes Emergency Medical Condition: Yes Lab Data Lab results reviewed: Yes I reviewed the patient's lab results. Result diagrams: 07/06/18 20:15 07/06/18 20:15 Lab Results 07/06/18 07/06/18 07/06/18 Range/Units 20:15 20:15 20:15 WBC 3.8 L (4.0-11.0) th/mm3 RBC 3.02 L (4.00-5.30) mil/mm3 Hgb 11.0 L (11.6-15.3) gm/dL Hct 32.2 L (35.0-46.0) % MCV 106.6 H (80.0-100.0) fL MCH 36.3 H (27.0-34.0) pg MCHC 34.0 (32.0-36.0) % RDW 16.0 (11.6-17.2) % Plt Count 39 L (150-450) th/mm3 MPV 8.6 (7.0-11.0) fL Prelim Diff (Auto) Slide review pending Neut % (Auto) 56.5 (16.0-70.0) % Lymph % (Auto) 25.0 (9.0-44.0) % [place] % (Auto) 13.4 H (0.0-8.0) % Eos % (Auto) 2.9 (0.0-4.0) % Baso % (Auto) 2.2 H (0.0-2.0) % Neut # (Auto) 2.1 (1.8-7.7) th/mm3 Lymph # (Auto) 1.0 (1.0-4.8) th/mm3 [place] # (Auto) 0.5 (0.0-0.9) th/mm3 Eos # (Auto) 0.1 (0.0-0.4) th/mm3 Baso # (Auto) 0.1 (0.0-0.2) th/mm3 WBC Differential . Diff Scan Auto diff confirmed Differential Comment . Platelet Estimate Low L (Normal) Platelet Morphology Normal (Normal) PT 11.3 (9.8-11.6) sec INR 1.1 Ratio Sodium 146 H (136-145) meq/L Potassium 3.6 (3.5-5.1) meq/L Chloride 113 H (98-107) meq/L Carbon Dioxide 24.5 (21.0-32.0) meq/L Anion Gap 9 (5-15) meq/L BUN 14 (7-18) mg/dL Creatinine 0.62 (0.50-1.00) mg/dL Estimated GFR Greater than 89 (>89) mL/min Random Glucose 117 H (74-106) mg/dL Calcium 8.4 L (8.5-10.1) mg/dL Magnesium 1.9 (1.5-2.5) mg/dL Total Bilirubin 1.7 H (0.2-1.0) mg/dL AST 90 H (15-37) U/L ALT 24 (10-53) U/L Alkaline Phosphatase 318 H (45-117) U/L Total Protein 7.6 (6.4-8.2) g/dL Albumin 2.9 L (3.4-5.0) g/dL Urine Color (Yellw/Straw) Urine Clarity (Clear) Urine pH (5.0-8.5) Ur Specific [place] (1.002-1.035) Urine Protein (Neg-Trace) mg/dL Urine Glucose (UA) (Negative) mg/dL Urine Ketones (Negative) mg/dL Urine Occult Blood (Negative) Urine Nitrate (Negative) Urine Bilirubin (Negative) Urine Urobilinogen (Less than 2) mg/dL Ur Leukocyte Esterase (Negative) Urine WBC (0-5) /hpf Ur Squamous Epith Cells (0-5) /hpf Urine Bacteria (None) /hpf Hyaline Casts (0-3) /lpf Urine Mucus (Occasional) /lpf Micro UA Comment Ur Microscopic Review Urine Culture Comments 07/06/ Range/Units 20:15 WBC (4.0-11.0) th/mm3 RBC (4.00-5.30) mil/mm3 Hgb (11.6-15.3) gm/dL Hct (35.0-46.0) % MCV (80.0-100.0) fL MCH (27.0-34.0) pg MCHC (32.0-36.0) % RDW (11.6-17.2) % Plt Count (150-450) th/mm3 MPV (7.0-11.0) fL Prelim Diff (Auto) Neut % (Auto) (16.0-70.0) % Lymph % (Auto) (9.0-44.0) % [place] % (Auto) (0.0-8.0) % Eos % (Auto) (0.0-4.0) % Baso % (Auto) (0.0-2.0) % Neut # (Auto) (1.8-7.7) th/mm3 Lymph # (Auto) (1.0-4.8) th/mm3 [place] # (Auto) (0.0-0.9) th/mm3 Eos # (Auto) (0.0-0.4) th/mm3 Baso # (Auto) (0.0-0.2) th/mm3 WBC Differential Diff Scan Differential Comment Platelet Estimate (Normal) Platelet Morphology (Normal) PT (9.8-11.6) sec INR Ratio Sodium (136-145) meq/L Potassium (3.5-5.1) meq/L Chloride (98-107) meq/L Carbon Dioxide (21.0-32.0) meq/L Anion Gap (5-15) meq/L BUN (7-18) mg/dL Creatinine (0.50-1.00) mg/dL Estimated GFR (>89) mL/min Random Glucose (74-106) mg/dL Calcium (8.5-10.1) mg/dL Magnesium (1.5-2.5) mg/dL Total Bilirubin (0.2-1.0) mg/dL AST (15-37) U/L ALT (10-53) U/L Alkaline Phosphatase (45-117) U/L Total Protein (6.4-8.2) g/dL Albumin (3.4-5.0) g/dL Urine Color Yellow (Yellw/Straw) Urine Clarity Hazy H (Clear) Urine pH 6.0 (5.0-8.5) Ur Specific [place] 1.019 (1.002-1.035) Urine Protein Negative (Neg-Trace) mg/dL Urine Glucose (UA) Negative (Negative) mg/dL Urine Ketones Negative (Negative) mg/dL Urine Occult Blood Negative (Negative) Urine Nitrate Positive H (Negative) Urine Bilirubin Negative (Negative) Urine Urobilinogen Less than 2 (Less than 2) mg/dL Ur Leukocyte Esterase Negative (Negative) Urine WBC 2 (0-5) /hpf Ur Squamous Epith Cells 2 (0-5) /hpf Urine Bacteria Many H (None) /hpf Hyaline Casts 1 (0-3) /lpf Urine Mucus Few H (Occasional) /lpf Micro UA Comment Culture indicated Ur Microscopic Review Not Reportable Urine Culture Comments Culture indicated Imaging Data Radiologist's impression: Head CT 07/06/18 19:53 CONCLUSION: 1. No acute intracranial abnormality. . Discharge Plan Discharge Disposition Patient Disposition: ED Admit(ED Internal Use Only) Discharge Order Discharge Orders: ED Use Only Admit Order (Routine); Ordered 07/06/18 Ordered By: Sylvester Mendez Physicians Team ED Provider: Sylvester Mendez Rxs /Orders / Referrals /Forms Prescriptions: No Action No Known Home Medications RF: 0 Status ED Status: With Doctor
[2018-07-06] MEDS ORDERED: Bisacodyl 10 MG Supp RECTAL PRN (21:57)
[2018-07-06] MEDS ORDERED: Haloperidol Inj 5 MG/ML Ampul IV.PUSH PRN (22:03)
[2018-07-06] MEDS: Sodium Chloride 0.45 % Inj 1,000 ML IV.CONT SCH (22:53)
[2018-07-06 23:21] LABS: Alcohol 369 mg/dL (0-5)
[2018-07-07] MEDS: Acetaminophen 325 MG Tablet PO PRN ×3 (02:38→22:57)
[2018-07-07 08:35] LABS: Baso # (Auto) 0.1 th/mm3 (0.0-0.2); Baso % (Auto) 1.3 % (0.0-2.0); Eos # (Auto) 0.1 th/mm3 (0.0-0.4); Eos % (Auto) 1.7 % (0.0-4.0); Hematocrit 29.9 % (35.0-46.0); Lymph # (Auto) 0.8 th/mm3 (1.0-4.8); Lymph % (Auto) 20.6 % (9.0-44.0); Mean Corpuscular HGB Conc 33.6 % (32.0-36.0); Mean Corpuscular Hemoglobin 36.3 pg (27.0-34.0); Mean Corpuscular Volume 108.2 fL (80.0-100.0); Mean Platelet Volume 8.6 fL (7.0-11.0); Mono # (Auto) 0.5 th/mm3 (0.0-0.9); Mono % (Auto) 12.9 % (0.0-8.0); Neut # (Auto) 2.5 th/mm3 (1.8-7.7); Neut % (Auto) 63.5 % (16.0-70.0); Platelet Count 82 th/mm3 (150-450); Red Blood Count 2.76 mil/mm3 (4.00-5.30); Red Cell Distribution Width 15.9 % (11.6-17.2); White Blood Count 3.9 th/mm3 (4.0-11.0)
[2018-07-07 09:17] LABS: Albumin 2.7 g/dL (3.4-5.0); Anion Gap 11 meq/L (5-15); Aspartate Aminotransferase 72 U/L (15-37); Blood Urea Nitrogen 12 mg/dL (7-18); Calcium 7.7 mg/dL (8.5-10.1); Carbon Dioxide 21.5 meq/L (21.0-32.0); Chloride 113 meq/L (98-107); Glomerular Filtration Rate Greater Than 89 mL/min (>89); Glucose,Random 85 mg/dL (74-106); Potassium 3.4 meq/L (3.5-5.1); Sodium 145 meq/L (136-145)
[2018-07-07 09:18] LABS: Alanine Aminotransferase 18 U/L (10-53)
[2018-07-07 09:20] LABS: Platelet Morphology Normal (Normal)
[2018-07-07 09:21] LABS: Alkaline Phosphatase 272 U/L (45-117); Total Protein 6.8 g/dL (6.4-8.2)
--- NOTE | 2018-07-07 10:22 | ECG ---
Date Performed: 07/06/2018 Time Performed: 19:40:38 PTAGE: 62 years EKG: Sinus rhythm NORMAL ECG Since the PREVIOUS TRACING , no significant change noted PREVIOUS TRACIN08/08/2016 17.48 DOCTOR: Gerardo Aguilar Interpretating Date/Time 07/07/2018 10:21:36
--- NOTE | 2018-07-07 12:16 | P.CONGI ---
History of Present Illness Consult date: 07/07/18 Consult reason: Cirrhosis Establish care Chief complaint: thrombocytopenia, fall, UTI History of Present Illness: This patient is a 62-year-old female with a past medical history significant for alcohol abuse and cirrhosis. Patient denies any previous surgeries. Upon consultation, patient endorses that she tripped and fell while walking down her driveway to get the mail. Patient endorses generalized weakness. She denies chest pain or shortness of breath. Denies abdominal pain nausea or vomiting. Of note, patient has a significant amount of ascites for which she said she had a therapeutic paracentesis lastly done 6 months ago. Patient denies any use of diuretics or any prescription medications. She denies use of aspirin but does endorse taking ibuprofen as needed for generalized discomfort joint pain. Patient denies any noted bleeding. Denies melena or hematemesis. States she was diagnosed with cirrhosis in 2016. Last EGD done August 12, 2016 revealed portal hypertensive gastropathy in the gastric fundus as well as gastritis in the gastric antrum. Denies any symptoms of acid reflux, difficulty swallowing or painful swallowing. Patient denies ever having had a colonoscopy. States she has brown soft stools 2-3 times daily without any noted bleeding. Patient endorses tobacco use 1-2 cigarettes daily and reports that she drinks 2 bottles of vodka a week. Patient states she stopped taking diuretics 6 months ago because she "felt like she was urinating too much". Patient endorses family history of liver cirrhosis-her brother. Our service has been consulted to evaluate patient for establishment of care and medication recommendations for cirrhosis. <Riddhi Alexander - Last Filed: 07/07/18 19:09> Review of Systems All other systems reviewed negative except as stated in HPI <Riddhi Alexander - Last Filed: 07/07/18 19:09> PMFSH - History History Provided By: Patient - Medical History Medical History: Medical History (Last Reviewed 07/07/18 @ 16:42 by Pj Tena MD) Liver failure - Surgical History Surgical History: Surgical History (Last Reviewed 07/07/18 @ 16:42 by Pj Tena MD) No history of previous surgery - Tobacco History Second Hand Smoke Exposure: No Tobacco Use In Past 30 Days: Yes Smoking Status: Light tobacco smoker Tobacco Type: Cigarettes - Alcohol History How Often Do You Have a Drink Containing Alcohol: Monthly or less - Substance Use History Substance History: No History of Abuse - Travel History Recent Travel in the [place] Within the Last 8 Weeks: No Recent Travel Out of the Country Within the Last 8 Weeks: No - Immunization History Tetanus Immunization: Unsure <Riddhi Alexander - Last Filed: 07/07/18 19:09> - Medical History Medical History: Medical History (Last Reviewed 07/07/18 @ 16:42 by Pj Tena MD) Liver failure - Surgical History Surgical History: Surgical History (Last Reviewed 07/07/18 @ 16:42 by Pj Tena MD) No history of previous surgery <Sae Do - Last Filed: 07/08/18 08:23> Medications and Allergies Active Medications: Active Medications Acetaminophen (Tylenol) 650 mg PO Q4H PRN PRN Reason: Temp > 100.4 Last Admin: 07/07/18 02:38 Dose: 650 mg Al Hydroxide/Mg Hydroxide (Milk Of Magnesia Liq) 30 ml PO Q12H PRN PRN Reason: Mild Constipation Bisacodyl (Dulcolax Supp) 10 mg RECTAL DAILY PRN PRN Reason: SEVERE CONSITIPATION Flumazenil (Romazecon Inj) 0.2 mg IV.PUSH Q1M PRN PRN Reason: OVERSEDATION Haloperidol Lactate (Haldol Inj) 1 mg IV.PUSH Q15M PRN PRN Reason: for severe agitation Sodium Chloride (1/2 Normal Saline Inj) 1,000 mls @ 75 mls/hr IV.CONT .[id number] [facility] Last Admin: 07/06/18 22:53 Dose: 75 mls/hr Ceftriaxone Sodium 1,000 mg/ (Sodium Chloride) 100 mls @ 200 mls/hr IV.SIG Q24H [facility] Lactulose (Lactulose Liq) 30 ml PO DAILY PRN PRN Reason: SEVERE CONSITIPATION Lorazepam (Ativan) 2 mg PO Q2H PRN PRN Reason: for CIWA 11-14 Lorazepam (Ativan Inj) 2 mg IV.PUSH Q2H PRN PRN Reason: for CIWA 11-14 Lorazepam (Ativan Inj) 2 mg IV.PUSH Q1H PRN PRN Reason: for CIWA 15-20 Lorazepam (Ativan Inj) 2 mg IV.PUSH Q15M PRN PRN Reason: for CIWA > 20 Lorazepam (Ativan Inj) 1 mg IV.PUSH Q4H PRN PRN Reason: for CIWA 8-10 Lorazepam (Ativan) 1 mg PO Q4H PRN PRN Reason: for CIWA 8-10 Ondansetron HCl (Zofran Inj) 4 mg IV.PUSH Q6H PRN PRN Reason: NAUSEA OR VOMITING Sennosides (Senokot) 17.2 mg PO Q12H PRN PRN Reason: Moderate Constipation Sodium Chloride (Ns Flush) 2 ml IV.FLUSH BID [place] Sodium Chloride (Ns Flush) 2 ml IV.FLUSH PRN PRN PRN Reason: FLUSH AFTER USING IV ACCESS <Riddhi Alexander - Last Filed: 07/07/18 19:09> Active Medications: Active Medications Acetaminophen (Tylenol) 650 mg PO Q4H PRN PRN Reason: Temp > 100.4 Last Admin: 07/07/18 22:57 Dose: 650 mg Al Hydroxide/Mg Hydroxide (Milk Of Magnesia Liq) 30 ml PO Q12H PRN PRN Reason: Mild Constipation Bisacodyl (Dulcolax Supp) 10 mg RECTAL DAILY PRN PRN Reason: SEVERE CONSITIPATION Flumazenil (Romazecon Inj) 0.2 mg IV.PUSH Q1M PRN PRN Reason: OVERSEDATION Folic Acid (Folic Acid) 1 mg PO DAILY [facility] Last Admin: 07/07/18 17:53 Dose: 1 mg Furosemide (Lasix) 20 mg PO DAILY [facility] Last Admin: 07/07/18 17:53 Dose: 20 mg Haloperidol Lactate (Haldol Inj) 1 mg IV.PUSH Q15M PRN PRN Reason: for severe agitation Sodium Chloride (1/2 Normal Saline Inj) 1,000 mls @ 75 mls/hr IV.CONT .[id number] [facility] Last Admin: 07/08/18 03:26 Dose: Not Given Ceftriaxone Sodium 1,000 mg/ (Sodium Chloride) 100 mls @ 200 mls/hr IV.SIG Q24H [facility] Last Infusion: 07/07/18 23:35 Dose: Infused Lactulose (Lactulose Liq) 30 ml PO DAILY PRN PRN Reason: SEVERE CONSITIPATION Lorazepam (Ativan) 2 mg PO Q2H PRN PRN Reason: for CIWA 11-14 Lorazepam (Ativan Inj) 2 mg IV.PUSH Q2H PRN PRN Reason: for CIWA 11-14 Lorazepam (Ativan Inj) 2 mg IV.PUSH Q1H PRN PRN Reason: for CIWA 15-20 Lorazepam (Ativan Inj) 2 mg IV.PUSH Q15M PRN PRN Reason: for CIWA > 20 Lorazepam (Ativan Inj) 1 mg IV.PUSH Q4H PRN PRN Reason: for CIWA 8-10 Lorazepam (Ativan) 1 mg PO Q4H PRN PRN Reason: for CIWA 8-10 Last Admin: 07/07/18 22:57 Dose: 1 mg Multivitamins (Theragran) 1 tab PO DAILY [facility] Ondansetron HCl (Zofran Inj) 4 mg IV.PUSH Q6H PRN PRN Reason: NAUSEA OR VOMITING Last Admin: 07/07/18 19:12 Dose: 4 mg Sennosides (Senokot) 17.2 mg PO Q12H PRN PRN Reason: Moderate Constipation Sodium Chloride (Ns Flush) 2 ml IV.FLUSH BID [facility] Last Admin: 07/07/18 22:40 Dose: Not Given Sodium Chloride (Ns Flush) 2 ml IV.FLUSH PRN PRN PRN Reason: FLUSH AFTER USING IV ACCESS Spironolactone (Aldactone) 50 mg PO DAILY [facility] Last Admin: 07/07/18 17:53 Dose: 50 mg <Sae Do - Last Filed: 07/08/18 08:23> Allergies Allergy/AdvReac Type Severity Reaction Status Date / Time No Known Allergies Allergy Uncoded 01/18/17 12:32 Home Medications Medication Instructions Recorded Confirmed Type No Known Home Medications 07/06/18 07/06/18 History Exam Vital signs: Vital Signs 07/06/18 19:44 07/06/18 20:00 07/06/18 22:05 Temperature 98.7 F Pulse Rate 81 Respiratory Rate 16 Blood Pressure 126/74 Pulse Oximetry 97 95 97 07/07/18 00:00 07/07/18 02:31 07/07/18 02:46 Temperature 98.5 F 98.3 F 97.5 F L Pulse Rate 85 84 86 Respiratory Rate 18 18 18 Blood Pressure 122/66 114/60 108/59 L Pulse Oximetry 94 L 95 07/07/18 02:47 07/07/18 04:00 07/07/18 04:52 Temperature 97.5 F L 98.6 F 98.1 F Pulse Rate 86 81 86 Respiratory Rate 18 18 18 Blood Pressure 108/59 L 116/60 118/72 Pulse Oximetry 96 95 95 07/07/18 07:57 07/07/18 08:00 Temperature 98.3 F Pulse Rate 84 Respiratory Rate 16 Blood Pressure 124/64 Pulse Oximetry 97 94 L Intake & Output 07/06/18 07/07/18 07/07/18 18:59 06:59 18:59 Intake Total 340 / 340 Balance 340 / 340 Weight 53.1 kg Intake: IV 100 / 100 Rocephin Inj 1,000 MG In NS Inj 100 / 100 100 ML @ 200 mls/hr IV.SIG ONCE ONE Rx#:[id number] Oral 240 / 240 Intake (Blood Product) Amt 0 / 0 Plt Pheresis S Leukoreduced 0 / 0 Unit [id number] Other: # Voids 1 Date of Last Bowel Movement 07/06/18 Weight On Admission 52.163 kg - Constitutional thin, chronically ill appearing, cooperative - Routine HEENT Exam Head: Present: normocephalic, abrasion, hematoma, facial swelling Eye: Present: conjunctival icterus - Routine Respiratory Exam Present: CTA bilaterally. Absent: accessory muscle use - Routine Cardiovascular Exam Present: RRR - Routine Abdominal Exam Present: soft, normoactive bowel sounds, distended. Absent: tenderness, guarding Comments: Marked ascites - Routine Extremities Exam Absent: edema - Routine Skin Exam Present: dry, warm. Absent: jaundice - Routine Neurological Exam Present: alert, oriented X3 <Alexander,Riddhi - Last Filed: 07/07/18 19:09> Vital signs: Vital Signs 07/07/18 12:00 07/07/18 16:00 07/07/18 20:00 Temperature 99.5 F 99.4 F 98.6 F Pulse Rate 97 H 92 H 98 H Respiratory Rate 16 16 16 Blood Pressure 129/78 137/76 140/66 Pulse Oximetry 94 L 96 92 L 07/08/18 00:00 07/08/18 04:00 07/08/18 07:40 Temperature 98.1 F 98.2 F 98.6 F Pulse Rate 94 H 92 H 95 H Respiratory Rate 16 16 20 Blood Pressure 134/71 142/78 H 151/75 H Pulse Oximetry 92 L 96 91 L Intake & Output 07/07/18 07/08/18 07/08/18 18:59 06:59 18:59 Intake Total 1580 / 1580 100 / 100 Balance 1580 / 1580 100 / 100 Intake: IV 1000 / 1000 100 / 100 1/2 Normal Saline Inj 1,000 ML 1000 / 1000 @ 75 mls/hr IV.CONT .[id number] [facility] Rx#:[id number] Rocephin Inj 1,000 MG In NS Inj 100 / 100 100 ML @ 200 mls/hr IV.SIG Q24H [facility] Rx#:[id number] Oral 580 / 580 Other: # Voids 4 3 Date of Last Bowel Movement 07/07/18 07/07/18 <Sae Do - Last Filed: 07/08/18 08:23> Results - Labs CBC & Chem 7: 07/07/18 07:12 07/07/18 07:12 Labs: Laboratory Results - last 24 hr 07/06/18 07/06/18 07/06/18 20:15 20:15 20:15 WBC 3.8 L RBC 3.02 L Hgb 11.0 L Hct 32.2 L MCV 106.6 H MCH 36.3 H MCHC 34.0 RDW 16.0 Plt Count 39 L MPV 8.6 Prelim Diff (Auto) Slide review pending Neut % (Auto) 56.5 Lymph % (Auto) 25.0 Henderson % (Auto) 13.4 H Eos % (Auto) 2.9 Baso % (Auto) 2.2 H Neut # (Auto) 2.1 Lymph # (Auto) 1.0 Henderson # (Auto) 0.5 Eos # (Auto) 0.1 Baso # (Auto) 0.1 WBC Differential . Diff Scan Auto diff confirmed Differential Comment . Platelet Estimate Low L Platelet Morphology Normal PT 11.3 INR 1.1 Sodium 146 H Potassium 3.6 Chloride 113 H Carbon Dioxide 24.5 Anion Gap 9 BUN 14 Creatinine 0.62 Estimated GFR Greater than 89 Random Glucose 117 H Calcium 8.4 L Magnesium 1.9 Total Bilirubin 1.7 H AST 90 H ALT 24 Alkaline Phosphatase 318 H Total Protein 7.6 Albumin 2.9 L Urine Color Urine Clarity Urine pH Ur Specific Cookson Urine Protein Urine Glucose (UA) Urine Ketones Urine Occult Blood Urine Nitrate Urine Bilirubin Urine Urobilinogen Ur Leukocyte Esterase Urine WBC Ur Squamous Epith Cells Urine Bacteria Hyaline Casts Urine Mucus Micro UA Comment Ur Microscopic Review Urine Culture Comments Serum Alcohol 369 H Blood Type Blood Type Recheck Antibody Screen Bld Prod Order Comment 07/06/18 07/06/18 07/06/18 20:15 20:15 21:50 WBC RBC Hgb Hct MCV MCH MCHC RDW Plt Count MPV Prelim Diff (Auto) Neut % (Auto) Lymph % (Auto) Henderson % (Auto) Eos % (Auto) Baso % (Auto) Neut # (Auto) Lymph # (Auto) Henderson # (Auto) Eos # (Auto) Baso # (Auto) WBC Differential Diff Scan Differential Comment Platelet Estimate Platelet Morphology PT INR Sodium Potassium Chloride Carbon Dioxide Anion Gap BUN Creatinine Estimated GFR Random Glucose Calcium Magnesium Total Bilirubin AST ALT Alkaline Phosphatase Total Protein Albumin Urine Color Yellow Urine Clarity Hazy H Urine pH 6.0 Ur Specific Cookson 1.019 Urine Protein Negative Urine Glucose (UA) Negative Urine Ketones Negative Urine Occult Blood Negative Urine Nitrate Positive H Urine Bilirubin Negative Urine Urobilinogen Less than 2 Ur Leukocyte Esterase Negative Urine WBC 2 Ur Squamous Epith Cells 2 Urine Bacteria Many H Hyaline Casts 1 Urine Mucus Few H Micro UA Comment Culture indicated Ur Microscopic Review Not Reportable Urine Culture Comments Culture indicated Serum Alcohol Cancelled Blood Type A Negative Blood Type Recheck Required Antibody Screen Negative Bld Prod Order Comment 07/06/18 07/07/18 07/07/18 21:50 07:12 07:12 WBC 3.9 L RBC 2.76 L Hgb 10.0 L Hct 29.9 L MCV 108.2 H MCH 36.3 H MCHC 33.6 RDW 15.9 Plt Count 82 L D MPV 8.6 Prelim Diff (Auto) Slide review pending Neut % (Auto) 63.5 Lymph % (Auto) 20.6 Henderson % (Auto) 12.9 H Eos % (Auto) 1.7 Baso % (Auto) 1.3 Neut # (Auto) 2.5 Lymph # (Auto) 0.8 L Henderson # (Auto) 0.5 Eos # (Auto) 0.1 Baso # (Auto) 0.1 WBC Differential . Diff Scan Auto diff confirmed Differential Comment . Platelet Estimate Low L Platelet Morphology Normal PT INR Sodium 145 Potassium 3.4 L Chloride 113 H Carbon Dioxide 21.5 Anion Gap 11 BUN 12 Creatinine 0.53 Estimated GFR Greater than 89 Random Glucose 85 Calcium 7.7 L Magnesium Total Bilirubin 1.9 H AST 72 H ALT 18 Alkaline Phosphatase 272 H Total Protein 6.8 D Albumin 2.7 L Urine Color Urine Clarity Urine pH Ur Specific [place] Urine Protein Urine Glucose (UA) Urine Ketones Urine Occult Blood Urine Nitrate Urine Bilirubin Urine Urobilinogen Ur Leukocyte Esterase Urine WBC Ur Squamous Epith Cells Urine Bacteria Hyaline Casts Urine Mucus Micro UA Comment Ur Microscopic Review Urine Culture Comments Serum Alcohol Blood Type Blood Type Recheck Antibody Screen Bld Prod Order Comment - Imaging Impressions Head CT 07/06/18 19:53 CONCLUSION: 1. No acute intracranial abnormality. . <Riddhi Alexander - Last Filed: 07/07/18 19:09> - Labs CBC & Chem 7: 07/07/18 07:12 07/07/18 07:12 Labs: Laboratory Results - last 24 hr 07/07/18 07/07/18 07:12 07:12 WBC 3.9 L RBC 2.76 L Hgb 10.0 L Hct 29.9 L MCV 108.2 H MCH 36.3 H MCHC 33.6 RDW 15.9 Plt Count 82 L D MPV 8.6 Prelim Diff (Auto) Slide review pending Neut % (Auto) 63.5 Lymph % (Auto) 20.6 Henderson % (Auto) 12.9 H Eos % (Auto) 1.7 Baso % (Auto) 1.3 Neut # (Auto) 2.5 Lymph # (Auto) 0.8 L Henderson # (Auto) 0.5 Eos # (Auto) 0.1 Baso # (Auto) 0.1 WBC Differential . Diff Scan Auto diff confirmed Differential Comment . Platelet Estimate Low L Platelet Morphology Normal Sodium 145 Potassium 3.4 L Chloride 113 H Carbon Dioxide 21.5 Anion Gap 11 BUN 12 Creatinine 0.53 Estimated GFR Greater than 89 Random Glucose 85 Calcium 7.7 L Total Bilirubin 1.9 H AST 72 H ALT 18 Alkaline Phosphatase 272 H Total Protein 6.8 D Albumin 2.7 L - Imaging Impressions Liver Ultrasound 07/07/18 00:00 CONCLUSION: 1. Cirrhotic liver and ascites. <Sae Do - Last Filed: 07/08/18 08:23> Assessment and Plan (1) Cirrhosis Status: Acute Code(s): K74.60 - Unspecified cirrhosis of liver - Plan This patient is a 62-year-old female with a past medical history significant for alcohol abuse and cirrhosis. Patient denies any previous surgeries. Upon consultation, patient endorses that she tripped and fell while walking down her driveway to get the mail. Patient endorses generalized weakness. She denies chest pain or shortness of breath. Denies abdominal pain nausea or vomiting. Of note, patient has a significant amount of ascites for which she said she had a therapeutic paracentesis lastly done 6 months ago. Patient denies any use of diuretics or any prescription medications. She denies use of aspirin but does endorse taking ibuprofen as needed for generalized discomfort joint pain. Patient denies any noted bleeding. Denies melena or hematemesis. States she was diagnosed with cirrhosis in 2015. Last EGD done August 12, 2016 revealed portal hypertensive gastropathy in the gastric fundus as well as gastritis in the gastric antrum. Denies any symptoms of acid reflux, difficulty swallowing or painful swallowing. Patient denies ever having had a colonoscopy. States she has brown soft stools 2-3 times daily without any noted bleeding. Patient endorses tobacco use 1-2 cigarettes daily and reports that she drinks 2 bottles of vodka a week. Patient states she stopped taking diuretics 6 months ago because she "felt like she was urinating too much". Patient endorses family history of liver cirrhosis-her brother. Our service has been consulted to evaluate patient for establishment of care and medication recommendations for cirrhosis. Cirrhosis likely due to alcohol abuse Patient presented to [facility] with report of trip and fall, generalized weakness. Patient denies any noted bleeding. States she drinks 2 bottles of vodka weekly and discontinued diuretic medication 6 months ago. Last paracentesis done at that time. Large amount of ascites on exam. 08/12/2016 EGD revealed the following findings--portal hypertensive gastropathy in the gastric fundus, erythematous gastritis in the gastric antrum. WBC 3.9 hemoglobin 10 hematocrit 29.9 platelet count 82-platelet count 39 on admission 07/06/[address] revealed the following--No acute intracranial abnormality. Plan -Therapeutic paracentesis -Aldactone 50 mg p.o. daily -Multivitamin 1 tablet p.o. daily -Diet as tolerated -Avoid hepatotoxins -Alcohol cessation -Avoid NSAIDs and aspirin -IV hydration -Antiemetic as per attending -Patient to follow-up with [facility] post discharge for establishment of care -Supportive care -GI will sign off at this time, please notify for any additional assistance This patient has been seen by myself and Dr. Do and this note is written on his behalf - Attending Attestation Hi <Riddhi Alexander - Last Filed: 07/07/18 19:09> (1) Cirrhosis Status: Acute Code(s): K74.60 - Unspecified cirrhosis of liver - Attending Attestation I have seen and examined the patient and agree with the above note. <Sae Do - Last Filed: 07/08/18 08:23>
--- NOTE | 2018-07-07 16:19 | P.HPIM ---
History of Present Illness Primary Care Physician: FRANCO GUAMAN Patient is a 62-year-old female past medical history of alcoholic cirrhosis who presents emergency department after mechanical fall in her residence. Patient reports that she tripped over herself while taking out the garbage and fell down striking part of her face. Patient denied prodromal symptoms including chest pain, palpitations, lightheadedness, dizziness, or other acute complaints. Patient reports that she occasionally has ascites fluid accumulation for which she gets tapped. Patient was last tapped approximately 6 months ago. Patient reports that she is not currently on any medications including spinal lactone and/or Lasix. Patient reports that she last consumed alcohol about 1 year ago but her toxicology says otherwise. Diagnosis (1) Cirrhosis: Review of Systems Review of Systems: all other systems reviewed are negative [facility] Medical History Medical History Liver failure (Acute) Surgical History Surgical History No history of previous surgery (Acute) Social History Social History Substance History: No History of Abuse Second Hand Smoke Exposure: No Smoking Status: Light tobacco smoker Tobacco Type: Cigarettes How Often Do You Have a Drink Containing Alcohol: Monthly or less Recent Travel in [facility] within the Last 8 Weeks: No Recent Out of Country Travel within the Last 8 Weeks: No Immunization History Tetanus Immunization: Unsure Medications and Allergies Allergies Allergy/AdvReac Type Severity Reaction Status Date / Time No Known Allergies Allergy Uncoded 01/18/17 12:32 Home Medications Medication Instructions Recorded Confirmed Type No Known Home Medications 07/06/18 07/06/18 History Active Medications: Active Medications Acetaminophen (Tylenol) 650 mg PO Q4H PRN PRN Reason: Temp > 100.4 Last Admin: 07/07/18 13:53 Dose: 650 mg Al Hydroxide/Mg Hydroxide (Milk Of Magnesia Liq) 30 ml PO Q12H PRN PRN Reason: Mild Constipation Bisacodyl (Dulcolax Supp) 10 mg RECTAL DAILY PRN PRN Reason: SEVERE CONSITIPATION Flumazenil (Romazecon Inj) 0.2 mg IV.PUSH Q1M PRN PRN Reason: OVERSEDATION Folic Acid (Folic Acid) 1 mg PO DAILY SHELBIE Haloperidol Lactate (Haldol Inj) 1 mg IV.PUSH Q15M PRN PRN Reason: for severe agitation Sodium Chloride (1/2 Normal Saline Inj) 1,000 mls @ 75 mls/hr IV.CONT .[id number] [facility] Last Admin: 07/06/18 22:53 Dose: 75 mls/hr Ceftriaxone Sodium 1,000 mg/ (Sodium Chloride) 100 mls @ 200 mls/hr IV.SIG Q24H [facility] Lactulose (Lactulose Liq) 30 ml PO DAILY PRN PRN Reason: SEVERE CONSITIPATION Lorazepam (Ativan) 2 mg PO Q2H PRN PRN Reason: for CIWA 11-14 Lorazepam (Ativan Inj) 2 mg IV.PUSH Q2H PRN PRN Reason: for CIWA 11-14 Lorazepam (Ativan Inj) 2 mg IV.PUSH Q1H PRN PRN Reason: for CIWA 15-20 Lorazepam (Ativan Inj) 2 mg IV.PUSH Q15M PRN PRN Reason: for CIWA > 20 Lorazepam (Ativan Inj) 1 mg IV.PUSH Q4H PRN PRN Reason: for CIWA 8-10 Lorazepam (Ativan) 1 mg PO Q4H PRN PRN Reason: for CIWA 8-10 Ondansetron HCl (Zofran Inj) 4 mg IV.PUSH Q6H PRN PRN Reason: NAUSEA OR VOMITING Sennosides (Senokot) 17.2 mg PO Q12H PRN PRN Reason: Moderate Constipation Sodium Chloride (Ns Flush) 2 ml IV.FLUSH BID [facility] Last Admin: 07/07/18 12:11 Dose: Not Given Sodium Chloride (Ns Flush) 2 ml IV.FLUSH PRN PRN PRN Reason: FLUSH AFTER USING IV ACCESS Physical Exam Vital signs: Last Vital Signs Temp 99.5 F 07/07/18 12:00 Pulse 97 H 07/07/18 12:00 Resp 16 07/07/18 12:00 BP 129/78 07/07/18 12:00 Pulse Ox 94 L 07/07/18 12:00 Intake & Output 07/05/18 07/06/18 07/07/18 07/08/18 06:59 06:59 06:59 06:59 Intake Total 340 / 340 Balance 340 / 340 Weight 53.1 kg General: No acute distress, conversational HEENT: Small hematoma over right anterior forehead and a black eye present bilaterally. EOMI, PERRLA Cardia vascular: S1/S2. Regular rate and rhythm Respiratory: Clear to auscultation Gastrointestinal: Mild abdominal distention, soft, nontender, nondistended, positive fluid wave. Positive bowel sounds Extremity: No lower extremity edema Results Labs CBC & Chem 7: 07/07/18 07:12 07/07/18 07:[address] 07/06/18 19:53 CONCLUSION: 1. No acute intracranial abnormality. . Caprini VTE Risk Assessment Caprini VTE Risk Assessment: Moderate/High Risk (score >= 2) Caprini Risk Assessment Model: Point Value = 1 Point Value = 2 Point Value = 3 Point Value = 5 Age 41-60 Minor surgery BMI > 25 kg/m2 Swollen legs Varicose veins or History of unexplained or recurrent spontaneous Oral contraceptives or hormone replacement Sepsis (< 1 month) Serious lung disease, including pneumonia (< 1 month) Abnormal pulmonary function Acute myocardial infarction Congestive heart failure (< 1 month) History of inflammatory bowel disease Medical patient at bed rest Age 61-74 Arthroscopic surgery Major open surgery (> 45 min) Laparoscopic surgery (> 45 min) Malignancy Confined to bed (> 72 hours) Immobilizing plaster cast Central venous access Age >= 75 History of VTE Family history of VTE Factor V Leiden Prothrombin [id number] Lupus anticoagulant Anticardiolipin antibodies Elevated serum homocysteine Heparin-induced thrombocytopenia Other congenital or acquired thrombophilia Stroke (< 1 month) Elective arthroplasty Hip, pelvis, or leg fracture Acute spinal cord injury (< 1 month) Prophylaxis Regimen: Total Risk Factor Score Risk Level Prophylaxis Regimen 0-1 Low Early ambulation 2 Moderate Order ONE of the following: *Sequential Compression Device (SCD) *Heparin 5000 units SQ BID 3-4 Higher Order ONE of the following medications: *Heparin 5000 units SQ TID *Enoxaparin/Lovenox 40 mg SQ daily (WT < 150 kg, CrCl > 30 mL/min) *Enoxaparin/Lovenox 30 mg SQ daily (WT < 150 kg, CrCl > 10-29 mL/min) *Enoxaparin/Lovenox 30 mg SQ BID (WT < 150 kg, CrCl > 30 mL/min) AND/OR *Sequential Compression Device (SCD) 5 or more Highest Order ONE of the following medications: *Heparin 5000 units SQ TID (Preferred with Epidurals) *Enoxaparin/Lovenox 40 mg SQ daily (WT < 150 kg, CrCl > 30 mL/min) *Enoxaparin/Lovenox 30 mg SQ daily (WT < 150 kg, CrCl > 10-29 mL/min) *Enoxaparin/Lovenox 30 mg SQ BID (WT < 150 kg, CrCl > 30 mL/min) AND *Sequential Compression Device (SCD) Assessment and Plan (1) Cirrhosis: Code(s): K74.60 - Unspecified cirrhosis of liver Status: Acute Plan Patient is a 8-year-old female with past medical history of alcoholic cirrhosis occasionally requiring paracentesis who presents to [facility] department status post mechanical fall. Orthopedics: Mechanical fall appears that patient follow-up was mechanical in nature she tripped over herself. No prodromal symptoms endorsed including lightheadedness or palpitations prior to fall. Physical therapy has evaluated patient and she has a rolling walker at home Gastroenterology: Alcohol cirrhosis Patient again counseled on importance of alcohol cessation. Gastroenterology consulted regarding establishment of care and optimization prior to discharge Begin spironolactone 50 and Lasix 20 mg with plan outpatient titration CIWA protocol symptom base - folic acid 1 mg qD DVT prophylaxis: SCD CODE STATUS: Full code Disposition: Medical surgical unit. Anticipated discharge in 24-48 hours from today H&P: Quality VTE Deep Vein Thrombosis/Pulmonary Embolism Present on Admission: No _ (1) Cirrhosis Qualifiers: Ascites presence: Hepatic cirrhosis type:
--- NOTE | 2018-07-07 16:32 | US ---
EXAM DATE: 07/07/2018 4:25 PM EST AGE/SEX: 62 years / Female INDICATIONS: Elevated lab values. CLINICAL DATA: This is the patient's initial encounter. Patient reports that signs and symptoms have been present for 4 - 6 days and indicates a pain score of 2/10. MEDICAL/SURGICAL HISTORY: Cirrhosis. None. COMPARISON: No prior exams available for comparison. MEASUREMENTS: Liver:__ 14.0 cm. Common Bile Duct:__ 7mm. Right Kidney:__ 10.2 x 4.1 x 4.9 cm. FINDINGS: Liver: The liver is cirrhotic with slight ascites in the upper abdomen. Portal Vein: Hepatopedal flow seen in portal vein. Common Duct: No intraluminal mass or stone visualized. Gallbladder: Gallbladder wall measures 5 mm and appears thickened. Pancreas: The visualized portions are within normal limits Right Kidney: Normal echogenicity and cortical thickness. No mass or hydronephrosis. Other: None.b CONCLUSION: 1. Cirrhotic liver and ascites. Electronically signed by: Gabi Briscoe MD Board Certified Radiologist 07/07/2018 4:31 PM EST
[2018-07-07] MEDS: Spironolactone 50 MG Tablet PO SCH (17:53)
[2018-07-07] MEDS: Sodium Chloride 0.45 % Inj 1,000 ML IV.CONT SCH (17:53)
[2018-07-07] MEDS: Furosemide 20 MG Tablet PO SCH (17:53)
[2018-07-07] MEDS: Folic Acid 1 MG Tablet PO SCH (17:53)
[2018-07-07] MEDS: LORazepam 1 MG Tablet PO PRN (22:57)
[2018-07-08] MEDS: Sodium Chloride 0.45 % Inj 1,000 ML IV.CONT SCH (03:26)
[2018-07-08] MEDS: Spironolactone 50 MG Tablet PO SCH (09:25)
[2018-07-08] MEDS: Folic Acid 1 MG Tablet PO SCH (09:25)
[2018-07-08] MEDS: Furosemide 20 MG Tablet PO SCH (09:25)
[2018-07-08 09:33] LABS: Hematocrit 33.7 % (35.0-46.0); Hemoglobin 11.4 gm/dL (11.6-15.3); Mean Corpuscular HGB Conc 33.7 % (32.0-36.0); Mean Corpuscular Volume 109.6 fL (80.0-100.0); Mean Platelet Volume 8.5 fL (7.0-11.0); Platelet Count 58 th/mm3 (150-450); Red Blood Count 3.07 mil/mm3 (4.00-5.30); Red Cell Distribution Width 15.8 % (11.6-17.2); White Blood Count 4.7 th/mm3 (4.0-11.0)
[2018-07-08 09:40] LABS: INR 1.3 Ratio; Prothrombin Time 12.8 sec (9.8-11.6)
[2018-07-08 10:01] LABS: Calcium 8.5 mg/dL (8.5-10.1); Carbon Dioxide 20.9 meq/L (21.0-32.0); Potassium 3.7 meq/L (3.5-5.1)
--- NOTE | 2018-07-08 13:34 | US ---
EXAM DATE: 07/08/2018 1:13 PM EST AGE/SEX: 62 years / Female INDICATIONS: Ascites. CLINICAL DATA: This is the patient's subsequent encounter. Patient reports that signs and symptoms h ave been present for > 1 year and indicates a pain score of 1/10. MEDICAL/SURGICAL HISTORY: . Cirrhosis. Renal failure. ETOH abuse. Ascites. . Paracentesis. COMPARISON: [facility], US ABDOMEN LIVER, 07/07/2018. . FLUID: Total volume of 4700 cc of clear, yellow fluid was removed. Fluid was discarded. Paracentesis was the rapeutic only. . . TECHNIQUE: Ultrasound guidance for abdominal paracentesis. Paracentesis. The risks, benefits, and alternatives to ultrasound guided paracentesis were explained to the patient in detail including the risk of bleeding and infection. Written and verbal informed consent was obt ained. With the patient on the ultrasound table, ultrasound imaging was used to select the most appropriate approach for paracentesis. Overlying skin was prepped and draped in the usual sterile fashion and wi th a local anesthetic, a dermatotomy was made with an 11 blade scalpel. A 6 [place] [id number] ca theter was introduced into the peritoneal cavity and fluid was collected. Post procedure scanning reveals no hematoma or other complication. The patient tolerated the procedu re well and left the ultrasound suite in stable condition. FINDINGS: Adequate fluid for paracentesis. CONCLUSION: 1. Uncomplicated paracentesis. Electronically signed by: Gerardo Tirado MD Board Certified Radiologist 07/08/2018 1:33 PM EST
[2018-07-08] MEDS ORDERED: Magnesium Sulfate Inj 2 GM in Sodium Chlor 0.9% Inj 96 ML IV.SIG ONE (14:25)
--- NOTE | 2018-07-08 14:26 | P.PNIM ---
Subjective Interval history: Patient seen and examined at the bedside no subjective fever or chills no abdominal pain but waiting for paracentesis to be done ambulates unit hgb stable no new headache Physical Exam Vital signs: Last Vital Signs Temp 98.5 F 07/08/18 13:14 Pulse 91 H 07/08/18 13:14 Resp 20 07/08/18 13:14 BP 163/70 H 07/08/18 13:14 Pulse Ox 98 07/08/18 13:14 Intake & Output 07/06/18 07/07/18 07/08/18 07/09/18 06:59 06:59 06:59 06:59 Intake Total 340 / 340 1680 / 1680 1000 / 1000 Balance 340 / 340 1680 / 1680 1000 / 1000 Weight 53.1 kg gen: nad heent: bilateral black eye, eomi, perrla cvs: s1/s2/ resp: cta bilaterally gi: + distention with fluid wave, + bowel sounds, no guarding, shifting dullness , + bowel sounds ext: no calf tenderness or edema Results Labs CBC & Chem 7: 07/08/18 08:44 07/08/18 08:44 Labs: Microbiology 07/06/18 20:15 Clean Catch Urine Urine Culture - Final >100,000 cfu/mL mixed bren (probable contaminants) Imaging Imaging: Impressions Liver Ultrasound 07/07/18 00:00 CONCLUSION: 1. Cirrhotic liver and ascites. Paracentesis Ultrasound 07/08/18 00:00 CONCLUSION: 1. Uncomplicated paracentesis. Assessment and Plan (1) Cirrhosis: Code(s): K74.60 - Unspecified cirrhosis of liver Status: Acute Plan Patient is a 8-year-old female with past medical history of alcoholic cirrhosis occasionally requiring paracentesis who presents to [facility] department status post mechanical fall. Orthopedics: Mechanical fall appears that patient follow-up was mechanical in nature she tripped over herself. No prodromal symptoms endorsed including lightheadedness or palpitations prior to fall. Physical therapy has evaluated patient and she has a rolling walker at home - tele monitoring Gastroenterology: Alcohol cirrhosis Patient again counseled on importance of alcohol cessation. Gastroenterology consulted and recommendation appreciated. reduced thrombopoetin levels in cirrhotic partially to explain thrombocytopenia. spironolactone 50 and Lasix 20 mg with plan outpatient titration [place] protocol symptom base - folic acid 1 mg qD - Paracentesis - PENDING DVT prophylaxis: SCD CODE STATUS: Full code Disposition: Medical surgical unit. Anticipated discharge in 24-48 hours . Progress Note: Quality VTE Deep Vein Thrombosis/Pulmonary Embolism Present on Admission: No _ (1) Cirrhosis Qualifiers: Hepatic cirrhosis type: Ascites presence:
[2018-07-08] MEDS: Mag Sulf 1 gm/100 ml Premix 100 ML IV.SIG SCH ×2 (15:36→17:03)
[2018-07-08] MEDS: Acetaminophen 325 MG Tablet PO PRN ×2 (15:43→22:08)
[2018-07-08] MEDS: LORazepam 1 MG Tablet PO PRN (22:08)
[2018-07-09 07:40] LABS: Hematocrit 35.1 % (35.0-46.0); Hemoglobin 11.9 gm/dL (11.6-15.3); Mean Corpuscular HGB Conc 33.9 % (32.0-36.0); Mean Corpuscular Volume 108.9 fL (80.0-100.0); Mean Platelet Volume 8.5 fL (7.0-11.0); Platelet Count 56 th/mm3 (150-450); Red Blood Count 3.23 mil/mm3 (4.00-5.30); White Blood Count 4.6 th/mm3 (4.0-11.0)
[2018-07-09 08:03] LABS: Calcium 8.8 mg/dL (8.5-10.1); Carbon Dioxide 23.2 meq/L (21.0-32.0); Potassium 3.5 meq/L (3.5-5.1)
[2018-07-09 08:08] VITALS: BP 158/65; PULSE 94; RESP 16; TEMP 97.9
[2018-07-09] MEDS: Folic Acid 1 MG Tablet PO SCH (09:02)
[2018-07-09] MEDS: Furosemide 20 MG Tablet PO SCH (09:02)
[2018-07-09] MEDS: Spironolactone 50 MG Tablet PO SCH (09:03)
[2018-07-09 09:35] LABS: INR 1.3 Ratio; Prothrombin Time 13.1 sec (9.8-11.6)
[2018-07-09 09:57] VITALS: O2SAT 96
--- NOTE | 2018-07-09 11:18 | P.DS ---
DS: Providers Date of admission: 07/06/18 21:52 Primary care physician: FRANCO GUAMAN Patient is a 62 year old female who presented to the ED after a fall. Patient with known history of cirrhosis but no outpatient follow up for treatment. while hospitalized GI consulted and patient started on spirnolactone and lasix. Patient evaluated by PT and recommended a walker which patient already has at home. Patient with paracentesis and removal of ascities fluid. Patient clinically stable for discharge and outpatient follow up with GI and PMD along with continued medications lasix and spirnolactone Consults: 07/07/18 09:41 Consult to Gastroenterology Routine Consulting Provider: Sae Do Reason for Consultation: 62F with cirrhosis and no outpt f/u or med's presenting after fall. labs w/ thrombocyto. estab care + med recc prior to dc Notified:: Service Spoke with:: helder Date Notified:: 07/07/18 Time Notified:: 09:52 Ordering Provider: KARENA DS: Diagnosis Discharge Diagnosis (1) Cirrhosis: Status: Acute DS: Summary Patient is a 62 year old female who presented to the ED after a fall. Patient with known history of cirrhosis but no outpatient follow up for treatment. while hospitalized GI consulted and patient started on spirnolactone and lasix. Patient evaluated by PT and recommended a walker which patient already has at home. Patient with paracentesis and removal of ascities fluid. Patient clinically stable for discharge and outpatient follow up with GI and PMD along with continued medications lasix and spirnolactone Time Spent with Patient Total time spent providing and/or coordinating discharge services: > 45 minutes Quality: VTE Deep Vein Thrombosis/Pulmonary Embolism Present on Admission: No Exam Narrative Exam Narrative: heent: no scleral icterus. + black eye cvs: s1/s2 resp: CTA bilaterally gi: soft, reduced distention, no guarding or rebound ext: no edema Results Labs on day of discharge: Labs from last 24 hours 07/09/18 07/09/18 07/09/18 08:37 06:31 06:31 WBC 4.6 RBC 3.23 L Hgb 11.9 Hct 35.1 MCV 108.9 H MCH 37.0 H MCHC 33.9 RDW 16.0 Plt Count 56 L MPV 8.5 PT 13.1 H INR 1.3 Sodium 136 Potassium 3.5 Chloride 102 Carbon Dioxide 23.2 Anion Gap 11 BUN 12 Creatinine 0.73 Estimated GFR 81 L Random Glucose 99 Calcium 8.8 Magnesium 07/09/18 06:31 WBC RBC Hgb Hct MCV MCH MCHC RDW Plt Count MPV PT INR Sodium Potassium Chloride Carbon Dioxide Anion Gap BUN Creatinine Estimated GFR Random Glucose Calcium Magnesium 2.3 D Impressions ITS Impressions Head CT 07/06/18 19:53 CONCLUSION: 1. No acute intracranial abnormality. . Liver Ultrasound 07/07/18 00:00 CONCLUSION: 1. Cirrhotic liver and ascites. Paracentesis Ultrasound 07/08/18 00:00 CONCLUSION: 1. Uncomplicated paracentesis. Discharge Plan Discharge Disposition Patient Disposition: Discharge Home Discharge Condition Condition: Stable Discharge Order Discharge Orders: Discharge Order (Routine); Ordered 07/09/18 Ordered By: Pj Tena Discharge Details Anticipated Discharge Date: 07/09/18 Discharge Comment: Use walker as needed for ambulation Physicians Team ED Provider: Sylvester Mendez Attending Provider: Pj Tena Providers: Sae Do Rxs /Orders / Referrals /Forms Prescriptions: New furosemide 20 mg Tablet 20 mg PO DAILY 30 Days Qty: 30 RF: 0 spironolactone 50 mg Tablet 50 mg PO DAILY 30 Days Qty: 30 RF: 0 folic acid 1 mg Tablet 1 mg PO DAILY 30 Days Qty: 30 RF: 1 multivitamin with folic acid [Thera] 400 mcg Tablet 1 tab PO DAILY 30 Days Qty: 30 RF: 0 No Action No Known Home Medications RF: 0 Referrals: FRANCO GUAMAN [Other] - See Instructions Sae Do MD [Physician] - See Instructions (Please call to schedule outpatient follow up and establishment of care for cirrhosis. Newly started on lasix 20mg daily and sprinolactone 50mg qD ) Status ED Status: Left Department
== END 2018-07-09 13:33 | disposition home or self-care (01) ==
LOC: NEPE 19:31 → NEDA 19:31 → NEPGCP 22:50
PROVIDERS: ADMIT Internal Medicine; ATTEND Internal Medicine